=== PATIENT | female | born 1935 | race Caucasian/White ===

== ENCOUNTER 2016-08-08 11:27 | Emergency (ER) | payer OTHER ==
[~2016-08-08] VITALS: Ht 154.9 cm; Wt 74.0 kg
[~2016-08-08 11:27] MED LIST: CLCC1250; CLTP; CYAN10005; FLV1; FSM70; LEVO-366 PO; METH2.5T; NAPR-1169; PROM25TA PO; [UNRECOGNIZED DRUG - CODE]
[2016-08-08 11:32] VITALS: TEMP 37.2; Ht 154.9 cm; Wt 74.0 kg
[2016-08-08 12:26] LABS: URINE APPEARANCE CLEAR (CLEAR); URINE BILIRUBIN NEG (NEG); URINE COLOR YELLOW; URINE EPITHELIAL CELL AUTO 20-30 /lpf (0-5); URINE NITRITE NEG (NEG); URINE PH 5.5 (4.5-7.5); URINE SPECIFIC GRAVITY 1.021 (1.000-1.030); UROBILINOGEN NEG (NEG)
[2016-08-08 12:36] LABS: MANUAL MICROSCOPIC REQUIRED? NO; REVIEW REQ? NO
[2016-08-08 13:28] LABS: BASO % 0.2 %; BASO ABS # 0.02 K/uL (0-0.2); COMPLETE YES; EOS % 0.4 %; HEMATOCRIT 39.8 % (37-47); IG% 0.3 %; LYMPH % 18.3 %; MEAN CELL VOLUME 94.5 fL (80-100); MEAN CORPUSCULAR HEMOGLOBIN 31.4 pg (25-34); MEAN CORPUSCULAR HGB CONC 33.2 g/dl (32-36); MONO % 8.4 %; NEUT % 72.4 %; PLATELET COUNT 260 K/uL (130-400); RED BLOOD COUNT 4.21 M/uL (4.2-5.4)
--- NOTE | 2016-08-08 13:37 | DIAGNOSTIC IMAGING REPORT ---
CT OF THE ABDOMEN AND PELVIS WITHOUT CONTRAST CLINICAL HISTORY: Hematuria, suprapubic pain. COMPARISON STUDY: Renal ultrasound October 07, 2007. TECHNIQUE: Axial images of the abdomen and pelvis were obtained without IV contrast. Images were reviewed in the axial, sagittal, and coronal planes. FINDINGS: A few calcified left lower lobe granulomas are noted. There is a small hiatal hernia. No renal, ureteral or bladder calculi are identified. There is no hydronephrosis or hydroureter. A 1.4 cm lesion within the mid to lower pole of the left kidney is suboptimally assessed on this unenhanced exam but measures water attenuation and favors a cyst. Evaluation of the remainder of the abdomen and pelvis is suboptimal on this unenhanced exam. The liver, spleen, adrenal glands and pancreas are normal. There is no lymphadenopathy. There is no evidence for a bowel obstruction. There is extensive sigmoid diverticulosis without evidence for acute diverticulitis. Bladder suboptimally assessed given underdistention. There are no suspicious osseous lesions. There are multilevel degenerative changes within the lumbar spine. There is no ascites. IMPRESSION: 1. No urinary calculi or hydronephrosis. 2. No acute process within the abdomen or pelvis on unenhanced exam. 3. Suboptimal evaluation of the bladder given lack of IV contrast and underdistention. Decreased sensitivity for detection of urothelial lesions on this exam. Electronically signed by: Gregory Ly M.D. 08/08/2016 1:35 PM Dictated Date/Time: 08/08/2016 1:26 PM
[2016-08-08 13:45] LABS: BUN/CREATININE RATIO 20.8 (10-20); CALCIUM 9.9 mg/dl (8.5-10.1); CREATININE 1.1 mg/dl (0.60-1.20); POTASSIUM 3.4 mmol/L (3.5-5.1)
[2016-08-08] MEDS ORDERED: CYAN100020 PO (14:20)
[2016-08-08] MEDS ORDERED: PRLSR20 PO (14:20)
[2016-08-08] MEDS ORDERED: ALEN70TA2 PO (14:20)
[2016-08-08] MEDS ORDERED: FOLI1TAB7 PO (14:20)
[2016-08-08] MEDS ORDERED: CIPR1TAB11 PO (14:20)
[2016-08-08] MEDS ORDERED: METH2.5T PO (14:20)
[2016-08-08] MEDS ORDERED: MXZC25 PO (14:20)
[2016-08-08] MEDS ORDERED: CALC200T PO (14:21)
[2016-08-08 14:27] VITALS: BP 167/97; PULSE 89; O2SAT 96
[2016-08-08] MEDS ORDERED: NITR-5 PO (14:57)
--- NOTE | 2016-08-11 07:51 | EMERGENCY ROOM VISIT NOTE ---
History First contact with patient: 11:44 Chief Complaint: URINARY SYMPTOMS Stated Complaint: BLADDER INFECTION Nursing Triage Summary: pt here with urinary burning and frequency last pm. pt states hx of bladder infections. pt states some soreness to lower abd area and across low back History of Present Illness The patient is a 81 year old white female who presents to the Emergency Room with complaints of suprapubic discomfort, urinary urgency and frequency, and burning when she pes. She denies any blood. Symptoms started last evening. She states she also had some urinary incontinence last night. She has a history of bladder infections, and her most recent one was in May. She describes some soreness in her low back. No fevers or chills. No nausea or vomiting. No upper abdominal pain. Her daughter accompanies her today. She has not contacted her PCP. She denies any other concerns. Review of Systems REVIEW OF SYSTEM: HEENT: No dizziness, visual problems, hearing loss, or tinnitus. There is no difficulty swallowing and no oral lesions are present. LYMPH: No adenopathy. PULMONARY: No cough, shortness of breath, sputum production or hemoptysis. CARDIOVASCULAR: No chest pain, palpitations, shortness of breath or peripheral edema. GASTROINTESTINAL: No diarrhea, constipation, nausea, vomiting, or abdominal pain. GENITOURINARY: positive dysuria, frequency, urgency and nocturia. NEUROLOGIC: No weakness, muscle tenderness, epilepsy or history of neurological problems. MUSCULOSKELETAL: No history of joint tenderness/swelling. Positive history of arthritis and arthralgias. SKIN: No rashes or lesions. ENDOCRINE: No history of diabetes, thyroid disorders, or abnormal hair growth. Past Medical/Surgical History Past medical history: Significant for GERD, UTIs, osteoporosis, osteoarthritis Previous surgeries: None Family History Significant for diabetes, heart disease, hypertension, cancer, and kidney disease. Parents are . Social History Smoking Status: Never Smoker Smokeless Tobacco Use: No Alcohol Use: none Drug Use: none Marital Status: Housing Status: lives with family Occupation Status: retired Current/Historical Medications Scheduled Alendronate Sodium (Fosamax), 70 MG PO WK Calcium Carbonate-Vitamin D (Oscal 500/200 D-3), 1 TAB PO BID Ciprofloxacin Tab (Cipro), 250 MG PO BID Cyanocobalamin (Vitamin B12), 1,000 MCG PO DAILY Folic Acid (Folvite), 1 MG PO DAILY Methotrexate (Methotrexate), 15 MG PO WK Nitrofurantoin Monohyd Macrocr (Macrobid), 100 MG PO BID Omeprazole (Prilosec), 20 MG PO DAILY Triamterene/Hctz (Triamterene/Hctz 37.5-25MG Tab), 1 TAB PO DAILY Allergies Coded Allergies: No Known Allergies (Unverified Allergy, Mild, 10/17/05) Uncoded Allergies: LATEX-NO (Allergy, Unknown, 05/09/02) N (Allergy, Unknown, 03/23/02) NONE (Allergy, Unknown, 03/23/02) Physical Exam Vital Signs Date Time Temp Pulse Resp B/P (MAP) Pulse Ox O2 Delivery O2 Flow Rate FiO2 08/08/16 14:27 89 16 167/97 96 Room Air 08/08/16 13:10 87 18 173/86 95 Room Air 08/08/16 11:32 37.2 103 20 164/87 94 Room Air Pain Rating (0-10): 0 Physical Exam Gen.: Well-developed, frail, elderly white female, in no acute distress. Sitting on a bed. Alert and oriented. Skin:Warm and dry with fair turgor. No rashes or lesions. No ecchymosis or erythema. The patient is not diaphoretic. No abrasions. Heart: Heart RRR. No GR. Soft systolic murmur is noted. Peripheral pulses are 2+. Lungs: Lungs are clear to auscultation. No crackles rhonchi or wheezing. Good air movement. The patient is able to take a deep breath. Abdomen: Abdomen was inspected, auscultated, and palpated. Bowel sounds present x 4. Soft, suprapubic discomfort to palpation. No hepato- splenomegaly. No masses noted. No rebound. No pain over McBurney's point. No CVA tenderness. Musculoskeletal: Gross motor function of the upper and lower extremities is intact and unremarkable. Medical Decision & Procedures ER Provider Diagnostic Interpretation: CT imaging of the abdomen and pelvis without IV contrast was obtained. No evidence for urinary calculi or hydronephrosis. No acute process within the abdomen or pelvis. Laboratory Results 08/08/16 13:05 Red Blood Count 4.21, Mean Corpuscular Volume 94.5, Mean Corpuscular Hemoglobin 31.4, Mean Corpuscular Hemoglobin Concent 33.2, Mean Platelet Volume 10.0, Neutrophils (%) (Auto) 72.4, Lymphocytes (%) (Auto) 18.3, Monocytes (%) (Auto) 8.4, Eosinophils (%) (Auto) 0.4, Basophils (%) (Auto) 0.2, Neutrophils # (Auto) 9.49, Lymphocytes # (Auto) 2.40, Monocytes # (Auto) 1.10, Eosinophils # (Auto) 0.05, Basophils # (Auto) 0.02 08/08/16 13:05 Test 08/08/16 11:50 08/08/16 13:05 Urine Color YELLOW Urine Appearance CLEAR (CLEAR) Urine pH 5.5 (4.5-7.5) Urine Specific [place] 1.021 (1.000-1.030) Urine Protein TRACE (NEG) Urine Glucose (UA) NEG (NEG) Urine Ketones NEG (NEG) Urine Occult Blood 3+ (NEG) Urine Nitrite NEG (NEG) Urine Bilirubin NEG (NEG) Urine Urobilinogen NEG (NEG) Urine Leukocyte Esterase TRACE (NEG) Urine WBC (Auto) 1-5 /hpf (0-5) Urine RBC (Auto) 10-30 /hpf (0-4) Urine Hyaline Casts (Auto) 1-5 /lpf (0-5) Urine Epithelial Cells (Auto) 20-30 /lpf (0-5) Urine Bacteria (Auto) NEG (NEG) White Blood Count 13.10 K/uL (4.8-10.8) Red Blood Count 4.21 M/uL (4.2-5.4) Hemoglobin 13.2 g/dL (12.0-16.0) Hematocrit 39.8 % (37-47) Mean Corpuscular Volume 94.5 fL (80-100) Mean Corpuscular Hemoglobin 31.4 pg (25-34) Mean Corpuscular Hemoglobin Concent 33.2 g/dl (32-36) Platelet Count 260 K/uL (130-400) Mean Platelet Volume 10.0 fL (7.4-10.4) Neutrophils (%) (Auto) 72.4 % Lymphocytes (%) (Auto) 18.3 % Monocytes (%) (Auto) 8.4 % Eosinophils (%) (Auto) 0.4 % Basophils (%) (Auto) 0.2 % Neutrophils # (Auto) 9.49 K/uL (1.4-6.5) Lymphocytes # (Auto) 2.40 K/uL (1.2-3.4) Monocytes # (Auto) 1.10 K/uL (0.11-0.59) Eosinophils # (Auto) 0.05 K/uL (0-0.5) Basophils # (Auto) 0.02 K/uL (0-0.2) RDW Standard Deviation 48.0 fL (36.4-46.3) RDW Coefficient of Variation 14.1 % (11.5-14.5) Immature Granulocyte % (Auto) 0.3 % Immature Granulocyte # (Auto) 0.04 K/uL (0.00-0.02) Anion Gap 8.0 mmol/L (3-11) Est Creatinine Clear Calc Drug Dose 38.1 ml/min Estimated GFR () 55.3 Estimated GFR (Non- 47.7 BUN/Creatinine Ratio 20.8 (10-20) Calcium Level 9.9 mg/dl (8.5-10.1) Total Bilirubin 1.7 mg/dl (0.2-1) Aspartate Amino Transf (AST/SGOT) 18 U/L (15-37) Alanine Aminotransferase (ALT/SGPT) 19 U/L (12-78) Alkaline Phosphatase 99 U/L (45-117) Total Protein 8.6 gm/dl (6.4-8.2) Albumin 4.4 gm/dl (3.4-5.0) Globulin 4.2 gm/dl (2.5-4.0) Albumin/Globulin Ratio 1.0 (0.9-2) Date/Time Source Procedure Growth Status 08/08/16 11:50 Urine , Clean Catch Urine Culture - Final THREE TYPES OF ORGANISMS PRESENT, ALL... Complete CBC, chem panel, and UA were obtained. CBC mildly elevated at 13. Potassium 3.4, BUN 23, total bilirubin 1.7, glucose 116. UA obtained today shows clear yellow urine with trace protein and 3+ blood. Trace leukocyte esterase, no bacteria, and significant epithelials. It was sent for culture. ED Course Patient and her daughter were educated regarding today's findings. Conservative care measures were discussed. IV was established. Labs were obtained. UA was also obtained. Due to the blood in her urine and her age, CT scan of the abdomen and pelvis was obtained to rule out tumors or other intra- abdominal abnormality. This was read by radiology as unremarkable. Her urine will be sent for culture. She'll be started on Macrobid for a week for the dysuria until cultures are completed. Maintain hydration. Return to the ED for any acute worsening of symptoms or follow up with her PCP this week for reexamination. Patient was seen in conjunction with Dr. Kaiser, who also evaluated the patient and concurred with today's diagnosis and treatment plan. Medical Decision Possibility of bladder cancer, UTI, ureteral stone, cystitis, and vaginal tumor were also considered. Impression Primary Impression: Hematuria Additional Impression: Dysuria Departure Information Dispostion Home / Self-Care Condition GOOD Prescriptions Nitrofurantoin Monohyd Macrocr (Macrobid) 100 Mg Cap 100 MG PO BID for 7 Days, #14 CAP Prov: Shashank Etienne,P.A. 08/08/16 Forms HOME CARE DOCUMENTATION FORM, TYLENOL USE, IMPORTANT VISIT INFORMATION Patient Instructions My [facility] Additional Instructions Maintain hydration Return to the ED for any acute worsening of symptoms Macrobid 1 pill twice a day 7 days Follow-up with your primary care doctor this week for reexamination Problem Qualifiers
== END 2016-08-08 15:07 | disposition home or self-care (01) ==
LOC: C.EDB 11:30
DX: R30.0 Dysuria (principal); R31.9 Hematuria, unspecified; K21.9 Gastro-esophageal reflux disease without esophagitis; Z87.440 Personal history of urinary (tract) infections; M81.0 Age-related osteoporosis without current pathological fracture; M19.90 Unspecified osteoarthritis, unspecified site; Z83.3 Family history of diabetes mellitus; Z82.49 Family history of ischemic heart disease and other diseases of the circulatory system; Z80.9 Family history of malignant neoplasm, unspecified; Z84.1 Family history of disorders of kidney and ureter; Z79.899 Other long term (current) drug therapy

== ENCOUNTER 2017-01-14 10:06 | Emergency (ER) | payer OTHER ==
[~2017-01-14] VITALS: Ht 154.9 cm; Wt 71.2 kg
[~2017-01-14 10:06] MED LIST changes: +FOLI1TAB7 PO; -FOLI1TAB8 PO; -ONDA4TAB10 SL
[2017-01-14 10:21] VITALS: Ht 154.9 cm; Wt 71.2 kg
[2017-01-14 11:25] LABS: BASO % 0.4 %; BASO ABS # 0.03 K/uL (0-0.2); COMPLETE YES; EOS % 1.5 %; HEMATOCRIT 35.9 % (37-47); IG% 0.3 %; LYMPH % 16.6 %; LYMPH ABS # 1.19 K/uL (1.2-3.4); MEAN CORPUSCULAR HEMOGLOBIN 31.4 pg (25-34); MEAN CORPUSCULAR HGB CONC 33.4 g/dl (32-36); MEAN PLATELET VOLUME 9.5 fL (7.4-10.4); MONO % 12.4 %; NEUT % 68.8 %; PLATELET COUNT 266 K/uL (130-400); RED BLOOD COUNT 3.82 M/uL (4.2-5.4); WHITE BLOOD COUNT 7.16 K/uL (4.8-10.8)
--- NOTE | 2017-01-14 11:29 | EMERGENCY ROOM VISIT NOTE ---
History Report prepared by Sharron: Lee Ann Gomez Under the Supervision of: Dr. Ynes Renner M.D. First contact with patient: 11:09 Chief Complaint: ABDOMINAL PAIN Stated Complaint: ABDOMINAL PAIN Nursing Triage Summary: PT PRESENTS TO ROOM B03B VIA BLS. PT WAS BEING SEEN AT [facility] FOR URINARY URGENCY AND INCONTIENCE WHICH STARTED YESTERDAY. PT REPORTS GENERALIZED ABD "SORENESS" STARTED THIS AM AND THAT SHE HAS BEEN NAUSEATED. History of Present Illness The patient is a 81 year old female who presents to the Emergency Room with complaints of persistent urinary symptoms that began yesterday. She currently rates her discomfort as a 5/10 in severity. The patient states that yesterday her symptoms began a few days ago. She reports urinary urgency and incontinence. The patient denies any back pain or odor to her urine. She states that she scheduled an appointment with her urologist today, Dr. Mcintosh, noting that she was referred to the emergency department for further work up. The patient states that she follows with Dr. Mcintosh for frequent UTIs. She denies any history of kidney stones. The patient states that today she developed nausea and abdominal pain. She states that she was coughing up phlegm. The patient reports a history of arthritis, but denies any history of diabetes. She denies any fever or vomiting. Source of History: patient Onset: yesterday Position: other (global) Symptom Intensity: 5/10 Quality: other (urinary symptoms) Timing: other (persistent) Associated Symptoms: + cough, + nausea, + abdominal pain, No fevers, No vomiting, No back pain Review of Systems See HPI for pertinent positives & negatives. A total of 10 systems reviewed and were otherwise negative. Past Medical & Surgical Medical Problems: (1) No pertinent past medical history Family History Cancer Diabetes mellitus Heart disease Hypertension Kidney disease Kidney stones Social History Smoking Status: Never Smoker Alcohol Use: none Drug Use: none Marital Status: Housing Status: lives with family Occupation Status: retired Current/Historical Medications Scheduled Alendronate Sodium (Fosamax), 70 MG PO WK Calcium Carbonate-Vitamin D (Oscal 500/200 D-3), 1 TAB PO BID Ciprofloxacin Tab (Cipro), 250 MG PO BID Ciprofloxacin Tab (Cipro), 250 MG PO BID Cyanocobalamin (Vitamin B12), 1,000 MCG PO QAM Folic Acid (Folvite), 1 MG PO QAM Methotrexate (Methotrexate), 15 MG PO WK Omeprazole (Prilosec), 20 MG PO HS Ondasetron Odt (Zofran Odt), 4 MG SL Q6H Triamterene/Hctz (Triamterene/Hctz 37.5-25MG Tab), 1 TAB PO DAILY Allergies Coded Allergies: No Known Allergies (Unverified , 01/14/17) Uncoded Allergies: LATEX-NO (Allergy, Unknown, 05/09/02) N (Allergy, Unknown, 03/23/02) NONE (Allergy, Unknown, 03/23/02) Physical Exam Vital Signs Date Time Temp Pulse Resp B/P (MAP) Pulse Ox O2 Delivery O2 Flow Rate FiO2 01/14/17 13:30 36.6 88 20 146/91 94 01/14/17 11:48 36.6 88 20 135/95 94 Room Air 01/14/17 10:21 36.6 88 20 154/85 94 Room Air Physical Exam Vital signs reviewed. General: Well-appearing female, in no significant distress. HEENT: No scleral icterus, PERRLA, neck supple. Atraumatic. Cardiovascular: Regular rate and rhythm, no extra sounds. Pulmonary: Clear to auscultation bilaterally, normal work of breathing. Abdomen: Soft, mild suprapubic abdominal tenderness, nondistended, positive bowel sounds. Musculoskeletal: Atraumatic, no peripheral edema. Neurologic: Patient awake alert and oriented x 3, full strength in all 4 extremities. Cranial nerves 2 through 12 grossly intact. Skin: Warm, dry, no rash Medical Decision & Procedures Laboratory Results 01/14/17 11:10 Red Blood Count 3.82, Mean Corpuscular Volume 94.0, Mean Corpuscular Hemoglobin 31.4, Mean Corpuscular Hemoglobin Concent 33.4, Mean Platelet Volume 9.5, Neutrophils (%) (Auto) 68.8, Lymphocytes (%) (Auto) 16.6, Monocytes (%) (Auto) 12.4, Eosinophils (%) (Auto) 1.5, Basophils (%) (Auto) 0.4, Neutrophils # (Auto ) 4.92, Lymphocytes # (Auto) 1.19, Monocytes # (Auto) 0.89, Eosinophils # (Auto ) 0.11, Basophils # (Auto) 0.03 01/14/17 11:10 Test 01/14/17 11:10 01/14/17 12:25 White Blood Count 7.16 K/uL (4.8-10.8) Red Blood Count 3.82 M/uL (4.2-5.4) Hemoglobin 12.0 g/dL (12.0-16.0) Hematocrit 35.9 % (37-47) Mean Corpuscular Volume 94.0 fL (80-100) Mean Corpuscular Hemoglobin 31.4 pg (25-34) Mean Corpuscular Hemoglobin Concent 33.4 g/dl (32-36) Platelet Count 266 K/uL (130-400) Mean Platelet Volume 9.5 fL (7.4-10.4) Neutrophils (%) (Auto) 68.8 % Lymphocytes (%) (Auto) 16.6 % Monocytes (%) (Auto) 12.4 % Eosinophils (%) (Auto) 1.5 % Basophils (%) (Auto) 0.4 % Neutrophils # (Auto) 4.92 K/uL (1.4-6.5) Lymphocytes # (Auto) 1.19 K/uL (1.2-3.4) Monocytes # (Auto) 0.89 K/uL (0.11-0.59) Eosinophils # (Auto) 0.11 K/uL (0-0.5) Basophils # (Auto) 0.03 K/uL (0-0.2) RDW Standard Deviation 49.1 fL (36.4-46.3) RDW Coefficient of Variation 14.5 % (11.5-14.5) Immature Granulocyte % (Auto) 0.3 % Immature Granulocyte # (Auto) 0.02 K/uL (0.00-0.02) Anion Gap 7.0 mmol/L (3-11) Est Creatinine Clear Calc Drug Dose 46.2 ml/min Estimated GFR () 71.4 Estimated GFR (Non- 61.6 BUN/Creatinine Ratio 15.9 (10-20) Calcium Level 9.6 mg/dl (8.5-10.1) Total Bilirubin 0.9 mg/dl (0.2-1) Aspartate Amino Transf (AST/SGOT) 23 U/L (15-37) Alanine Aminotransferase (ALT/SGPT) 20 U/L (12-78) Alkaline Phosphatase 88 U/L (45-117) Total Protein 7.9 gm/dl (6.4-8.2) Albumin 3.6 gm/dl (3.4-5.0) Globulin 4.3 gm/dl (2.5-4.0) Albumin/Globulin Ratio 0.8 (0.9-2) Lipase 57 U/L (73-393) Urine Color YELLOW Urine Appearance CLEAR (CLEAR) Urine pH 6.5 (4.5-7.5) Urine Specific [place] 1.011 (1.000-1.030) Urine Protein NEG (NEG) Urine Glucose (UA) NEG (NEG) Urine Ketones TRACE (NEG) Urine Occult Blood 2+ (NEG) Urine Nitrite NEG (NEG) Urine Bilirubin NEG (NEG) Urine Urobilinogen NEG (NEG) Urine Leukocyte Esterase SMALL (NEG) Urine WBC (Auto) 10-30 /hpf (0-5) Urine RBC (Auto) 10-30 /hpf (0-4) Urine Hyaline Casts (Auto) 1-5 /lpf (0-5) Urine Epithelial Cells (Auto) 10-20 /lpf (0-5) Urine Bacteria (Auto) 4+ (NEG) Laboratory results per my review. Medications Administered Medications (Trade) Dose Ordered Sig/Ayah Route Start Time Stop Time Status Last Admin Dose Admin Ciprofloxacin (Ciprofloxacin Tab) 250 mg NOW STAT PO 01/14/17 13:01 01/14/17 13:06 DC 01/14/17 13:01 250 MG Ondansetron HCl (Zofran Inj) 4 mg NOW STAT IV 01/14/17 13:15 01/14/17 13:16 DC 01/14/17 13:15 4 MG ED Course 1112: Past medical records reviewed. The patient was evaluated in room B3A. A complete history and physical examination was performed. 1120: I discussed the patients case with [facility]. They state that the nurse sent the patient here for further evaluation and treatment. 1300: I reevaluated the patient and she is resting comfortably. I discussed the exam findings with her and I discussed the treatment plan. She verbalized complete understanding and agreement. She is ready to go home. 1301: Ordered Ciprofloxacin 250 mg PO. 1315: Ordered Zofran Inj 4 mg IV. 1330: The exam findings were discussed with the patient and so was the treatment plan. The patient was well at the time of discharge and is ready to go home. Medical Decision Differential diagnosis: Etiologies such as appendicitis, diverticulitis, PUD, biliary pathology, UTI, pancreatitis, obstruction, mesenteric ischemia, aortic pathology, infections, inflammatory bowel disease, renal colic, as well as others were entertained. This pt was evaluated and appeared to be in no distress. IV access was obtained and lab work was drawn. UA is positive for UTI. As pt was sent from urology office, KATHIE Tobar was contacted to be sure no further workup was desired. It sounds as if the triage nurse referred pt to the ED for treatment. Based on previous urine cx results and creatinine clearance, the pt was given cipro 250 mg BID for 7 days. She will f/u with PCP and urology this week. Pt will return to the ED for worsening of symptoms or any medical concerns. Medication Reconcilliation Current Medication List: was personally reviewed by me Blood Pressure Screening Patient's blood pressure: Elevated blood pressure Blood pressure disposition: Elevated BP felt to be situational, Did not require urgent referral Consults Time Called: 1119 Consulting Physician: Blas Tobar PA-C Returned Call: 1120 I discussed the patients case with Blas Tobar PA-C. They state that the nurse sent the patient here for further evaluation and treatment. Impression Primary Impression: Urinary tract infection Scribe Attestation The scribe's documentation has been prepared under my direction and personally reviewed by me in its entirety. I confirm that the note above accurately reflects all work, treatment, procedures, and medical decision making performed by me. Departure Information Dispostion Home / Self-Care Prescriptions Ondasetron Odt (ZOFRAN ODT) 4 Mg Tab 4 MG SL Q6H for Nausea, #10 TAB Prov: Ynes Renner M.D. 01/14/17 Ciprofloxacin Tab (Cipro) 250 Mg Tab 250 MG PO BID for 7 Days, #14 TAB Prov: Ynes Renner M.D. 01/14/17 Referrals Sid Roche M.D. (PCP) Forms Call Back Authorization, HOME CARE DOCUMENTATION FORM, IMPORTANT VISIT INFORMATION Patient Instructions My [facility] Additional Instructions Diagnosis: UTI Zofran 4 mg ODT every 6 hours as needed for nausea. Cipro 250 mg twice daily for 7 days. Drink plenty of clear fluids. Follow-up with your urologist this week for reevaluation. Return to the ER for worsening of symptoms or any medical concerns.
[2017-01-14 11:56] LABS: BUN/CREATININE RATIO 15.9 (10-20); CALCIUM 9.6 mg/dl (8.5-10.1); CREATININE 0.89 mg/dl (0.60-1.20); POTASSIUM 3.7 mmol/L (3.5-5.1)
[2017-01-14 11:59] LABS: ALB/GLOB RATIO 0.8 (0.9-2)
[2017-01-14 12:45] LABS: URINE APPEARANCE CLEAR (CLEAR); URINE BILIRUBIN NEG (NEG); URINE COLOR YELLOW; URINE NITRITE NEG (NEG); URINE PH 6.5 (4.5-7.5); URINE SPECIFIC GRAVITY 1.011 (1.000-1.030); UROBILINOGEN NEG (NEG); ZZUR CULT IF INDIC CLEAN CATCH YES
[2017-01-14 12:48] LABS: MANUAL MICROSCOPIC REQUIRED? NO; REVIEW REQ? NO
[2017-01-14] MEDS ORDERED: CIPROFLOXACIN 250 MG TAB PO STA (13:01)
[2017-01-14] MEDS ORDERED: ONDANSETRON INJ 2 MG/ML 2 ML VIAL IV STA (13:15)
[2017-01-14] MEDS ORDERED: CIPR1TAB11 PO (13:18)
[2017-01-14] MEDS ORDERED: ONDA4TAB10 SL (13:18)
[2017-01-14 13:30] VITALS: BP 146/91; PULSE 88; TEMP 36.6; O2SAT 94
== END 2017-01-14 13:32 | disposition home or self-care (01) ==
LOC: EDBD 10:06 → C.EDB 10:07
DX: N39.0 Urinary tract infection, site not specified (principal); M19.90 Unspecified osteoarthritis, unspecified site; Z83.3 Family history of diabetes mellitus; Z82.49 Family history of ischemic heart disease and other diseases of the circulatory system; Z84.1 Family history of disorders of kidney and ureter; Z87.440 Personal history of urinary (tract) infections

== ENCOUNTER → 2017-01-14 | Outpatient (CLI) | payer OTHER ==
[~2017-01-14] MED LIST changes: +ALEN70TA2 PO; +CALC200T PO; +CIPR1TAB11 PO; -CLCC1250; -CLTP; +CYAN100020 PO; -CYAN10005; -FLV1; +FOLI1TAB8 PO; -FSM70; -LEVO-366 PO; -METH2.5T; +METH2.5T PO; +MXZC25 PO; -NAPR-1169; +ONDA4TAB10 SL; +PRLSR20 PO; -PROM25TA PO; -[UNRECOGNIZED DRUG - CODE]
== END | disposition home or self-care (01) ==
LOC: C.LABSPEC 11:12
PROVIDERS: ATTEND Urology
DX: N39.0 Urinary tract infection, site not specified (principal)

== ENCOUNTER → 2017-04-20 | Outpatient (CLI) | payer OTHER ==
[~2017-04-20] MED LIST changes: -FOLI1TAB7 PO; +FOLI1TAB8 PO; +ONDA4TAB10 SL
--- NOTE | 2017-04-20 08:35 | DIAGNOSTIC IMAGING REPORT ---
(RENAL)RETROPERITON COMP HISTORY: 81 years-old Female Z00.00 Health [id number] Recurrent [id number] screening study in a patient with history of hematuria. COMPARISON: CT abdomen and pelvis 08/08/2016 TECHNIQUE: Multiple real-time sonographic images of the kidneys and urinary bladder were obtained assessing grayscale appearance and color flow FINDINGS: The right kidney measures 8.9 x 4.0 x 4.1 cm and is within normal limits without hydronephrosis, renal calculi or focal mass lesions. Left kidney measures 9.0 x 4.4 x 5.0 cm and demonstrates no renal calculi or hydronephrosis. Cysts of the left kidney are seen measuring up to 1.5 cm within the lower pole. 1.2 cm renal sinus cyst noted. Urinary bladder is unremarkable with bilateral ureteral jets identified. IMPRESSION: 1. Unremarkable sonographic appearance of the kidneys and urinary bladder without renal calculi or hydronephrosis. 2. Left renal cysts. The above report was generated using voice recognition software. It may contain grammatical, syntax or spelling errors. Electronically signed by: Efren Deal M.D. 04/20/2017 8:34 AM Dictated Date/Time: 04/20/2017 8:30 AM
== END | disposition home or self-care (01) ==
LOC: C.ULTR 07:59
PROVIDERS: ATTEND Urology
DX: N39.0 Urinary tract infection, site not specified (principal); Z00.00 Encounter for general adult medical examination without abnormal findings

== ENCOUNTER → 2017-04-28 | Outpatient (CLI) | payer OTHER | END | disposition home or self-care (01) | LOC: C.LABSPEC 17:22 | PROVIDERS: ATTEND Urology | DX: N39.0 Urinary tract infection, site not specified (principal) ==

== ENCOUNTER 2024-03-21 17:29 | Inpatient (IN) ==
[2024-03-21 19:05] LABS: Appearance Urine Clear (Clear); Bacteria Urine Automated None Seen (None Seen); Bilirubin Urine Negative (Negative); Blood Urine 2+ (Negative); Cast Urine Automated 0-2 /lpf (0-2); Color Urine Yellow; Epithelial Cell Urine Auto 0-2 /hpf (0-2); Glucose Urine UA Negative (Negative); Ketones Urine Negative (Negative); Leukocyte Esterase Urine Negative (Negative); Nitrite Urine Negative (Negative); Protein Urine Negative (Negative); RBC Urine Automated >20 /hpf (0-2); Specific Gravity Urine 1.014 (1.000-1.030); Urobilinogen Urine Negative (Negative); WBC Urine Automated 0-5 /hpf (0-5); pH Urine 7.5 (4.5-7.5)
[2024-03-21 19:22] LABS: Basophils # (auto) 0.04 K/uL (0.00-0.20); Basophils % (auto) 0.4 %; Eosinophils # (auto) 0.01 K/uL (0.00-0.50); Eosinophils % (auto) 0.1 %; Hematocrit (blood only) 37.1 % (37.0-47.0); Hemoglobin 12.7 g/dl (12.0-16.0); Immature Granulocytes # (auto) 0.04 K/uL (0.01-0.20); Immature Granulocytes % (auto) 0.4 %; Lymphocytes # (auto) 2.26 K/uL (1.20-3.40); Lymphocytes % (auto) 21.4 %; Mean Corpuscular Hemoglobin 29.8 pg (25.0-34.0); Mean Corpuscular Hgb Conc 34.2 g/dL (32.0-36.0); Mean Corpuscular Volume 87.1 fL (80.0-100.0); Mean Platelet Volume 8.6 fL (9.4-12.4); Monocytes # (auto) 1.02 K/uL (0.11-0.59); Monocytes % (auto) 9.6 %; Neutrophils % (auto) 68.1 %; Platelet Count 314 K/uL (130-400); Red Blood Count 4.26 M/uL (4.20-5.40); White Blood Count 10.57 K/ul (4.8-10.8)
[2024-03-21 19:38] LABS: Alanine Aminotransferase 12 U/L (7-52); Albumin Globulin Ratio 1.3 (0.9-2); Albumin Level 4.7 gm/dl (3.4-5.0); Alkaline Phosphatase 96 U/L (34-104); Anion Gap 9 (3-11); Aspartate Aminotransferase 22 U/L (13-39); BUN Creatinine Ratio 21.2 (10-20); Bilirubin,Total 1.3 mg/dl (0.2-1.0); Blood Urea Nitrogen 22 mg/dl (6-23); Carbon Dioxide 30 mmol/L (21-32); Chloride 86 mmol/L (98-107); Globulin 3.5 gm/dl (2.5-4.0); Glucose 148 mg/dl (70-99(Fasting)); Potassium 3.6 mmol/L (3.5-5.1); Sodium 125 mmol/L (136-145); Total Protein 8.2 gm/dl (6.0-8.3)
[2024-03-21] MEDS: ONDANSETRON INJ 2 MG/ML 2 ML VIAL IV STA (22:25)
[2024-03-21] MEDS: PROMETHAZINE 6.25 MG/50.25 ML BAG IV STA (22:25)
[2024-03-21] MEDS: SODIUM CHLORIDE 0.9% 1,000 ML IV ONE (22:25)
[2024-03-21] MEDS: ACETAMINOPHEN 500 MG TAB PO STA (22:45)
[2024-03-21] MEDS: MoRPHine SULFATE 2 MG/ML CARP IV STA (22:49)
[2024-03-21] MEDS: LABETALOL HCL IV 5 MG/ML 20ML IV STA (23:42)
--- NOTE | 2024-03-22 00:09 | History & Physical Report ---
Date of Service March 21, 2024 Assessment & Plan (1) Hyponatremia: Plan: 88-year-old female with past medical history significant for hyperlipidemia, chronic sinusitis, hypertension, GERD, CKD stage III, osteoporosis, hard of hearing, rheumatoid arthritis involving multiple sites with positive rheumatoid factor who lives at home with her daughter and ambulates with a walker comes because of weakness and nausea and found to have hyponatremia. As per daughters patient since last 3 days was feeling sick to the stomach and weak. Nauseous but no vomiting. No diarrhea. Normal bowel movements. Micturating okay. No burning micturition. No fevers. Complains of some abdominal discomfort in the right lower quadrant. Denies any chest pain. No shortness of breath. No headache. No runny nose or sore throat. No difficulty swallowing. Alert and oriented x 3. Resting comfortably and hemodynamically stable. Complains of back pain for sitting in the chair for long time. Hyponatremia Sodium 125 Will hold Maxide Received 1 L fluid in the ER Will continue with normal send 50 mL/h Slow correction BMP every 6 hours Urine osmolality, serum osmolality and urine sodium levels Telemetry Nephro consult in a.m. for further recommendation Hypertensive urgency IV labetalol as needed Holding Maxzide with potassium supplement Lisinopril for now and monitor Abdominal pain will follow ct scan. Hyperlipidemia On statin GERD On omeprazole CKD stage III Creatinine 1.04 We will follow labs DVT prophylaxis Heparin subcu Disposition Telemetry Full code per my discussion with the daughter History of Present Illness Chief Complaint: Weakness, hyponatremia Primary Care Provider: Sid Roche MD 88-year-old female with past medical history significant for hyperlipidemia, chronic sinusitis, hypertension, GERD, CKD stage III, osteoporosis, hard of hearing, rheumatoid arthritis involving multiple sites with positive rheumatoid factor who lives at home with her daughter and ambulates with a walker comes because of weakness and nausea and found to have hyponatremia. As per daughters patient since last 3 days was feeling sick to the stomach and weak. Nauseous but no vomiting. No diarrhea. Normal bowel movements. Micturating okay. No burning micturition. No fevers. Complains of some abdominal discomfort in the right lower quadrant. Denies any chest pain. No shortness of breath. No headache. No runny nose or sore throat. No difficulty swallowing. Alert and oriented x 3. Resting comfortably and hemodynamically stable. Complains of back pain for sitting in the chair for long time. Past medical history. As mentioned above Past surgical history. Colonoscopy. Simple hemorrhoidectomy. Bilateral cataracts. Total hysterectomy. Social history. . No smoking. No alcohol use. No drug use. Family history. Mother had renal failure. Daughter has diabetes. Daughter has rheumatoid arthritis. Son has CA chest. Brother had NC. Brother had RA. Sister has diabetes and valve replacement. Allergies Allergy/AdvReac Type Severity Reaction Status Date / Time nitrofurantoin Allergy Intermediate all over Verified 03/26/23 11:08 pruritic rash trimethoprim Allergy Intermediate Rash Verified 03/26/23 11:08 Sulfa (Sulfonamide AdvReac Severe Gastrointestinal Verified 03/26/23 11:08 Antibiotics) Upset Home Medications Medication Instructions Recorded Confirmed Type atorvastatin 40 mg tablet 40 mg PO DAILY 03/21/24 03/21/24 History baclofen 10 mg tablet 10 mg PO BID 03/21/24 03/21/24 History calcium 600 mg (as 1 tab PO DAILY 03/21/24 03/21/24 History carbonate)-vitamin D3 5 mcg (200 unit) tablet cetirizine 10 mg tablet 10 mg PO DAILY 03/21/24 03/21/24 History cyanocobalamin (vitamin B-12) 1,000 mcg PO DAILY 03/21/24 03/21/24 History 1,000 mcg tablet methenamine hippurate 1 gram tablet 1 g PO BID 03/21/24 03/21/24 History omeprazole 20 mg capsule,delayed 20 mg PO DAILY 03/21/24 03/21/24 History release potassium chloride 20 mEq 20 meq PO DAILY 03/21/24 03/21/24 History tablet,extended release tramadol 50 mg tablet 50 mg PO HS PRN Severe Pain (Scale 03/21/24 03/21/24 History Score 7-10) triamterene 37.5 1 tab PO DAILY 03/21/24 03/21/24 History mg-hydrochlorothiazide 25 mg tablet Past Med/Surg History Problem List (Updated 03/22/24 @ 00:19 by Leander Lewis MD) Hyponatremia Pain in right lower leg Cystitis (Acute) Essential hematuria (Acute) Recurrent UTI (Acute) Urinary tract infection, acute (Acute) Hematuria (Acute) Dysuria (Acute) Urinary tract infection (Acute) Medical History UTI (urinary tract infection) High blood pressure Surgical History H/O: hysterectomy No significant past surgical history Family History Daughter Diabetes Nephrolithiasis Other Family history non-contributory Social History Smoking Status: Never smoker Second Hand Exposure: No; Do You Dip or Chew Tobacco: No; Tobacco Cessation Education Requested by Patient: No Hx Alcohol Use: No Hx Substance Use: No Preferred Language: Albanian Communication Ability: Effective Independent Distributor Required: No Beliefs That Will Affect Care: None Current Living Situation: Family Current Living Situation Comment: lives with daughter Other Information That Helps Us Care for You: No Feels Safe at Home: Yes Safety Concerns: Feels Safe At This Time Assistive Devices: Hospital Bed and Walker Review of Systems Review of Systems: All systems reviewed & are unremarkable except as noted in HPI & below Physical Exam Physical Exam: General- Not in distress Head- atraumatic Eyes- PERRL. ENT- oropharynx clear Neck- supple, no JVD. Lungs- clear to auscultation no wheezing or crackles. Heart- regular rate and rhythm; no murmur, no gallop. Abdomen- normal bowel sounds, soft, mild RLQ tenderness, no rigidity, no distension Extremities- trace pretibial edema present , no erythema seen Neuro- alert, oriented x 3; PERRL, no facial palsy; no dysarthria; moves extremities Results & Data Results & Data Vital Signs (Past 12 Hours) Vital Signs Temp Pulse Pulse Resp BP BP Pulse Ox 03/21/24 21:59 92 H 03/21/24 21:59 90 18 204/95 H 95 03/21/24 19:49 96 H 20 122/81 97 03/21/24 18:16 36.5 C 96 H 22 148/80 H 94 O2 Del Method 03/21/24 21:59 03/21/24 21:59 Room Air 03/21/24 19:49 Room Air 03/21/24 18:16 Room Air Diagnostic Findings Laboratory Results WBC 10.57 K/ul (4.8-10.8) 03/21/24 19:00 RBC 4.26 M/uL (4.20-5.40) 03/21/24 19:00 Hgb 12.7 g/dl (12.0-16.0) 03/21/24 19:00 Hct 37.1 % (37.0-47.0) 03/21/24 19:00 MCV 87.1 fL (80.0-100.0) 03/21/24 19:00 MCH 29.8 pg (25.0-34.0) 03/21/24 19: MCHC 34.2 g/dL (32.0-36.0) 03/21/24 19: RDW Std Deviation 41.0 fL (36.4-46.3) 03/21/24 19: RDW Coeff of Gera 13.0 % (11.5-14.5) 03/21/24 19: Plt Count 314 K/uL (130-400) 03/21/24 19: MPV 8.6 fL (9.4-12.4) L 03/21/24 19:00 Immature Gran % (Auto) 0.4 % 03/21/24 19:00 Neut % (Auto) 68.1 % 03/21/24 19:00 Lymph % (Auto) 21.4 % 03/21/24 19:00 [place] % (Auto) 9.6 % 03/21/24 19:00 Eos % (Auto) 0.1 % 03/21/24 19:00 Baso % (Auto) 0.4 % 03/21/24 19:00 Neut # (Auto) 7.20 K/uL (1.40-6.50) H 03/21/24 19:00 Lymph # (Auto) 2.26 K/uL (1.20-3.40) 03/21/24 19:00 [place] # (Auto) 1.02 K/uL (0.11-0.59) H 03/21/24 19:00 Eos # (Auto) 0.01 K/uL (0.00-0.50) 03/21/24 19:00 Baso # (Auto) 0.04 K/uL (0.00-0.20) 03/21/24 19:00 Immature Gran # (Auto) 0.04 K/uL (0.01-0.20) 03/21/24 19:00 Sodium 125 mmol/L (136-145) L 03/21/24 19:00 Potassium 3.6 mmol/L (3.5-5.1) 03/21/24 19:00 Chloride 86 mmol/L (98-107) L 03/21/24 19:00 Carbon Dioxide 30 mmol/L (21-32) 03/21/24 19:00 Anion Gap 9 (3-11) 03/21/24 19:00 BUN 22 mg/dl (6-23) 03/21/24 19:00 Creatinine 1.04 mg/dl (0.6-1.2) 03/21/24 19:00 Est Cr Clr Drug Dosing Not Reportable 03/21/24 19:00 eGFR 52.34 03/21/24 19:00 BUN/Creatinine Ratio 21.2 (10-20) H 03/21/24 19:00 Glucose 148 mg/dl (70-99(Fasting)) H 03/21/24 19:00 Calcium 10.0 mg/dl (8.6-10.3) 03/21/24 19:00 Total Bilirubin 1.3 mg/dl (0.2-1.0) H 03/21/24 19:00 AST 22 U/L (13-39) 03/21/24 19:00 ALT 12 U/L (7-52) 03/21/24 19:00 Alkaline Phosphatase 96 U/L (34-104) 03/21/24 19:00 Total Protein 8.2 gm/dl (6.0-8.3) 03/21/24 19:00 Albumin 4.7 gm/dl (3.4-5.0) 03/21/24 19:00 Globulin 3.5 gm/dl (2.5-4.0) 03/21/24 19:00 Albumin/Globulin Ratio 1.3 (0.9-2) 03/21/24 19:00 Urine Color Yellow 03/21/24 18:37 Urine Appearance Clear (Clear) 03/21/24 18:37 Urine pH 7.5 (4.5-7.5) 03/21/24 18:37 Ur Specific [place] 1.014 (1.000-1.030) 03/21/24 18:37 Urine Protein Negative (Negative) 03/21/24 18:37 Urine Glucose (UA) Negative (Negative) 03/21/24 18:37 Urine Ketones Negative (Negative) 03/21/24 18:37 Urine Blood 2+ (Negative) H 03/21/24 18:37 Urine Nitrite Negative (Negative) 03/21/24 18:37 Urine Bilirubin Negative (Negative) 03/21/24 18:37 Urine Urobilinogen Negative (Negative) 03/21/24 18:37 Ur Leukocyte Esterase Negative (Negative) 03/21/24 18:37 Urine WBC (Auto) 0-5 /hpf (0-5) 03/21/24 18:37 Urine RBC (Auto) >20 /hpf (0-2) H 03/21/24 18:37 U Hyaline Cast (Auto) 0-2 /lpf (0-2) 03/21/24 18:37 U Epithel Cells (Auto) 0-2 /hpf (0-2) 03/21/24 18:37 Urine Bacteria (Auto) None Seen (None Seen) 03/21/24 18:37 Urine Yeast Present (None Prsent) A 03/21/24 18:37 ECG Additional Comments: ECG. Normal sinus rhythm rate of 89. No significant change was found. Code Status & VTE Plan VTE Prophylaxis Plan VTE Prophylaxis will be ordered: Yes
--- NOTE | 2024-03-22 01:04 | Emergency Department Note ---
Impression & Plan Weakness, Nausea, Acute hyponatremia ED Provider Note NAME: APRIL LOVE AGE: 88 SEX: F : 1935 ARRIVES VIA: Ambulance INFORMANT: [Patient][family] ED PROVIDER(S): [Ritesh Zaidi MD] CHIEF COMPLAINT: Illness HISTORY OF PRESENT ILLNESS: The patient is an 88-year-old female who presents to the ER with complaints of nausea and weakness. 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 There has been no fever, no chest pain, no cough or congestion. No abdominal pain. She has not had diarrhea. Despite all the nausea, she has not vomited. The patient thought she might have a UTI. She has felt similar with urinary infections. PMHx/PSHx/Social Hx: See Below PHYSICAL EXAM: GENERAL: Patient is in no acute distress. HEENT: No acute trauma, normocephalic atraumatic, mucous membranes moist, no nasal congestion. NECK: No stridor, no adenopathy, no meningismus, trachea is midline. LUNGS: Clear to auscultation bilaterally, no wheeze, no rhonchi, breath sounds equal. HEART: Without murmurs gallops or rubs, regular rate and rhythm. ABDOMEN: Soft, nontender, no peritonitis. EXTREMITIES: No cyanosis, full range of motion of all the joints without pain or difficulty. NEUROLOGIC: Oriented x 3, no acute motor or sensory deficits, no focal weakness. SKIN: No jaundice, no diaphoresis. DIFFERENTIAL DIAGNOSIS: UTI, dehydration, electrolyte imbalance, viral illness, among others. EMERGENCY DEPARTMENT PROCEDURES: MEDICAL DECISION MAKING: There is no leukocytosis. No anemia. There was a normal platelet count. Sodium was quite low at 125, this was an acute finding. No renal failure. No concerning liver enzyme elevation. Urinalysis did not show findings of infection. On exam, the patient was not toxic or febrile. There were no focal neurologic findings. The patient presents with some nausea and weakness. I suspect her symptoms are secondary to her hyponatremia. She was given IV saline for hydration, she received IV Zofran for nausea, IV morphine for her right knee pain, IV Phenergan for nausea. The patient is in need of a hospital stay, her electrolytes will require correction. I did speak with the patient and case management, the on-call hospitalist was consulted. Prior/Outside records/notes reviewed: None ECG per my interpretation: Indication was nausea and weakness. The ECG shows a normal sinus rhythm with a rate of 89. There is some baseline artifact. There is no ST elevation, no PVCs. The QTc is 428. Continuous Cardiac Monitoring per my interpretation: An order was placed for continuous cardiac monitoring. The monitor shows a rate of 79 with normal sinus rhythm. Imaging/x-ray results per my interpretation: Chronic Medical/Social conditions affecting care: Advanced age. Care/Management discussed with: Case management, the on-call hospitalist. Level of care consideration(s): After review of the information above and other included data: --I believe the patient requires escalation of care to admission DISPOSITION: Admission Past Med/Surg History Problem List (Updated 03/22/24 @ 15:35 by Ritesh Zaidi MD) Acute hyponatremia (Acute) Nausea (Acute) Weakness (Acute) Hyponatremia Pain in right lower leg Cystitis (Acute) Essential hematuria (Acute) Recurrent UTI (Acute) Urinary tract infection, acute (Acute) Hematuria (Acute) Dysuria (Acute) Urinary tract infection (Acute) Medical History UTI (urinary tract infection) High blood pressure Surgical History H/O: hysterectomy No significant past surgical history Family History Daughter Diabetes Nephrolithiasis Other Family history non-contributory Social History Smoking Status: Never smoker Second Hand Exposure: No; Do You Dip or Chew Tobacco: No; Tobacco Cessation Education Requested by Patient: No Hx Alcohol Use: No Hx Substance Use: No Preferred Language: Vietnamese Communication Ability: Effective Perioperative Nurse Required: No Beliefs That Will Affect Care: None Current Living Situation: Family Current Living Situation Comment: lives with daughter Other Information That Helps Us Care for You: No Feels Safe at Home: Yes Safety Concerns: Feels Safe At This Time Assistive Devices: Walker and Wheelchair Allergies Allergies Allergy/AdvReac Type Severity Reaction Status Date / Time nitrofurantoin Allergy Intermediate all over Verified 03/26/23 11:08 pruritic rash trimethoprim Allergy Intermediate Rash Verified 03/26/23 11:08 Sulfa (Sulfonamide AdvReac Severe Gastrointestinal Verified 03/26/23 11:08 Antibiotics) Upset Home Meds Home Medications Medication Instructions Recorded Confirmed atorvastatin 40 mg tablet 40 mg PO DAILY 03/21/24 03/21/24 baclofen 10 mg tablet 10 mg PO BID 03/21/24 03/21/24 calcium 600 mg (as 1 tab PO DAILY 03/21/24 03/21/24 carbonate)-vitamin D3 5 mcg (200 unit) tablet cetirizine 10 mg tablet 10 mg PO DAILY 03/21/24 03/21/24 cyanocobalamin (vitamin B-12) 1,000 mcg PO DAILY 03/21/24 03/21/24 1,000 mcg tablet methenamine hippurate 1 gram tablet 1 g PO BID 03/21/24 03/21/24 omeprazole 20 mg capsule,delayed 20 mg PO DAILY 03/21/24 03/21/24 release potassium chloride 20 mEq 20 meq PO DAILY 03/21/24 03/21/24 tablet,extended release tramadol 50 mg tablet 50 mg PO HS PRN Severe Pain (Scale 03/21/24 03/21/24 Score 7-10) triamterene 37.5 1 tab PO DAILY 03/21/24 03/21/24 mg-hydrochlorothiazide 25 mg tablet Results & Data (ED) Vital Signs Vital Signs - 24 hr 03/21/24 18:16 03/21/24 19:49 03/21/24 21:59 Temperature 36.5 C Temperature Source Temporal Artery Scan Pulse Rate 96 H Pulse Rate [Finger] 96 H 90 Pulse Rhythm [Finger] Pulse Strength [Finger] Respiratory Rate 22 20 18 Respiratory Effort / Characteristics Non-Labored Spontaneous Respiratory Depth Normal Respiratory Pattern Blood Pressure 148/80 H Blood Pressure [Left Arm] 122/81 204/95 H Blood Pressure Mean 102 Blood Pressure Mean [Left Arm] 94 131 Blood Pressure Position [Left Arm] Lying Pulse Oximetry 94 97 95 Oxygen Delivery Method Room Air Room Air Room Air Sepsis Recent Fever Within 48 Hours No Sepsis New/Unexplained Change in Mental Status N/A Sepsis Action Taken by Nursing No Action Required 03/21/24 21:59 03/21/24 23:00 Temperature Temperature Source Pulse Rate 92 H Pulse Rate [Finger] 104 H Pulse Rhythm [Finger] Regular Pulse Strength [Finger] Normal Respiratory Rate 20 Respiratory Effort / Characteristics Non-Labored Spontaneous Respiratory Depth Normal Respiratory Pattern Regular Blood Pressure Blood Pressure [Left Arm] 179/92 H Blood Pressure Mean Blood Pressure Mean [Left Arm] 121 Blood Pressure Position [Left Arm] Pulse Oximetry 96 Oxygen Delivery Method Room Air Sepsis Recent Fever Within 48 Hours Sepsis New/Unexplained Change in Mental Status Sepsis Action Taken by Custodial Medications Current Medication List: was personally reviewed by me Laboratory Data Attestation: I reviewed the patient's lab results. 03/22/24 05:23 03/22/24 10:53 Lab Results 03/21/24 03/21/24 Range/Units 18:37 19:00 WBC 10.57 (4.8-10.8) K/ul RBC 4.26 (4.20-5.40) M/uL Hgb 12.7 (12.0-16.0) g/dl Hct 37.1 (37.0-47.0) % MCV 87.1 (80.0-100.0) fL MCH 29.8 (25.0-34.0) pg MCHC 34.2 (32.0-36.0) g/dL RDW Std Deviation 41.0 (36.4-46.3) fL RDW Coeff of Gera 13.0 (11.5-14.5) % Plt Count 314 (130-400) K/uL MPV 8.6 L (9.4-12.4) fL Immature Gran % (Auto) 0.4 % Neut % (Auto) 68.1 % Lymph % (Auto) 21.4 % [place] % (Auto) 9.6 % Eos % (Auto) 0.1 % Baso % (Auto) 0.4 % Neut # (Auto) 7.20 H (1.40-6.50) K/uL Lymph # (Auto) 2.26 (1.20-3.40) K/uL [place] # (Auto) 1.02 H (0.11-0.59) K/uL Eos # (Auto) 0.01 (0.00-0.50) K/uL Baso # (Auto) 0.04 (0.00-0.20) K/uL Immature Gran # (Auto) 0.04 (0.01-0.20) K/uL Sodium 125 L (136-145) mmol/L Potassium 3.6 (3.5-5.1) mmol/L Chloride 86 L (98-107) mmol/L Carbon Dioxide 30 (21-32) mmol/L Anion Gap 9 (3-11) BUN 22 (6-23) mg/dl Creatinine 1.04 (0.6-1.2) mg/dl Est Cr Clr Drug Dosing Not Reportable eGFR 52.34 BUN/Creatinine Ratio 21.2 H (10-20) Glucose 148 H (70-99(Fasting)) mg/dl Calcium 10.0 (8.6-10.3) mg/dl Total Bilirubin 1.3 H (0.2-1.0) mg/dl AST 22 (13-39) U/L ALT 12 (7-52) U/L Alkaline Phosphatase 96 (34-104) U/L Total Protein 8.2 (6.0-8.3) gm/dl Albumin 4.7 (3.4-5.0) gm/dl Globulin 3.5 (2.5-4.0) gm/dl Albumin/Globulin Ratio 1.3 (0.9-2) Urine Color Yellow Urine Appearance Clear (Clear) Urine pH 7.5 (4.5-7.5) Ur Specific [place] 1.014 (1.000-1.030) Urine Protein Negative (Negative) Urine Glucose (UA) Negative (Negative) Urine Ketones Negative (Negative) Urine Blood 2+ H (Negative) Urine Nitrite Negative (Negative) Urine Bilirubin Negative (Negative) Urine Urobilinogen Negative (Negative) Ur Leukocyte Esterase Negative (Negative) Urine WBC (Auto) 0-5 (0-5) /hpf Urine RBC (Auto) >20 H (0-2) /hpf U Hyaline Cast (Auto) 0-2 (0-2) /lpf U Epithel Cells (Auto) 0-2 (0-2) /hpf Urine Bacteria (Auto) None Seen (None Seen) Urine Yeast Present A (None Prsent) Administered Medications Acetaminophen (Acetaminophen 325 Mg Tab) 650 mg PO Q4H PRN PRN Reason: Pain or Fever Stop: 04/21/24 01:26 Last Admin: 03/22/24 04:19 Dose: 650 mg Documented By: CR Atorvastatin Calcium (Atorvastatin 40 Mg Tab) 40 mg PO DAILY ELISA Stop: 04/21/24 08:59 Last Admin: 03/22/24 08:07 Dose: 40 mg Documented By: SUZETTE Baclofen (Baclofen 10 Mg Tab) 10 mg PO BID [facility] Stop: 04/21/24 08:59 Last Admin: 03/22/24 08:10 Dose: 10 mg Documented By: SUZETTE Calcium/Vitamin D (Calcium 600mg + Vit D 400 Iu Tab) 1 tab PO DAILY ELISA Stop: 04/21/24 08:59 Last Admin: 03/22/24 08:06 Dose: 1 tab Documented By: SUZETTE Cetirizine HCl (Cetirizine Hcl 10 Mg Tablet) 10 mg PO DAILY [facility] Stop: 04/21/24 08:59 Last Admin: 03/22/24 08:06 Dose: 10 mg Documented By: SUZETTE Cyanocobalamin (Cyanocobalamin (B-12) 500 Mcg Tablet) 1,000 mcg PO DAILY [facility] Stop: 04/21/24 08:59 Last Admin: 03/22/24 08:06 Dose: 1,000 mcg Documented By: SUZETTE Heparin Sodium (Porcine) (Heparin Sod 5,000 Unit/0.5 Ml Vial) 5,000 units SQ Q12 [facility] Stop: 04/21/24 08:59 Last Admin: 03/22/24 08:55 Dose: 5,000 units Documented By: DELMER Lisinopril (Lisinopril 10 Mg Tab) 10 mg PO QAM [facility] Stop: 04/21/24 08:59 Last Admin: 03/22/24 08:06 Dose: 10 mg Documented By: SUZETTE Ondansetron HCl (Ondansetron Inj 2 Mg/Ml 2 Ml Vial) 4 mg IV Q6H PRN PRN Reason: Nausea Stop: 04/21/24 01:26 Last Admin: 03/22/24 07:48 Dose: 4 mg Documented By: SUZETTE Pantoprazole Sodium (Pantoprazole 40 Mg Tab) 40 mg PO DAILY [facility] Stop: 04/21/24 08:59 Last Admin: 03/22/24 08:06 Dose: 40 mg Documented By: SUZETTE Tramadol HCl (Tramadol Hcl 50 Mg Tablet) 50 mg PO HS PRN PRN Reason: Severe Pain (Scale Score 7-10) Stop: 04/21/24 01:26 Last Admin: 03/22/24 08:05 Dose: 50 mg Documented By: SUZETTE Discontinued Medications Acetaminophen (Acetaminophen 500 Mg Tab) 1,000 mg PO NOW STA Stop: 03/21/24 22:31 Last Admin: 03/21/24 22:45 Dose: Not Given Documented By: SEAN Promethazine HCl (Phenergan) 6.25 mg in 50.25 mls @ 201 mls/hr IV NOW STA Stop: 03/21/24 22:21 Last Infusion: 03/21/24 22:58 Dose: Infused Documented By: Admin: 03/21/24 22:25 Dose: 201 mls/hr Documented By: SEAN Sodium Chloride (Nss) 1,000 mls @ 999 mls/hr IV .Q1H1M ONE Stop: 03/21/24 23:07 Last Infusion: 03/22/24 00:18 Dose: Infused Documented By: Admin: 03/21/24 22:25 Dose: 999 mls/hr Documented By: SEAN Sodium Chloride (Nss) 1,000 mls @ 50 mls/hr IV .Q20H ELISA Stop: 03/23/24 01:26 Last Infusion: 03/22/24 13:45 Dose: Infused Documented By: Admin: 03/22/24 02:23 Dose: 50 mls/hr Documented By: EDMUND Labetalol HCl (Labetalol Hcl Iv 5 Mg/Ml 20ml) 10 mg IV NOW STA Stop: 03/21/24 23:31 Last Admin: 03/21/24 23:42 Dose: 10 mg Documented By: AYLIN Morphine Sulfate (Morphine Sulfate 2 Mg/Ml [place]) 3 mg IV NOW STA Stop: 03/21/24 22:45 Last Admin: 03/21/24 22:49 Dose: 3 mg Documented By: SEAN Ondansetron HCl (Ondansetron Inj 2 Mg/Ml 2 Ml Vial) 4 mg IV NOW STA Stop: 03/21/24 22:08 Last Admin: 03/21/24 22:25 Dose: 4 mg Documented By: SEAN Potassium Chloride (Potassium Chloride Crtab 20 Meq Tabcr) 40 meq PO NOW STA Stop: 03/22/24 07:05 Last Admin: 03/22/24 08:05 Dose: 40 meq Documented By: SUZETTE Discharge Plan Visit Data Chief Complaint: Illness Stated Complaint: ILLNESS ED Provider: Ritesh Zaidi Discharge Problem: Weakness, Nausea, Acute hyponatremia Patient Disposition: Admitted As Inpatient Condition: Fair Discharge Instructions Interventions: ED Discharge Assessment Last Done: 03/22/24 00:47
[2024-03-22] MEDS ORDERED: LABETALOL HCL IV 5 MG/ML 20ML IV PRN (01:27)
[2024-03-22] MEDS ORDERED: NITROGLYCERIN SL 0.4 MG/TAB TAB SL PRN (01:27)
[2024-03-22] MEDS: SODIUM CHLORIDE 0.9% 1,000 ML IV SCH (02:23)
[2024-03-22] MEDS: ACETAMINOPHEN 325 MG TAB PO PRN (04:19)
[2024-03-22 05:46] LABS: Basophils # (auto) 0.03 K/uL (0.00-0.20); Basophils % (auto) 0.4 %; Eosinophils # (auto) 0.07 K/uL (0.00-0.50); Eosinophils % (auto) 0.8 %; Hematocrit (blood only) 30.8 % (37.0-47.0); Hemoglobin 10.4 g/dl (12.0-16.0); Immature Granulocytes # (auto) 0.03 K/uL (0.01-0.20); Immature Granulocytes % (auto) 0.4 %; Lymphocytes % (auto) 22.4 %; Mean Corpuscular Hemoglobin 29.5 pg (25.0-34.0); Mean Corpuscular Hgb Conc 33.8 g/dL (32.0-36.0); Mean Corpuscular Volume 87.5 fL (80.0-100.0); Mean Platelet Volume 8.6 fL (9.4-12.4); Monocytes % (auto) 11.8 %; Neutrophils # (auto) 5.46 K/uL (1.40-6.50); Neutrophils % (auto) 64.2 %; Platelet Count 250 K/uL (130-400); RDW Coefficient of Variation 13.2 % (11.5-14.5); RDW Standard Deviation 41.5 fL (36.4-46.3); Red Blood Count 3.52 M/uL (4.20-5.40); White Blood Count 8.49 K/ul (4.8-10.8)
--- OUTSIDE RECORDS SUMMARY | 2024-03-22 05:51 | External Medical Summary | Summary of Care ---
Author Name Unknown Organization [facility] Address [address] [place] [address] Phone [phone] Care Team Providers Care Fig Caprifier Name Role Phone Annmarie Barney MD Primary Care Provider [phone] Reason for Visit * Reason Onset Date Comments medication change 03/13/2024 Advice 03/13/2024 Encounter Details Date Type Department Care Team (Late st Contact Info) Description 03/13/2024 Telephone [facility] [address] C[address] [place] [address] Annmarie Barney MD [address] [place] [id number] medication change; Advice Allergies Active Allergy Reactions Criticality Noted Date Comments Nitrofurantoin Rash High 08/24/2021 Sulfa Antibiotics 08/14/2021 Sulfamethoxazole Rash Medium 10/23/2016 Trimethoprim Rash High 08/24/2021 documented as of this encounter (statuses as of 03/14/2024) Medications Cholecalciferol 25 MCG (1000 UT) Oral Capsule daily Active Methenamine Hippurate 1 GM Oral TabletIndications: Recurrent UTI Take 1 Tablet by mouth in the morning and 1 Tablet before bedtime. 1 Tab 1 Active Famotidine 20 MG Oral Tablet (Pepcid)Indication s:Heart burn Take by mouth 1 Tablet 2 times a day as needed for Heartburn. 90 Tablet 3 2 Active QC Stool Softener 100 MG Oral Capsule (Docusate Sodium) TAKE ONE CAPSULE BY MOUTH 2 TIMES A DAY FOR STOOL SOFTENER 30 Capsule 3 3 Active Polyethylene Glycol 3350 17 GM/SCOOP Oral Powder (Miralax)Indicatio ns:Constipation, unspecified constipation type Mix 1 cap full in 8 ounces of water or juice or gatorade and drink daily for 10 days. Repeat as needed. 255 g 2 3 Active Potassium Chloride ER 20 MEQ Oral Tablet Extended Release 20 Milliequivalen t. 3 Active Calcium-Vitamin D 600-5 MG-MCG Oral TabletIndications: Osteoporosis with symptom management only One Daily 30 Tablet 11 3 Active Simethicone 125 MG Oral TabletIndications: Abdominal gas pain Take 1 tab after meals and at bedtime as needed for intestinal gas 120 Tablet 5 4 Active Omeprazole 20 MG Oral Capsule Delayed Release (PriLOSEC)Indicati ons:Gastroesophage al reflux disease TAKE 1 CAPSULE BY MOUTH EVERY DAY 30 MINUTES BEFORE THE FIRST MEAL OF THE DAY 90 Capsule 1 4 Active Triamterene-HCTZ 37.5-25 MG Oral Tablet ((Maxzide-25))Mehreen cations:HTN, goal below 150/90 TAKE 1 TABLET BY MOUTH EVERY DAY FOR BLOOD PRESSURE AND FLUID 90 Tablet 1 4 Active Vitamin B-12 1000 MCG Oral Tablet (Cyanocobalamin)In dications:Pernicio us anemia TAKE 1 TABLET BY MOUTH EVERY DAY 34 Tablet 11 4 Active Atorvastatin Calcium 40 MG Oral Tablet (Lipitor)Indicatio ns:Dyslipidemia, goal LDL below 100 TAKE 1 TABLET BY MOUTH EVERY DAY 90 Tablet 1 4 Active Cetirizine HCl 10 MG Oral Tablet (ZyrTEC) Take 1 Tablet by mouth in the morning. 90 Tablet 3 4 Active traMADol HCl 50 MG Oral Tablet (Ultram) Take 1 Tablet by mouth at bedtime as needed for Pain, Severe. 30 Tablet 5 Active Ondansetron 4 MG Oral Tablet Disintegrating (Zofran)Indication s:Nausea Place 1 Tablet on tongue every 8 hours as needed for Nausea. dissolve on tongue. 20 Tablet 5 Active Baclofen 10 MG Oral Tablet (Lioresal) Take 1 Tablet by mouth in the morning and 1 Tablet before bedtime. 60 Tablet 2 Active documented as of this encounter (statuses as of 03/14/2024) Active Problems Problem Noted Date Diagnosed Date Chronic sinusitis 01/25/2024 Osteoporosis with symptom management only 2022 Gastro-esophageal reflux disease without esophag itis 09/06/2020 Rheumatoid arthritis involvi ng multiple sites with positive rheumatoid factor 09/06/2020 Hypertensive kidney disease with stage 3a chronic kidney disease 02/21/2020 Actinic keratosis 09/01/2018 Overview (09/01/2018): Efudex (spot tx on face 08/26) Hx of nonmelanoma skin cancer 10/18/2017 Overview (10/18/2017): Shaan (Jeremy oneil) HTN, goal below 150/90 05/25/2016 Dyslipidemia, goal LDL below 100 06/30/2010 Hearing loss 07/26/2009 CARDIAC MURMURS NEC 06/06/1999 documented as of this encounter (statuses as of 03/14/2024) Resolved Problems Problem Noted Date Diagnosed Date Resolved Date Cystitis 11/17/2020 08/19/2022 Recurrent UTI 11/17/2020 08/19/2022 Chronic kidney disease, stage 3a 06/18/2020 02/27/2021 Overview (02/27/2021): Per CKD protocol Duplicate Stage 3a chronic kidney disease 12/18/2019 03/21/2020 Overview: Per CKD protocol - Per CKD protocol Kidney disease, chronic, sta ge III (GFR 30-59 ml/min) 10/17/2019 12/21/2019 Overview: Per CKD protocol Prediabetes 01/16/2019 09/24/2020 Overview: Per Prediabetes protocol GERD (gastroesophageal reflux disease) 06/22/2018 06/10/2019 Long-term use of immunosuppressant medication 06/01/19 18 09/11/2022 Osteoporosis 10/19/2016 06/10/2019 History of rheumatoid arthritis 02/19/2016 06/18/2021 High risk for fracture due t o osteoporosis by DEXA scan 11/06/2014 10/19/2016 Microscopic hematuria 02/14/20142016 ADVANCE DIRECTIVE INFORMATION 10/16/2004 12/13/2023 Overview (10/16/2004): No, Advance Directive brochure given to patient at prior appointment. BACKACHE NOS 10/02/2003 05/31/2017 Anxiety state 05/16/2002 05/31/2017 Pernicious anemia 04/02/2000 07/07/2018 High risk for fracture due t o osteoporosis by DEXA scan 10/19/2016 Arthritis, rheumatoid 2016 Dyslipidemia, goal to be determined 06/30/2010 documented as of this encounter (statuses as of 03/14/2024) Immunizations Name Administration Dates Next Due COVID-19 mRNA, LNP-s, No Pre serve, 2-Dose Series (Databox) 12/26/2020,05/29/2020,05/08/2020 COVID-19, MRNA-LNP, 24-25, P R, 30MCG/0.3ML, IM, 12YRS AND ABOVE (Databox-Comirnat[employer]s) 12/01/2023 Pneumococcal Conjugate Vacc, 13 Valent (Prevnar) 08/20/2014 Pneumococcal Polysaccharide PPV23 (Pneumovax) 01/17/2007,11/04/2001 Season Influenza, Quad, PF, Adjuvanted, 65+ Yrs, IM (FLUAD) 10/10/2019 Seasonal Influenza Vac., MDV , IM, 0.5 mL (Fluzone) 10/19/2016,10/23/2014,10/23/2014,10/09,10/18/2012,10/10/2011,11/07/19 11,12/16/2009,11/07/2008,12/06/2007,1 02/08/2006,11/25/2005,11/27/2004,12/12,12/23/2000,01/12/2000 Seasonal Influenza Virus Vac cine, Unspecified Formulation 10/10/2019,10/19/2017,10/19/2016,10/09,10/23/2014,10/16/2013,12/17/19 10,11/07/2008,12/06/2007,12/09/2006,1 ,11/27/2004,12/12/2002,12/23,01/12/2000 Seasonal Influenza, High Dos e, Trivalent, PF, IM (Fluzone HD) 11/17/2023 Seasonal Influenza, PF, 6 M & above, IM , (FluLaval or Fluzone) 10/10/2019 Seasonal Influenza, Quadriva lent Hd (Fluzone Hd) 10/15/2020 Seasonal Influenza, Quadriva lent, No Preserve, IM 10/19/2017,10/28/2015 Seasonal Influenza, Trivalen t, Adjuvanted, 65+ YRS, PF, (Fluad) 10/26/2022,10/14/2018,10/19/2017 TD, Preservative Free 05/28/2020,06/15/200708/2017 TDAP (age 10 and older)(Boostrix) 10/26/2022, documented as of this encounter Social History Tobacco Use Types Packs/Day Years Used Date Smoking Tobacco: Never Passive Smoke Exposure: Never Smokeless Tobacco: Never Alcohol Use Standard Drinks/Week Comments No 0 (1 standard drink = 0.6 oz pur e alcohol) PHQ-2 Answer Date Recorded PHQ Adult Total Score 0 12/16/2023 Hunger Vital Sign Answer Date Recorded Within the past 12 months, y ou worried that your food would run out before you got the money to buy more. Never true 12/16/19 24 Within the past 12 months, t he food you bought just didn't last and you didn't have money to get more. Never true 12/16/2023 Childcare Answer Date Recorded Do you feel overwhelmed with taking care of a child, family member or friend? No 12/16/2023 Does your family need help f inding childcare? (Household - for ages 0-17 years) Not on file 12/16/2023 Clothing Answer Date Recorded Have you been unable to get clothing when it was really needed? No 12/16/2023 Is your family able to get c lothes or diapers when needed? (Household - for ages 0-17 years) Not on file 12/16/2023 Personal Safety Answer Date Recorded Do you feel unsafe or have concerns for your saf ety? No 12/16/2023 Do you have concerns for you r family's safety? (Household - for ages 0-17 years) Not on file 12/16/2023 Utilities Answer Date Recorded Do you have trouble paying y our heating, water, or electric bill? No 12/16/2023 Is your family able to pay t he heat, water, or electric bill? (Household - for ages 0-17 years) Not on file 12/16/2023 Does your family have access to good internet? (Household - for ages 0-17 years) Not on file 12/16/2023 Employment Status Answer Date Recorded Are you unemployed or without regular income? No 12/16/2023 Does the household have a re lar source of income? (Household - for ages 0-17 years) Not on file 12/16/2023 Social Connections Answer Date Recorded How often do you feel lonely or isolated from th ose around you? Never 12/16/2023 Financial Resource Strain Answer Date R ecorded Do you have any trouble payi ng for your medications, or do you think you might in the future? No 12/16/2023 Does your family have troubl e paying for medicine? (Household - for ages 0-17 years) Not on file 12/16/2023 Transportation Needs Answer Date Record ed Do you have trouble getting a ride to medical visits or work? (Adult - for ages 18 years and over) Not on file 12/16/2023 Does your family have a hard time getting a ride to doctors visits? (Household - for ages 0-17 years) Not on file 12/16/2023 Has lack of transportation k ept you from medical appointments, meetings, work, or from getting things needed for daily living? Check all that apply. No 12/16/2023 Do you (or your family) have trouble finding or paying for a ride (transportation)? (Household - for ages 0-17 years) Not on file 12/16/2023 Housing Stability Answer Date Recorded Do you currently live in a s helter or have no steady place to sleep at night? No 12/16/2023 Do you think you are at risk of becoming homeless? (Adult - for ages 18 years and over) Not on file 12/16/2023 Does your family worry about paying for your home or becoming homeless? (Household - for ages 0-17 years) Not on file 1 02/14/2023 Are you homeless or worried that you might be in the future? No 12/16/2023 Are you (or your family) alberto eless or worried that you might be in the future? (Household - for ages 0-17 years) Not on file Food Insecurity Answer Date Recorded Do you need food for this week? No 12/16/2023 Are you able to get enough f ood for your family? (Household - for ages 0-17 years) Not on file 12/16/2023 Does your family need food t his week? (Household - for ages 0-17 years) Not on file 12/16/2023 Do you always have enough fo od for your family? (Household - for ages 0-17 years) Not on file 12/16/2023 Comments No Sex and Gender Information Value Date Recorded Sex Assigned at Female 06/10/2023 9:47 AM EDT Legal Sex Female 7:01 AM EST Gender Identity Female 06/10/2023 9:47 AM EDT Sexual Orientation Straight 02/28/2019 1: 29 PM EST documented as of this encounter Miscellaneous Notes * Telephone Encounter - Annmarie Barney MD - 03/14/2024 8:13 AM EST Saw pt twice only for sinus problem I gave her opioid pain med temporarily but if she is requesting more and regular refill, she will need to give us urine sample, sign on DENA and also have to document on office note She needs an appointment at this time * Telephone Encounter - Treva Arellano OSA - 03/13/2024 4:51 PM EST Last ofv visit 01/25/24 with PCP Per daughter, akiko de souza, patient is in a lot of pain, can hardly walk Will not be able to come to an appt. Declined email for video appt Requesting callback from nurse regarding pain Thank you * Telephone Encounter - Annmarie Barney MD - 03/13/2024 8:26 AM EST Please advise pt to schedule to see me or provider to discuss about it * Telephone Encounter - Delia Parmar [facility] - 03/13/2024 8:16 AM EST Patient's daughter calling as Emely is experiencing a lot of pain during the day. Asking for anincrease in the tramadol and to possibly take an additional tablet during the day. Please advise. Delia Sanchez [facility] Clinical Pharmacist [facility] ([facility]) [phone] * Telephone Encounter - Chyna Elkins train braker - 03/13/2024 8:12 AM EST Patient's daughter calling in because her mother is asking for the tramadol prescription to be changed. She's experiencing pain during the day and would like to take it more than just at night. Transferred to pharmacist. Chyna Cuenca Curing Oven Attendant II [facility] 03/13/2024 8:13 AM documented in this encounter Plan of Treatment Upcoming Encounters Date Type Department Care Team (Late st Contact Info) Description 06/15/2024 10:00 AM EDT Office Visit Rhe[facility] [address] [place] [phone] Jevon Kaur PA-C [address] [facility] [place] [address] 07/26/2024 10:20 AM EDT Office Visit [facility] [place] [address] [address] [place] [address] [phone] Sid Roche MD [address] [place] [address] Health Maintenance Due Date Last Done Comments Adult Wellness Visit 07/09/2003 Colonoscopy 08/26/2016 08/27/2011, 08/08, 09/18/2005 DXA Scan 09/17/2021 09/18/2019, 04/10, 11/16/2014, Additional history exists *BISPHONATE OR OTHER ACCEPTABLE MEDICATION NEEDED FOR OSTEOPOROSIS (REFER TO SMARTSET #1146) 01/09/2024 COVID-19 Vaccine ( season) 2024 12/01/2023, 12/07/2022, 11/13/2021, Additional history exists CKD HGB USE SMARTSET 77222 03/16/202403/16, 09/11/2022, 09/11/2022, Additional history exists CKD PHOS USE SMARTSET 67280 12/02/202411/09, 06/01/2022, 04/30/2021, Additional history exists Albumin/Creatinine Ratio 12/06/2024 024, 04/09/2022, 05/12/2021, Additional history exists Depression Screening 12/15/2024 12/16/2023 DTap/Tdap Vaccines (4 - Td or Tdap) 10/26/2032 10/26/2022, 05/28/2020, 07/21/2012, Additional history exists RETIRED - COLONOSCOPY-EVERY 5 YRS AGES 18-100 Discontinued 08/27/2011, 08/27/2011, 09/18/2005 Pneumococcal Vaccine: 50+ Years Completed 08/20/2014, 01/17/2007, 11/04/2001 Influenza Vaccine (FLU shot) Completed 11/17/2023, 11/17/2023, 10/26/2022, Additional history exists VITAMIN D LEVEL ONCE IN A LIFETIME-USE SMARTSET# 45609 Completed 12/03/2023, 06/15/2023, 08/27/2015, Additional history exists HPV (Gardasil) Vaccine Aged Out No lo nger eligible based on patient's age to complete this topic Hepatitis B Vaccine Aged Out No longe r eligible based on patient's age to complete this topic MENINGOCOCCAL (MENACTRA/MENVEO) Aged Out No longer eligible based on patient's age to complete this topic Zoster Vaccines Discontinued documented as of this encounter Medical Devices Implanted Type Area Supervisor [employer] Device Identifier Shelf Expiration Date Model / Serial / Lot Lens Intraoc 23.5 - [id number] - [id number] Implanted:Qty: 1 on 08/03/2019 by Pranav Kwok MD at OR [facility] Left: Eye BAUSCH & LOMB 01/08/2024 [id number] / [id number] / [id number] Lens Intraoc 23.5 - [id number] - [id number] Implanted:Qty: 1 on 08/15/2019 by Pranav Kwok MD at OR [facility] Right: Eye BAUSCH & LOMB 08/08/2023 [id number] / [id number] / [id number] documented as of this encounter Care Teams Fig Caprifier Relationship Specialty Start Date End Date Annmarie Barney MD [facility] [place] [id number] PCP - General Internal Medicine 02/15/24 documented as of this encounter
--- OUTSIDE RECORDS SUMMARY | 2024-03-22 05:51 | External Medical Summary | Summary of Care ---
Author Name Unknown Organization [facility] Address [address] [place] [address] Phone [phone] Care Team Providers Care Furnace Fitter Name Role Phone Annmarie Barney MD Primary Care Provider [phone] Reason for Visit * Reason Onset Date Comments medication change 03/13/2024 Advice 03/13/2024 Encounter Details Date Type Department Care Team (Late st Contact Info) Description 03/13/2024 Telephone [facility] [address] [place] [address] Annmarie Barney MD [address] [place] [id number] medication change; Advice Allergies Active Allergy Reactions [...] mRNA, LNP-s, No Pre serve, 2-Dose Series ([employer]) 12/26/2020,05/29/2020,05/08/2020 COVID-19, MRNA-LNP, 24-25, P R, 30MCG/0.3ML, IM, 12YRS AND ABOVE ([employer]-ComirnatBushido) 12/01/2023 Pneumococcal Conjugate Vacc, 13 Valent (Prevnar) [...] encounter Miscellaneous Notes * Telephone Encounter - Palmira Vences LPN - 03/14/2024 9:23 AM EST Spoke with Patient's daughter. Reviewed Dr. Barney's message with daughter- aware PCP will not prescribe medication until seen in office, declines to schedule appointment. * Telephone Encounter - Treasure Sims OSA - 03/14/2024 9:17 AM EST PTS daughter Akiko calling, read her drs notes. 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 Transferring to nurselópez * Telephone Encounter - Annmarie Barney MD [...] it * Telephone Encounter - Delia Parmar RPh - 03/13/2024 8:16 AM EST Patient's daughter calling as Emely is experiencing a lot of pain during the day. Asking for anincrease in the tramadol and to possibly take an additional tablet during the day. Please advise. Thanks, Delia Parmar [facility] Clinical Pharmacist [facility] ([facility]) [phone] * Telephone Encounter - Chyna Elkins, pile driving superintendent - 03/13/2024 8:12 AM EST Patient's daughter calling in because her mother is asking for the tramadol prescription to be changed. She's experiencing pain during the day and would like to take it more than just at night. Transferred to pharmacist. Chyna Cuenca Product Development Technician II [facility] 03/13/2024 8:13 AM documented in this encounter Plan of Treatment Upcoming Encounters Date Type Department Care Team (Late st Contact Info) Description 06/15/2024 10:00 AM EDT Office Visit Rheumatology [facility] [address] [place] [phone] Jevon Kaur PA-C [address] [facility] [place] [address] 07/26/2024 10:20 AM EDT Office Visit [facility] [address] [place] [phone] Sid Roche MD [address] [place] [address] Health Maintenance Due Date Last Done Comments Adult Wellness Visit 07/09/2003 Colonoscopy 08/26/2016 08/27/2011, 08/08, 09/18/2005 DXA Scan 09/17/2021 09/18/2019, 04/10, 11/16/2014, Additional history exists *BISPHONATE OR OTHER ACCEPTABLE MEDICATION NEEDED FOR OSTEOPOROSIS (REFER TO SMARTSET #1146) 01/09/2024 COVID-19 Vaccine ( season) 2024 12/01/2023, 12/07/2022, 11/13/2021, Additional history exists CKD HGB USE SMARTSET 13346 03/16/202403/16, 09/11/2022, 09/11/2022, Additional history exists CKD PHOS USE SMARTSET 69227 12/02/202411/09, 06/01/2022, 04/30/2021, Additional history exists Albumin/Creatinine [...] D LEVEL ONCE IN A LIFETIME-USE SMARTSET# 17201 Completed 12/03/2023, 06/15/2023, 08/27/2015, Additional history exists [...] this encounter Medical Devices Implanted Type Area Internet Marketing Executive Device Identifier Shelf Expiration Date Model / Serial / Lot Lens Intraoc 23.5 - [id number] - [id number] Implanted:Qty: 1 on 08/03/2019 by Pranav Kwok MD at OR [facility] Left: Eye BAUSCH & LOMB 01/08/2024 [id number] / [id number] / [id number] Lens Intraoc 23.5 - [id number] - [id number] Implanted:Qty: 1 on 08/15/2019 by Pranav Kwok MD at OR [facility] Right: Eye BAUSCH & LOMB 08/08/2023 [id number] / [id number] / [id number] documented as of this encounter Care Teams Furnace Fitter Relationship Specialty Start Date End Date Annmarie Barney MD [address] [place] [address] PCP - General Internal Medicine 02/15/24 documented as of this encounter
--- OUTSIDE RECORDS SUMMARY | 2024-03-22 05:51 | External Medical Summary | Summary of Care ---
Author Name Unknown Organization [facility] Address [address] [place] [address] Phone [phone] Care Team Providers Care Barker Peeler Name Role Phone Annmarie Barney MD Primary Care Provider [phone] Reason for Visit * Reason Onset Date Comments medication change 03/13/2024 Encounter Details Date Type Department Care Team (Late st Contact Info) Description 03/13/[address] [facility] [address] [place] [address] Annmarie Barney MD [address] [place] [address] medication change Allergies Active Allergy Reactions Criticality Noted Date Comments Nitrofurantoin Rash High 08/24/2021 Sulfa Antibiotics 08/14/2021 Sulfamethoxazole Rash Medium 10/23/2016 Trimethoprim Rash High 08/24/2021 documented as of this encounter (statuses as of 03/13/2024) Medications Cholecalciferol 25 MCG (1000 UT) Oral [...] as of this encounter (statuses as of 03/13/2024) Active Problems Problem Noted Date Diagnosed Date [...] as of this encounter (statuses as of 03/13/2024) Resolved Problems Problem Noted Date Diagnosed Date [...] as of this encounter (statuses as of 03/13/2024) Immunizations Name Administration Dates Next Due COVID-19 mRNA, LNP-s, No Pre serve, 2-Dose Series ([email or web address]) 12/26/2020,05/29/2020,05/08/2020 COVID-19, MRNA-LNP, 24-25, P R, 30MCG/0.3ML, IM, 12YRS AND ABOVE (Pfizer-Comirnaty) 12/01/2023 Pneumococcal Conjugate Vacc, 13 Valent (Prevnar) 08/20/2014 Pneumococcal Polysaccharide PPV23 (Pneumovax) 01/17/2007 Season Influenza, Quad, PF, Adjuvanted, 65+ Yrs, IM (FLUAD) 10/10/2019 Seasonal Influenza Vac., MDV , IM, 0.5 mL (Fluzone) 10/19/2016,10/23/2014,10/23/2014,10/09,10/18/2012,10/10/2011,11/07/19 11,12/16/2009,11/07/2008,12/06/2007,1 02/08/2006,11/25/2005 Seasonal Influenza Virus Vac cine, Unspecified Formulation [...] 12/16/2023 Does the household have a re gular source of income? (Household - for ages [...] about it * Telephone Encounter - Delia Parmra RPh - 03/13/2024 8:16 AM EST Patient's daughter calling as Emely is experiencing a lot of pain during the day. Asking for anincrease in the tramadol and to possibly take an additional tablet during the day. Please advise. Delia Sanchez RPh Clinical Pharmacist [facility] ([facility]) [phone] * Telephone Encounter - Chyna Elkins, executive director contract shop - 03/13/2024 8:12 AM EST Patient's daughter calling in because her mother is asking for the tramadol prescription to be changed. She's experiencing pain during the day and would like to take it more than just at night. Transferred to pharmacist. Chyna Cuenca Burn Out Scarfing Operator II [facility] 03/13/2024 8:13 AM documented in this encounter Plan of Treatment Upcoming Encounters Date Type Department Care Team (Late st Contact Info) Description 06/15/2024 10:00 AM EDT Office Visit Rheumatology [facility] [address] [place] [phone] Jevon Kaur PA-C [address] [facility] [place] [address] 07/26/2024 10:20 AM EDT Office [facility] [place]ori [address] [place] [phone] Sid Roche MD [address] [place] [address] Health Maintenance Due Date Last Done Comments Adult Wellness Visit 07/09/2003 Colonoscopy 08/26/2016 08/27/2011, 08/08, 09/18/2005 DXA Scan 09/17/2021 09/18/2019, 04/10, 11/16/2014, Additional history exists *BISPHONATE OR OTHER ACCEPTABLE MEDICATION NEEDED FOR OSTEOPOROSIS (REFER TO SMARTSET #1146) 01/09/2024 COVID-19 Vaccine ( season) 2024 12/01/2023, 12/07/2022, 11/13/2021, Additional history exists CKD HGB USE SMARTSET 43782 03/16/202403/16, 09/11/2022, 09/11/2022, Additional history exists CKD PHOS USE SMARTSET 90211 12/02/202411/09, 06/01/2022, 04/30/2021, Additional history exists Albumin/Creatinine [...] D LEVEL ONCE IN A LIFETIME-USE SMARTSET# 23122 Completed 12/03/2023, 06/15/2023, 08/27/2015, Additional history exists [...] this encounter Medical Devices Implanted Type Area Funeral Director/Embalmer Device Identifier Shelf Expiration Date Model / Serial / Lot Lens Intraoc 23.5 - [id number] - [id number] Implanted:Qty: 1 on 08/03/2019 by Pranav Kwok MD at OR [facility] Left: Eye BAUSCH & LOMB 01/08/2024 [id number] / [id number] / [id number] Lens Intraoc 23.5 - [id number] - [id number] Implanted:Qty: 1 on 08/15/2019 by Pranav Kwok MD at OR [facility] Right: Eye BAUSCH & LOMB 08/08/2023 [id number] / [id number] / [id number] documented as of this encounter Care Teams Barker Peeler Relationship Specialty Start Date End Date Annmarie Barney MD [address] [place] [address] PCP - General Internal Medicine 02/15/24 documented as of this encounter
--- OUTSIDE RECORDS SUMMARY | 2024-03-22 05:51 | External Medical Summary | Summary of Care ---
Author Name Unknown Organization [facility] Address [address] [place] [address] Phone [phone] Care Team Providers Care Wind Instrument Repairer Name Role Phone Annmarie Barney MD Primary Care Provider [phone] Reason for Visit * Reason Onset Date Comments Med Request 03/20/2024 Encounter Details Date Type Department Care Team (Late st Contact Info) Description 03/20/2024 Telephone [facility] [address] [place] [address] Sid Roche MD [address] [place] [address] Med Request Allergies Active Allergy Reactions Criticality Noted Date Comments Nitrofurantoin Rash High 08/24/2021 Sulfa Antibiotics 08/14/2021 Sulfamethoxazole Rash Medium 10/23/2016 Trimethoprim Rash High 08/24/2021 documented as of this encounter (statuses as of 03/20/2024) Medications Cholecalciferol 25 MCG (1000 UT) Oral [...] as of this encounter (statuses as of 03/20/2024) Active Problems Problem Noted Date Diagnosed Date [...] as of this encounter (statuses as of 03/20/2024) Resolved Problems Problem Noted Date Diagnosed Date [...] as of this encounter (statuses as of 03/20/2024) Immunizations Name Administration Dates Next Due COVID-19 mRNA, LNP-s, No Pre serve, 2-Dose Series ([employer]) 12/26/2020,05/29/2020,05/08/2020 COVID-19, MRNA-LNP, 24-25, P R, 30MCG/0.3ML, IM, 12YRS AND ABOVE ([employer]-Comirnaty) 12/01/2023 Pneumococcal Conjugate Vacc, 13 Valent (Prevnar) [...] No 12/16/2023 Does the household have a [facility] source of income? (Household - for ages [...] ages 0-17 years) Not on file 12/16/2023 Food Insecurity Answer Date Recorded Within the past 12 months, y ou worried that your food would run out before you got the money to buy more. Never true 12/16/19 24 Within the past 12 months, t he food you bought just didn't last and you didn't have money to get more. Never true 12/16/2023 Do you need food for this week? No 12/16/2023 Comments No Sex and Gender Information Value Date Recorded Sex Assigned at Female 06/10/2023 9:47 AM EDT Legal Sex Female 7:01 AM EST Gender Identity Female 06/10/2023 9:47 AM EDT Sexual Orientation Straight 02/28/2019 1: 29 PM EST documented as of this encounter Miscellaneous Notes * Telephone Encounter - Moreno Ferrara OSA - 03/20/2024 2:39 PM EST Relayed message to pts daughter Annelise * Telephone Encounter - Annmarie Barney MD - 03/20/2024 11:42 AM EST Cipro is antibiotic I can't refill at this time. If pt has suspected UTI or any infection, pt should see a provider at first And tramadol was given temporarily for her pain, taken at night only She she had taken more than that, as discussed on other encounter, pt will need to see use at office visit to discuss about opioid pain med use Currently pharmacy would not refill tramadol for early refill without any documentation * Telephone Encounter - Breann Lowe OSA - 03/20/2024 9:07 AM EST Pt daughter called and stated that she would like for the doctor to order Tramadol 50 mg for pain * Telephone Encounter - Tenisha Barrientos PHARM Tech - 03/20/2024 8:04 AM EST Pts daughter requesting refills for Ciprofloxacin HCl 250 MG Oral Tablet (Cipro). Upon chart review, medication is listed as as of 08/30/2023 . Please advise if you wish to continue this therapy for the patient and send new prescription to [id number] [address] [place] [address] Pts daughter requesting greater than 7 day supply, if possible. Thank you, Tenisha Barrientos, Check Weigher Check Weigher I [facility] ([facility]) 03/20/2024,8:04 AM documented in this encounter Plan of Treatment Upcoming Encounters Date Type Department Care Team (Late st Contact Info) Description 06/15/2024 10:00 AM EDT Office Visit Rheumatology [facility] [address] [place] [phone] Jevon Kaur PA-C [facility] [facility] [address] 07/26/2024 10:20 AM EDT Office Visit [facility] Aura Ferraro [address] [phone] Sid Roche MD [address] [place] [address] Health Maintenance Due Date Last Done Comments Adult Wellness Visit 07/09/2003 Colonoscopy 08/26/2016 08/27/2011, 08/08, 09/18/2005 DXA Scan 09/17/2021 09/18/2019, 04/10, 11/16/2014, Additional history exists *BISPHONATE OR OTHER ACCEPTABLE MEDICATION NEEDED FOR OSTEOPOROSIS (REFER TO SMARTSET #1146) 01/09/2024 COVID-19 Vaccine ( season) 2024 12/01/2023, 12/07/2022, 11/13/2021, Additional history exists CKD HGB USE SMARTSET 99760 03/16/202403/16, 09/11/2022, 09/11/2022, Additional history exists CKD PHOS USE SMARTSET 33714 12/02/202411/09, 06/01/2022, 04/30/2021, Additional history exists Albumin/Creatinine [...] D LEVEL ONCE IN A LIFETIME-USE SMARTSET# 35730 Completed 12/03/2023, 06/15/2023, 08/27/2015, Additional history exists [...] this encounter Medical Devices Implanted Type Area Printing Supervisor Device Identifier Shelf Expiration Date Model / Serial / Lot Lens Intraoc 23.5 - [id number] - [id number] Implanted:Qty: 1 on 08/03/2019 by Pranav Kwok MD at OR [facility] Left: Eye BAUSCH & LOMB 01/08/2024 [id number] / [id number] / [id number] Lens Intraoc 23.5 - [id number] - [id number] Implanted:Qty: 1 on 08/15/2019 by Pranav Kwok MD at OR [facility] Right: Eye BAUSCH & LOMB 08/08/2023 [id number] / [id number] / [id number] documented as of this encounter Care Teams Wind Instrument Repairer Relationship Specialty Start Date End Date Annmarie Barney MD [address] [place] [address] PCP - General Internal Medicine 02/15/24 documented as of this encounter
--- OUTSIDE RECORDS SUMMARY | 2024-03-22 05:51 | External Medical Summary | Summary of Care ---
Author Name Unknown Organization [facility] Address [address] [place] [address] Phone [phone] Care Team Providers Care Cattle Brander Name Role Phone Annmarie Barney MD Primary Care Provider [phone] Reason for Visit * Reason Onset Date Comments medication change 03/13/2024 Advice 03/13/2024 Encounter Details Date Type Department Care Team (Late st Contact Info) Description 03/13/2024 Telephone [facility] [address] [place] [address] Annmarie Barney MD [address] [place] [phone] medication change; Advice Allergies Active Allergy Reactions [...] mRNA, LNP-s, No Pre serve, 2-Dose Series ([employer]) 12/26/2020,05/29/2020,05/08/2020 COVID-19, MRNA-LNP, 24-25, P R, 30MCG/0.3ML, IM, 12YRS AND ABOVE ([employer]-ComirnatAllegorithmic) 12/01/2023 Pneumococcal Conjugate Vacc, 13 Valent (Prevnar) [...] the day. Please advise. Thanks, Delia Parmar [facility] Clinical Pharmacist [facility] Pharm[facility] Services ([facility]) [phone] * Telephone Encounter - Chyna Elkins, credit risk specialist - 03/13/2024 8:12 AM EST Patient's daughter calling in because her mother is asking for the tramadol prescription to be changed. She's experiencing pain during the day and would like to take it more than just at night. Transferred to pharmacist. Chyna Cuenca Decorating Machine Tender II [facility] 03/13/2024 8:13 AM documented in this encounter Plan of Treatment Upcoming Encounters Date Type Department Care Team (Late st Contact Info) Description 06/15/2024 10:00 AM EDT Office Visit Rheumatology [facility] [address] [place] [phone] Jevon Kaur PA-C 0[address] [facility] [place] [address] 07/26/2024 10:20 AM EDT Office Visit [facility] [address] [place] [phone] Sid Roche MD [address] [place] [address] Health Maintenance Due Date Last Done Comments Adult Wellness Visit 07/09/2003 Colonoscopy 08/26/2016 08/27/2011, 08/08, 09/18/2005 DXA Scan 09/17/2021 09/18/2019, 04/10, 11/16/2014, Additional history exists *BISPHONATE OR OTHER ACCEPTABLE MEDICATION NEEDED FOR OSTEOPOROSIS (REFER TO SMARTSET #1146) 01/09/2024 COVID-19 Vaccine ( season) 2024 12/01/2023, 12/07/2022, 11/13/2021, Additional history exists CKD HGB USE SMARTSET 37569 03/16/202403/16, 09/11/2022, 09/11/2022, Additional history exists CKD PHOS USE SMARTSET 31209 12/02/202411/09, 06/01/2022, 04/30/2021, Additional history exists Albumin/Creatinine [...] D LEVEL ONCE IN A LIFETIME-USE SMARTSET# 83463 Completed 12/03/2023, 06/15/2023, 08/27/2015, Additional history exists [...] this encounter Medical Devices Implanted Type Area Senior Credit Officer Device Identifier Shelf Expiration Date Model / Serial / Lot Lens Intraoc 23.5 - [id number] - [id number] Implanted:Qty: 1 on 08/03/2019 by Pranav Kwok MD at OR [facility] Left: Eye BAUSCH & LOMB 01/08/2024 [id number] / [id number] / [id number] Lens Intraoc 23.5 - [id number] - [id number] Implanted:Qty: 1 on 08/15/2019 by Pranav Kwok MD at OR [facility] Right: Eye BAUSCH & LOMB 08/08/2023 [id number] / [id number] / [id number] documented as of this encounter Care Teams Cattle Brander Relationship Specialty Start Date End Date Annmarie Barney MD [address] [place] [address] PCP - General Internal Medicine 02/15/24 documented as of this encounter
--- OUTSIDE RECORDS SUMMARY | 2024-03-22 05:51 | External Medical Summary | Summary of Care ---
Author Name Unknown Organization [facility] Address [address] [place] [address] Phone [phone] Care Team Providers Care Supervisor Cellars Name Role Phone Annmarie Barney MD Primary Care Provider [phone] Reason for Visit * Reason Onset Date Comments Med Request 03/20/2024 Encounter Details Date Type Department Care Team (Late st Contact Info) Description 03/20/2024 Telephone [facility] [address] [place] [address] Sid Roche MD [address] [place] [address] Med Request Allergies Active Allergy [...] mRNA, LNP-s, No Pre serve, 2-Dose Series ([employer]) 12/26/2020,05/29/2020,05/08/2020 COVID-19, MRNA-LNP, 24-25, P R, 30MCG/0.3ML, IM, 12YRS AND ABOVE (LAFASO-Comirnaty) 12/01/2023 Pneumococcal Conjugate Vacc, 13 Valent (Prevnar) [...] No 12/16/2023 Does the household have a [facility] source of income? (Household - for ages [...] patient and send new prescription [id number] [address] [place] [address] Pts daughter requesting greater than 7 day supply, if possible. Thank you, Tenisha Barrientos, Veneer Jointer Veneer Jointer I [facility] ([facility]) 03/20/2024,8:04 AM documented in this encounter Plan of Treatment Upcoming Encounters Date Type Department Care Team (Late st Contact Info) Description 06/15/2024 10:00 AM EDT Office Visit Rheumatology [facility] [address] [place] [phone] Jevon Kaur PA-C [address] [facility] [place] [address] 07/26/2024 10:20 AM EDT Office Visit [facility] Aura Ferraor [address] [phone] Sid Roche MD [address] [place] [address] Health Maintenance Due Date Last Done Comments Adult Wellness Visit 07/09/2003 Colonoscopy 08/26/2016 08/27/2011, 08/08, 09/18/2005 DXA Scan 09/17/2021 09/18/2019, 04/10, 11/16/2014, Additional history exists *BISPHONATE OR OTHER ACCEPTABLE MEDICATION NEEDED FOR OSTEOPOROSIS (REFER TO SMARTSET #1146) 01/09/2024 COVID-19 Vaccine ( season) 2024 12/01/2023, 12/07/2022, 11/13/2021, Additional history exists CKD HGB USE SMARTSET 76225 03/16/202403/16, 09/11/2022, 09/11/2022, Additional history exists CKD PHOS USE SMARTSET 03225 12/02/202411/09, 06/01/2022, 04/30/2021, Additional history exists Albumin/Creatinine [...] D LEVEL ONCE IN A LIFETIME-USE SMARTSET# 50730 Completed 12/03/2023, 06/15/2023, 08/27/2015, Additional history exists [...] this encounter Medical Devices Implanted Type Area Dye Tub Tender Device Identifier Shelf Expiration Date Model / Serial / Lot Lens Intraoc 23.5 - [id number] - [id number] Implanted:Qty: 1 on 08/03/2019 by Pranav Kwok MD at OR [facility] Left: Eye BAUSCH & LOMB 01/08/2024 [id number] / [id number] / [id number] Lens Intraoc 23.5 - [id number] - [id number] Implanted:Qty: 1 on 08/15/2019 by Pranav Kwok MD at OR [facility] Right: Eye BAUSCH & LOMB 08/08/2023 [id number] / [id number] / [id number] documented as of this encounter Care Teams Supervisor Cellars Relationship Specialty Start Date End Date Annmarie Barney MD [address] [place] [address] PCP - General Internal Medicine 02/15/24 documented as of this encounter
--- OUTSIDE RECORDS SUMMARY | 2024-03-22 05:51 | External Medical Summary | Summary of Care ---
Author Name Unknown Organization [facility] Address [address] [place] [address] Phone [phone] Care Team Providers Care Medical Device Sales Name Role Phone Annmarie Barney MD Primary Care Provider [phone] Reason for Visit * Reason Onset Date Comments medication change 03/13/2024 Advice 03/13/2024 Encounter Details Date Type Department Care Team (Late st Contact Info) Description 03/13/2024 Telephone [facility] [address] [place] [address] Annmarie Barney MD [address] [place] [id number] medication change; Advice Allergies Active Allergy Reactions [...] mRNA, LNP-s, No Pre serve, 2-Dose Series ([employer]) 12/26/2020,05/29/2020,05/08/2020 COVID-19, MRNA-LNP, 24-25, P R, 30MCG/0.3ML, IM, 12YRS AND ABOVE ([employer]-ComirnatAltavian) 12/01/2023 Pneumococcal Conjugate Vacc, 13 Valent (Prevnar) [...] it * Telephone Encounter - Delia Parmar [facility] - 03/13/2024 8:16 AM EST Patient's daughter calling as Emely is experiencing a lot of pain during the day. Asking for anincrease in the tramadol and to possibly take an additional tablet during the day. Please advise. Delia Sanchez [facility] Clinical Pharmacist [facility] Services ([facility]) [phone] * Telephone Encounter - Chyna Elkins miner - 03/13/2024 8:12 AM EST Patient's daughter calling in because her mother is asking for the tramadol prescription to be changed. She's experiencing pain during the day and would like to take it more than just at night. Transferred to pharmacist. Chyna Cuenca Bellhop II Centralized Clinical Pharmacy Services 03/13/2024 8:13 AM documented in this encounter Plan of Treatment Upcoming Encounters Date Type Department Care Team (Late st Contact Info) Description 06/15/2024 10:00 AM EDT Office Visit Rheumatology [facility] [address] [place] [phone] Jevon Kaur PA-C [address] [facility] [place] [address] 07/26/2024 10:20 AM EDT [facility] [place] [place] [address] [place] [phone] Sid Roche MD [address] [place] [address] Health Maintenance Due Date Last Done Comments Adult Wellness Visit 07/09/2003 Colonoscopy 08/26/2016 08/27/2011, 08/08, 09/18/2005 DXA Scan 09/17/2021 09/18/2019, 04/10, 11/16/2014, Additional history exists *BISPHONATE OR OTHER ACCEPTABLE MEDICATION NEEDED FOR OSTEOPOROSIS (REFER TO SMARTSET #1146) 01/09/2024 COVID-19 Vaccine ( season) 2024 12/01/2023, 12/07/2022, 11/13/2021, Additional history exists CKD HGB USE SMARTSET 62694 03/16/202403/16, 09/11/2022, 09/11/2022, Additional history exists CKD PHOS USE SMARTSET 95553 12/02/202411/09, 06/01/2022, 04/30/2021, Additional history exists Albumin/Creatinine [...] D LEVEL ONCE IN A LIFETIME-USE SMARTSET# 01204 Completed 12/03/2023, 06/15/2023, 08/27/2015, Additional history exists [...] this encounter Medical Devices Implanted Type Area Deputy Grand Jury Device Identifier Shelf Expiration Date Model / Serial / Lot Lens Intraoc 23.5 - [id number] - [id number] Implanted:Qty: 1 on 08/03/2019 by Pranav Kwok MD at OR [facility] Left: Eye BAUSCH & LOMB 01/08/2024 [id number] / [id number] / [id number] Lens Intraoc 23.5 - [id number] - [id number] Implanted:Qty: 1 on 08/15/2019 by Pranav Kwok MD at OR [facility] Right: Eye BAUSCH & LOMB 08/08/2023 [id number] / [id number] / [id number] documented as of this encounter Care Teams Medical Device Sales Relationship Specialty Start Date End Date Annmarie Barney MD [facility] [place] [address] PCP - General Internal Medicine 02/15/24 documented as of this encounter
--- OUTSIDE RECORDS SUMMARY | 2024-03-22 05:51 | External Medical Summary | Summary of Care ---
Author Name Unknown Organization [facility] Address [address] [place] [address] Phone [phone] Care Team Providers Care Assistant Corporate Controller Name Role Phone Annmarie Barney MD Primary Care Provider [phone] Reason for Visit * Reason Onset Date Comments Advice 03/07/2024 Encounter Details Date Type Department Care Team (Late st Contact Info) Description 03/07/2024 Telephone [facility] [address] [place] [address] Annmarie Barney MD [address] [place] [address] Advice Allergies Active Allergy Reactions Criticality Noted Date Comments Nitrofurantoin Rash High 08/24/2021 Sulfa Antibiotics 08/14/2021 Sulfamethoxazole Rash Medium 10/23/2016 Trimethoprim Rash High 08/24/2021 documented as of this encounter (statuses as of 03/09/2024) Medications Cholecalciferol 25 MCG (1000 UT) Oral [...] as of this encounter (statuses as of 03/09/2024) Active Problems Problem Noted Date Diagnosed Date [...] as of this encounter (statuses as of 03/09/2024) Resolved Problems Problem Noted Date Diagnosed Date [...] as of this encounter (statuses as of 03/09/2024) Immunizations Name Administration Dates Next Due COVID-19 mRNA, LNP-s, No Pre serve, 2-Dose Series ([employer]) 12/26/2020,05/29/2020,05/08/2020 COVID-19, MRNA-LNP, 24-25, P R, 30MCG/0.3ML, IM, 12YRS AND ABOVE ([employer]-Comirnaty) 12/01/2023 Pneumococcal Conjugate Vacc, 13 Valent (Prevnar) [...] No 12/16/2023 Does the household have a [facility] source of income? (Household - for ages [...] No 12/16/2023 Are you (or your family) laberto eless or worried that you might be [...] encounter Miscellaneous Notes * Telephone Encounter - Rosana Marquez LPN - 03/09/2024 10:54 AM EST Left a VM on identified VM of message below and left call back number if needed with any questions. * Telephone Encounter - Annmarie Barney MD - 03/09/2024 9:29 AM EST She can take tylenol with tramadol Will send muscle relaxer but it can cause drowsiness , so should be careful Do not take with tramadol * Telephone Encounter - Evelin Gaines LPN - 03/09/2024 9:18 AM EST Please advise, thank you! * Telephone Encounter - Jenifer Jacinto OSA - 03/08/2024 1:59 PM EST Annelise patient's daughter is now requesting if provider can prescribe patient a muscle relaxer to alleviate the pain due to arthritis in knee * Telephone Encounter - Zulma Zepeda OSA - 03/08/2024 8:46 AM EST Patient calling in to check on the status of previous message. Patient Called within 48 hour timeframe. Reminded patient of 48 hour turn-around time. * Telephone Encounter - Jennifer Day OSA - 03/07/2024 6:53 PM EST Pt. Daughter is calling in as pt. Was prescribed Tramadol today for arthritis in her right knee. Pt. Daughter is wondering if pt. Can take tylenol in addition to the Tramadol for pain? Please call pt. Daughter back as soon as possible regarding question. documented in this encounter Plan of Treatment Upcoming Encounters Date Type Department Care Team (Late st Contact Info) Description 06/15/2024 10:00 AM EDT Office Visit Rheumatology [facility] [address] [phone] Jeovn Kaur PA-C [address] [facility] [place] [address] 07/26/2024 10:20 AM EDT [facility] [address] [phone] Sid Roche MD [address] [address] Health Maintenance Due Date Last Done Comments Adult Wellness Visit 07/09/2003 Colonoscopy 08/26/2016 08/27/2011, 08/08, 09/18/2005 DXA Scan 09/17/2021 09/18/2019, 04/10, 11/16/2014, Additional history exists *BISPHONATE OR OTHER ACCEPTABLE MEDICATION NEEDED FOR OSTEOPOROSIS (REFER TO SMARTSET #1146) 01/09/2024 COVID-19 Vaccine ( season) 2024 12/01/2023, 12/07/2022, 11/13/2021, Additional history exists CKD HGB USE SMARTSET 50903 03/16/202403/16, 09/11/2022, 09/11/2022, Additional history exists CKD PHOS USE SMARTSET 84354 12/02/202411/09, 06/01/2022, 04/30/2021, Additional history exists Albumin/Creatinine [...] D LEVEL ONCE IN A LIFETIME-USE SMARTSET# 81628 Completed 12/03/2023, 06/15/2023, 08/27/2015, Additional history exists [...] this encounter Medical Devices Implanted Type Area Clinical Quality Assurance Specialist Device Identifier Shelf Expiration Date Model / Serial / Lot Lens Intraoc 23.5 - [id number] - [id number] Implanted:Qty: 1 on 08/03/2019 by Pranav Kwok MD at OR [facility] Left: Eye [employer]OM[employer] 01/08/2024 [id number] / [id number] / [id number] Lens Intraoc 23.5 - [id number] - [id number] Implanted:Qty: 1 on 08/15/2019 by Pranav Kwok MD at OR [facility] Right: Eye BAUSCH [employer] LOMB 08/08/2023 [id number] / [id number] / [id number] documented as of this encounter Care Teams Assistant Corporate Controller Relationship Specialty Start Date End Date Annmarie Barney MD [address] [place] [address] [place] [address] PCP - General Internal Medicine 02/15/24 documented as of this encounter
--- OUTSIDE RECORDS SUMMARY | 2024-03-22 05:51 | External Medical Summary | Summary of Care ---
Author Name Unknown Organization [facility] Address [address] [place] [address] Phone [phone] Care Team Providers Care Apparel Patternmaker Name Role Phone Annmarie Barney MD Primary Care Provider [phone] Reason for Visit * Reason Onset Date Comments medication change 03/13/2024 Advice 03/13/2024 Encounter Details Date Type Department Care Team (Late st Contact Info) Description 03/13/2024 Telephone [facility] [address] [place] [address] Annmarie Barney MD [address] [place] [phone] medication change; Advice Allergies Active Allergy Reactions [...] mRNA, LNP-s, No Pre serve, 2-Dose Series ([employer]) 12/26/2020,05/29/2020,05/08/2020 COVID-19, MRNA-LNP, 24-25, P R, 30MCG/0.3ML, IM, 12YRS AND ABOVE ([employer]nat[employer]) 12/01/2023 Pneumococcal Conjugate Vacc, 13 Valent (Prevnar) [...] the day. Please advise. Thanks, Delia Parmar [facility] Clinical Pharmacist [facility] Services ([facility]) [phone] * Telephone Encounter - Chyna Elkins, flavor tank tender - 03/13/2024 8:12 AM EST Patient's daughter calling in because her mother is asking for the tramadol prescription to be changed. She's experiencing pain during the day and would like to take it more than just at night. Transferred to pharmacist. Chyna Cuenca Button Maker II [facility] 03/13/2024 8:13 AM documented in this encounter Plan of Treatment Upcoming Encounters Date Type Department Care Team (Late st Contact Info) Description 06/15/2024 10:00 AM EDT Office Visit Rheumatology [facility] [address] [place] [phone] Jevon Kaur PA-C [address] [facility] [place] [address] 07/26/2024 10:20 AM EDT Office Visit [facility] [address] [phone] Sid Roche MD [address] [address] Health Maintenance Due Date Last Done Comments Adult Wellness Visit 07/09/2003 Colonoscopy 08/26/2016 08/27/2011, 08/08, 09/18/2005 DXA Scan 09/17/2021 09/18/2019, 04/10, 11/16/2014, Additional history exists *BISPHONATE OR OTHER ACCEPTABLE MEDICATION NEEDED FOR OSTEOPOROSIS (REFER TO SMARTSET #1146) 01/09/2024 COVID-19 Vaccine ( season) 2024 12/01/2023, 12/07/2022, 11/13/2021, Additional history exists CKD HGB USE SMARTSET 60801 03/16/202403/16, 09/11/2022, 09/11/2022, Additional history exists CKD PHOS USE SMARTSET 40800 12/02/202411/09, 06/01/2022, 04/30/2021, Additional history exists Albumin/Creatinine [...] D LEVEL ONCE IN A LIFETIME-USE SMARTSET# 23367 Completed 12/03/2023, 06/15/2023, 08/27/2015, Additional history exists [...] this encounter Medical Devices Implanted Type Area Radiation Monitor Device Identifier Shelf Expiration Date Model / Serial / Lot Lens Intraoc 23.5 - [id number] - [id number] Implanted:Qty: 1 on 08/03/2019 by Pranav Kwok MD at OR [facility] Left: Eye [employer]OMB 01/08/2024 [id number] / [id number] / [id number] Lens Intraoc 23.5 - [id number] - [id number] Implanted:Qty: 1 on 08/15/2019 by Pranav Kwok MD at OR [facility] Right: Eye [employer]OM[employer] 08/08/2023 [id number] / [id number] / [id number] documented as of this encounter Care Teams Apparel Patternmaker Relationship Specialty Start Date End Date Annmarie Barney MD [address] [address] PCP - General Internal Medicine 02/15/24 documented as of this encounter
--- OUTSIDE RECORDS SUMMARY | 2024-03-22 05:51 | External Medical Summary | Summary of Care ---
Author Name Unknown Organization [facility] Address [address] [place] [address] Phone [phone] Care Team Providers Care Gang Sawyer Name Role Phone Annmarie Barney MD Primary Care Provider Reason for Visit * Reason Onset Date Comments medication change 03/13/2024 Advice 03/13/2024 Encounter Details Date Type Department Care Team (Late st Contact Info) Description 03/13/[address] [facility] [address] [place] [address] Annmarie Barney MD [address] [place] [phone] medication change; Advice Allergies Active Allergy Reactions [...] mRNA, LNP-s, No Pre serve, 2-Dose Series ([employer]) 12/26/2020,05/29/2020,05/08/2020 COVID-19, MRNA-LNP, 24-25, P R, 30MCG/0.3ML, IM, 12YRS AND ABOVE ([employer]) 12/01/2023 Pneumococcal Conjugate Vacc, 13 Valent (Prevnar) [...] the day. Please advise. Thanks, Delia Parmar [facility] Clinical Pharmacist Centralized Clinical Pharmacy Services ([facility]) [phone] * Telephone Encounter - Chyna Elkins, plant health care technician - 03/13/2024 8:12 AM EST Patient's daughter calling in because her mother is asking for the tramadol prescription to be changed. She's experiencing pain during the day and would like to take it more than just at night. Transferred to pharmacist. Chyna Cuenca Bindery Leadperson II [facility] 03/13/2024 8:13 AM documented in this encounter Plan of Treatment Upcoming Encounters Date Type Department Care Team (Late st Contact Info) Description 06/15/2024 10:00 AM EDT Office Visit Rheumatology [facility] [address] [place] [phone] Jevon Kaur PA-C [address] [facility] [place] [address] 07/26/2024 10:20 AM EDT Office Visit [facility] [address] [phone] Sid Roche MD [address] [address] Health Maintenance Due Date Last Done Comments Adult Wellness Visit 07/09/2003 Colonoscopy 08/26/2016 08/27/2011, 08/08, 09/18/2005 DXA Scan 09/17/2021 09/18/2019, 04/10, 11/16/2014, Additional history exists *BISPHONATE OR OTHER ACCEPTABLE MEDICATION NEEDED FOR OSTEOPOROSIS (REFER TO SMARTSET #1146) 01/09/2024 COVID-19 Vaccine ( season) 2024 12/01/2023, 12/07/2022, 11/13/2021, Additional history exists CKD HGB USE SMARTSET 14934 03/16/202403/16, 09/11/2022, 09/11/2022, Additional history exists CKD PHOS USE SMARTSET 85242 12/02/202411/09, 06/01/2022, 04/30/2021, Additional history exists Albumin/Creatinine [...] D LEVEL ONCE IN A LIFETIME-USE SMARTSET# 55038 Completed 12/03/2023, 06/15/2023, 08/27/2015, Additional history exists [...] this encounter Medical Devices Implanted Type Area Floor Worker Well Service Device Identifier Shelf Expiration Date Model / Serial / Lot Lens Intraoc 23.5 - [id number] - [id number] Implanted:Qty: 1 on 08/03/2019 by Pranav Kwok MD at OR [facility] Left: Eye [employer]OMB 01/08/2024 [id number] / [id number] / [id number] Lens Intraoc 23.5 - [id number] - [id number] Implanted:Qty: 1 on 08/15/2019 by Pranav Kwok MD at OR [facility] Right: Eye [employer] 08/08/2023 [id number] / [id number] / [id number] documented as of this encounter Care Teams Gang Sawyer Relationship Specialty Start Date End Date Annmarie Barney MD [address] [address] PCP - General Internal Medicine 02/15/24 documented as of this encounter
--- OUTSIDE RECORDS SUMMARY | 2024-03-22 05:52 | External Medical Summary | Summary of Care ---
Author Name Unknown Organization [facility] Address [address] [place] [address] Phone [phone] Care Team Providers Care Ambulatory Care Nurse Name Role Phone Annmarie Barney MD Primary Care Provider [phone] Reason for Visit * Reason Onset Date Comments Advice 03/07/2024 Encounter Details Date Type Department Care Team (Late st Contact Info) Description 03/07/2024 Telephone [facility] Subhash [address] [facility] [place] [address] Annmarie Barney MD [address] [place] [address] Advice Allergies Active Allergy Reactions [...] mRNA, LNP-s, No Pre serve, 2-Dose Series ([employer]) 12/26/2020,05/29/2020,05/08/2020 COVID-19, MRNA-LNP, 24-25, P R, 30MCG/0.3ML, IM, 12YRS AND ABOVE ([employer]-Comirnaty) 12/01/2023 Pneumococcal Conjugate Vacc, 13 Valent (Prevnar) [...] No 12/16/2023 Does the household have a [facility] cancer [facility] source of income? (Household - for [...] thank you! * Telephone Encounter - Jenifer Jaicnto OSA - 03/08/2024 1:59 PM EST Annelise [...] 06/15/2024 10:00 AM EDT Office Visit Rheumatology [facility] [address] [phone] Jevon Kaur PA-C [address] [facility] [place] [address] 07/26/2024 10:20 AM EDT [facility] [address] [phone] Sid Roche MD [address] [address] Health Maintenance Due Date Last Done Comments Adult Wellness Visit 07/09/2003 Colonoscopy 08/26/2016 08/27/2011, 08/08, 09/18/2005 DXA Scan 09/17/2021 09/18/2019, 04/10, 11/16/2014, Additional history exists *BISPHONATE OR OTHER ACCEPTABLE MEDICATION NEEDED FOR OSTEOPOROSIS (REFER TO SMARTSET #1146) 01/09/2024 COVID-19 Vaccine ( season) 2024 12/01/2023, 12/07/2022, 11/13/2021, Additional history exists CKD HGB USE SMARTSET 78109 03/16/202403/16, 09/11/2022, 09/11/2022, Additional history exists CKD PHOS USE SMARTSET 80437 12/02/202411/09, 06/01/2022, 04/30/2021, Additional history exists Albumin/Creatinine [...] D LEVEL ONCE IN A LIFETIME-USE SMARTSET# 44293 Completed 12/03/2023, 06/15/2023, 08/27/2015, Additional history exists [...] this encounter Medical Devices Implanted Type Area Content Curator Device Identifier Shelf Expiration Date Model / Serial / Lot Lens Intraoc 23.5 - [id number] - [id number] Implanted:Qty: 1 on 08/03/2019 by Pranav Kwok MD at OR [facility] Left: Eye [employer]CH [employer]OMB 01/08/2024 [id number] / [id number] / [id number] Lens Intraoc 23.5 - [id number] - [id number] Implanted:Qty: 1 on 08/15/2019 by Pranav Kwok MD at OR [facility] Right: Eye [employer] 08/08/2023 [id number] / [id number] / [id number] documented as of this encounter Care Teams Ambulatory Care Nurse Relationship Specialty Start Date End Date Annmarie Barney MD [address] [place] [address] [place] [address] PCP - General Internal Medicine 02/15/24 documented as of this encounter
[2024-03-22 06:03] LABS: BUN Creatinine Ratio 20.2 (10-20); Calcium 8.6 mg/dl (8.6-10.3); Magnesium 2.1 mg/dl (1.7-2.4); Potassium 3.3 mmol/L (3.5-5.1)
--- NOTE | 2024-03-22 07:13 | Nephrology Consultation ---
Date of Consultation March 22, 2024 Assessment & Plan (1) Hyponatremia: euvolemic hyponatremia versus mildly hypovolemic on presentation and euvolemic. presented w/ sNa 125 1900 on 03/22. up to 129 w/in 12 hours. target sNa is no more than 131 by 1800 this evening. -no current fluid restriction -continue q6h BMP -for now will hold NS -maintain eukalemia -control pain which is a powerful ADH stimulator -f/u on CT a/p results; doubt abd pain relates to low Na but will follow >when taking po more reliably, recommend 1 gm/ kg protein intake consisntely Care coordinated via TText w/ Dr Barrera re R knee issues and importance of pain control, max tolerable sodium levels, importance of po and protein intake; we are in agreement. (2) High blood pressure: improved/ at acceptable range after first few hours of HTN urgency -stopped NS -cont lisinopril 10 mg daily (OP dose) (3) Hematuria: chronic microhematuria; OP issue; keep [facility] urology f/u History of Present Illness Reason for Consultation: hyponatremia Requesting Physician: Dr Lewis Attending Physician: Oscar Barrera MD History of Present Illness 88 y/o F whom I'm asked to see for hyponatremia was admitted late last evening for hyponatremia w/ presenting sodium 127 on maxzide with HTN urgency. PMH includes HTN, rheumatoid arthritis, chronically inflamed urine/on methenemine chronically, chronic microhematuria, hyperlipidemia, chronic sinusitis, GERD, osteoporosis, chronic ambulatory dysfunction / walker dependent, hard of hearing. Note no CKD and baseline creatinine 0.9. No chronic or consistent hyponatremia as an outpatient in [facility] though frequently hyponatremic on [employer] labs. She has been on triamt/hctz since 2016, consistent dose. She follows w/ [facility] urology annually. Pt felt sick to her stomach w/ N, no emesis, and weak for 3 days prior to presentation. Also c/o RLQ abd discomfort on presentation. No diarrhea. Normal bowel movements. no new/worrisome voiding concerns No fevers. she tells me her R knee is often painful and has been exquisitely so past few days before admission > did not have her regular pain pills for a few days/ran out and pain "made me half sick so I couldn't eat." no recent knee trauma. she has pain meds on board now and is eating better somewhat. Her daughter has been giving her advil in the evenings for quite some time as well. no dyspnea, cough, orthopnea. Her presenting sodium was 125 at 1900 yesterday, up to 129 > 128 this am. serum osms 270 this am; u Osm 247 and Leslie 47. SBP was 200s initially but came down w/in 4 hours to 120s systolic. She is receiving NS at 50 mL hourly. She did have 40 mEq po K this am. Allergies Allergy/AdvReac Type Severity Reaction Status Date / Time nitrofurantoin Allergy Intermediate all over Verified 03/26/23 11:08 pruritic rash trimethoprim Allergy Intermediate Rash Verified 03/26/23 11:08 Sulfa (Sulfonamide AdvReac Severe Gastrointestinal Verified 03/26/23 11:08 Antibiotics) Upset Home Medications Medication Instructions Recorded Confirmed Type atorvastatin 40 mg tablet 40 mg PO DAILY 03/21/24 03/21/24 History baclofen 10 mg tablet 10 mg PO BID 03/21/24 03/21/24 History calcium 600 mg (as 1 tab PO DAILY 03/21/24 03/21/24 History carbonate)-vitamin D3 5 mcg (200 unit) tablet cetirizine 10 mg tablet 10 mg PO DAILY 03/21/24 03/21/24 History cyanocobalamin (vitamin B-12) 1,000 mcg PO DAILY 03/21/24 03/21/24 History 1,000 mcg tablet methenamine hippurate 1 gram tablet 1 g PO BID 03/21/24 03/21/24 History omeprazole 20 mg capsule,delayed 20 mg PO DAILY 03/21/24 03/21/24 History release potassium chloride 20 mEq 20 meq PO DAILY 03/21/24 03/21/24 History tablet,extended release tramadol 50 mg tablet 50 mg PO HS PRN Severe Pain (Scale 03/21/24 03/21/24 History Score 7-10) triamterene 37.5 1 tab PO DAILY 03/21/24 03/21/24 History mg-hydrochlorothiazide 25 mg tablet Patient History Medical History UTI (urinary tract infection) High blood pressure Surgical History H/O: hysterectomy No significant past surgical history Family History Daughter Diabetes Nephrolithiasis Other Family history non-contributory Social History Smoking Status: Never smoker Second Hand Exposure: No; Do You Dip or Chew Tobacco: No; Tobacco Cessation Education Requested by Patient: No Hx Alcohol Use: No Hx Substance Use: No Preferred Language: Estonian Communication Ability: Effective Laboratory Analyst Required: No Beliefs That Will Affect Care: None Current Living Situation: Family Current Living Situation Comment: lives with daughter Other Information That Helps Us Care for You: No Feels Safe at Home: Yes Safety Concerns: Feels Safe At This Time Assistive Devices: Hospital Bed and Walker Review of Systems 2 Review of Systems: All systems reviewed & are unremarkable except as noted in HPI & below Physical Exam 2 Constitutional: well developed and well nourished Eyes: EOM intact bilaterally ENMT: Ears: no external ear abnormality Nose: no external nose abnormality Mouth: + dry oral mucous membranes Neck: no nuchal rigidity Respiratory: normal respiratory effort Auscultation: + diminished lung sounds Cardiovascular: RRR, no murmur, no edema Gastrointestinal (Abdomen): Inspection/Auscultation: normal bowel sounds P ercussion/Palpation: abdomen soft; abdomen nontender Musculoskeletal: Extremities: extremities normal to inspection (including R knee w/o heat, redness, focal pain, or fluctuance) and strength 5/5 throughout Skin: no rashes, warm and dry Neurologic: velasquez, fluent speech, no tremor Psychiatric: Orientation: alert and oriented x 3 Results & Data Vital Signs (Past 12 Hours) Vital Signs Temp Pulse Pulse Resp BP BP Pulse Ox 03/22/24 02:52 37.4 C 82 18 123/80 95 03/22/24 01:27 03/22/24 01:00 03/22/24 01:00 37.5 C 85 18 133/86 95 03/22/24 01:00 37.5 C 85 18 133/86 95 03/22/24 00:47 79 20 116/64 98 03/22/24 00:17 80 121/69 03/21/24 23:42 101 H 179/92 H 03/21/24 23:00 104 H 20 179/92 H 96 03/21/24 21:59 92 H 03/21/24 21:59 90 18 204/95 H 95 03/21/24 19:49 96 H 20 122/81 97 Pulse Ox O2 Del Method O2 Del Method 03/22/24 02:52 Room Air 03/22/24 01:27 95 Room Air 03/22/24 01:00 Room Air 03/22/24 01:00 Room Air 03/22/24 01:00 Room Air 03/22/24 00:47 Room Air 03/22/24 00:17 03/21/24 23:42 03/21/24 23:00 Room Air 03/21/24 21:59 03/21/24 21:59 Room Air 03/21/24 19:49 Room Air Laboratory Results 03/22/24 05:23 03/22/24 05:23 UA > sg 1014, 2+ blood, yeast present 11 AM > Na 128, K 3.[address] a/p non con FINDINGS: Cardiomegaly. Calcified granulomata of the left lower lobe with mild subsegmental bibasilar atelectasis. There is no pneumatosis or pneumoperitoneum. Unremarkable spleen, moderately atrophic pancreas and adrenal glands. The gallbladder is distended. Unremarkable liver. Cysts of the kidneys measuring up to 2.5 cm is on the left and 1.1 cm on the right. No ureteral calculi or hydronephrosis. Unremarkable urinary bladder. Hysterectomy. Mesenteric lymph nodes measuring up to 10 mm, similar to prior suggestive of a chronic mesenteric radiculitis. Moderate sized hiatal hernia. Duodenal diverticulum. Colonic diverticulosis without acute diverticulitis. Scattered colonic air-fluid levels. Unremarkable terminal ileum. Not position of the appendix. No secondary signs of acute appendicitis. Degenerative changes of the spine with multilevel central canal stenosis. No acute fracture identified. IMPRESSION: 1. No acute intra-abdominal or intrapelvic abnormality. 2. Colonic diverticulosis without acute diverticulitis. 3. Moderate-sized hiatal hernia. 4. Incidental findings as above.
[2024-03-22] MEDS: ONDANSETRON INJ 2 MG/ML 2 ML VIAL IV PRN (07:48)
[2024-03-22] MEDS: POTASSIUM CHLORIDE CRTAB 20 MEQ TABCR PO STA (08:05)
[2024-03-22] MEDS: traMADol HCL 50 MG TABLET PO PRN (08:05)
[2024-03-22] MEDS: lisinopril 10 MG TAB PO SCH (08:06)
[2024-03-22] MEDS: PANTOprazole 40 MG TAB PO SCH (08:06)
[2024-03-22] MEDS: CETIRIZINE HCL 10 MG TABLET PO SCH (08:06)
[2024-03-22] MEDS: CALCIUM 600MG + VIT D 400 IU TAB PO SCH (08:06)
[2024-03-22] MEDS: CYANOCOBALAMIN (B-12) 500 MCG TABLET PO SCH (08:06)
[2024-03-22] MEDS: ATORVASTATIN 40 MG TAB PO SCH (08:07)
[2024-03-22] MEDS: BACLOFEN 10 MG TAB PO SCH (08:10)
--- NOTE | 2024-03-22 08:39 | Hospitalist Progress Note ---
Date of Service March 22, 2024 Assessment & Plan (1) Hyponatremia: Plan: 88-year-old female with past medical history significant for hyperlipidemia, chronic sinusitis, hypertension, GERD, CKD stage III, osteoporosis, hard of hearing, rheumatoid arthritis involving multiple sites with positive rheumatoid factor who lives at home with her daughter and ambulates with a walker comes because of weakness and nausea and found to have hyponatremia. As per daughters patient since last 3 days was feeling sick to the stomach and weak. Nauseous but no vomiting. No diarrhea. Normal bowel movements. Micturating okay. No burning micturition. No fevers. Complains of some abdominal discomfort in the right lower quadrant. Denies any chest pain. No shortness of breath. No headache. No runny nose or sore throat. No difficulty swallowing. Alert and oriented x 3. Resting comfortably and hemodynamically stable. Complains of back pain for sitting in the chair for long time. Hyponatremia Sodium 125 Maxide hold on admission Received 1 L fluid in the ER continued with NS 50 mL/h on admission Slow correction BMP every 6 hours Urine osmolality, serum osmolality and urine sodium levels Telemetry Nephrology consulted for further recommendation Na improved now at 128/129 Hypertensive urgency IV labetalol as needed Holding Maxzide with potassium supplement Lisinopril for now and monitor Abdominal pain CT abd/pelvis obtained - 1. No acute intra-abdominal or intrapelvic abnormality. 2. Colonic diverticulosis without acute diverticulitis. 3. Moderate-sized hiatal hernia. Currently feeling improved. Reviewed with pt and her sisters at the bedside unremarkable CT abd/pelvis - cont. PPI - pt has been taking tylenol, advil for arthritis pain, then switched to tramadol by pcp - pt says she was able to eat a little today Hyperlipidemia On statin GERD On omeprazole CKD stage III Creatinine 1.04 We will follow labs DVT prophylaxis Heparin subcu Disposition Telemetry Full code per admitting provider's discussion with the daughter Admission and Anticipated Discharge Date Admission Date: March 21, 2024 Subjective Pt seen in follow up of weakness, nausea, hyponatremia Reported abdominal discomfort and CT obtained - unremarkable Currently laying in bed in NAD, reports feeling better and says she was able to eat something Daughters presents at the bedside. Pt denies fever, chills, chest pain, shortness of breath. Reports arthritis pain in her knee. taking tylenol, advil then started on tramadol per pcp. Review of Systems Review of Systems: All systems reviewed & are unremarkable except as noted in Subjective Physical Exam Physical Exam: General- WD/WN elderly F in NAD Head- atraumatic Eyes- PERRL. Neck- supple, no JVD. Lungs- clear to auscultation no wheezing or crackles. Heart- regular rate and rhythm; no murmur Abdomen- normal bowel sounds, soft, mild lower quadrants tenderness - now improved, no rigidity, no distension Extremities- trace pretibial edema present , no erythema seen Neuro- alert, oriented x 3; PERRL, no facial palsy; no dysarthria; moves extremities Results & Data Results & Data Vital Signs (Past 12 Hours) Vital Signs Temp Pulse Pulse Resp BP BP Pulse Ox 03/22/24 07:28 36.3 C L 71 17 125/67 95 03/22/24 02:52 37.4 C 82 18 123/80 95 03/22/24 01:27 03/22/24 01:00 03/22/24 01:00 37.5 C 85 18 133/86 95 03/22/24 01:00 37.5 C 85 18 133/86 95 03/22/24 00:47 79 20 116/64 98 03/22/24 00:17 80 121/69 03/21/24 23:42 101 H 179/92 H 03/21/24 23:00 104 H 20 179/92 H 96 03/21/24 21:59 92 H 03/21/24 21:59 90 18 204/95 H 95 Pulse Ox O2 Del Method O2 Del Method 03/22/24 07:28 Room Air 03/22/24 02:52 Room Air 03/22/24 01:27 95 Room Air 03/22/24 01:00 Room Air 03/22/24 01:00 Room Air 03/22/24 01:00 Room Air 03/22/24 00:47 Room Air 03/22/24 00:17 03/21/24 23:42 03/21/24 23:00 Room Air 03/21/24 21:59 03/21/24 21:59 Room Air Laboratory Results 03/22/24 03/22/24 03/21/24 Range/Units 05:23 01:45 19:00 WBC 8.49 10.57 (4.8-10.8) K/ul RBC 3.52 L 4.26 (4.20-5.40) M/uL Hgb 10.4 L 12.7 (12.0-16.0) g/dl Hct 30.8 L 37.1 (37.0-47.0) % MCV 87.5 87.1 (80.0-100.0) fL MCH 29.5 29.8 (25.0-34.0) pg MCHC 33.8 34.2 (32.0-36.0) g/dL RDW Std Deviation 41.5 41.0 (36.4-46.3) fL RDW Coeff of Gera 13.2 13.0 (11.5-14.5) % Plt Count 250 314 (130-400) K/uL MPV 8.6 L 8.6 L (9.4-12.4) fL Immature Gran % (Auto) 0.4 0.4 % Neut % (Auto) 64.2 68.1 % Lymph % (Auto) 22.4 21.4 % [place] % (Auto) 11.8 9.6 % Eos % (Auto) 0.8 0.1 % Baso % (Auto) 0.4 0.4 % Neut # (Auto) 5.46 7.20 H (1.40-6.50) K/uL Lymph # (Auto) 1.90 2.26 (1.20-3.40) K/uL [place] # (Auto) 1.00 H 1.02 H (0.11-0.59) K/uL Eos # (Auto) 0.07 0.01 (0.00-0.50) K/uL Baso # (Auto) 0.03 0.04 (0.00-0.20) K/uL Immature Gran # (Auto) 0.03 0.04 (0.01-0.20) K/uL Sodium 129 L 125 L (136-145) mmol/L Potassium 3.3 L 3.6 (3.5-5.1) mmol/L Chloride 94 L 86 L (98-107) mmol/L Carbon Dioxide 30 30 (21-32) mmol/L Anion Gap 5 9 (3-11) BUN 18 22 (6-23) mg/dl Creatinine 0.89 1.04 (0.6-1.2) mg/dl Est Cr Clr Drug Dosing 41.0 Not Reportable eGFR 63.10 52.34 BUN/Creatinine Ratio 20.2 H 21.2 H (10-20) Glucose 111 H 148 H (70-99(Fasting)) mg/dl Osmolality 270 L (280-300) mOsm/kg Calcium 8.6 10.0 (8.6-10.3) mg/dl Magnesium 2.1 (1.7-2.4) mg/dl Total Bilirubin 1.3 H (0.2-1.0) mg/dl AST 22 (13-39) U/L ALT 12 (7-52) U/L Alkaline Phosphatase 96 (34-104) U/L Total Protein 8.2 (6.0-8.3) gm/dl Albumin 4.7 (3.4-5.0) gm/dl Globulin 3.5 (2.5-4.0) gm/dl Albumin/Globulin Ratio 1.3 (0.9-2) Urine Color Urine Appearance (Clear) Urine pH (4.5-7.5) Ur Specific [place] (1.000-1.030) Urine Protein (Negative) Urine Glucose (UA) (Negative) Urine Ketones (Negative) Urine Blood (Negative) Urine Nitrite (Negative) Urine Bilirubin (Negative) Urine Urobilinogen (Negative) Ur Leukocyte Esterase (Negative) Urine WBC (Auto) (0-5) /hpf Urine RBC (Auto) (0-2) /hpf U Hyaline Cast (Auto) (0-2) /lpf U Epithel Cells (Auto) (0-2) /hpf Urine Bacteria (Auto) (None Seen) Urine Yeast (None Prsent) Urine Osmolality 247 L (500-800) mOsm/kg Ur Random Sodium 41 mmol/L 03/21/24 Range/Units 18:37 WBC (4.8-10.8) K/ul RBC (4.20-5.40) M/uL Hgb (12.0-16.0) g/dl Hct (37.0-47.0) % MCV (80.0-100.0) fL MCH (25.0-34.0) pg MCHC (32.0-36.0) g/dL RDW Std Deviation (36.4-46.3) fL RDW Coeff of Gera (11.5-14.5) % Plt Count (130-400) K/uL MPV (9.4-12.4) fL Immature Gran % (Auto) % Neut % (Auto) % Lymph % (Auto) % [place] % (Auto) % Eos % (Auto) % Baso % (Auto) % Neut # (Auto) (1.40-6.50) K/uL Lymph # (Auto) (1.20-3.40) K/uL [place] # (Auto) (0.11-0.59) K/uL Eos # (Auto) (0.00-0.50) K/uL Baso # (Auto) (0.00-0.20) K/uL Immature Gran # (Auto) (0.01-0.20) K/uL Sodium (136-145) mmol/L Potassium (3.5-5.1) mmol/L Chloride (98-107) mmol/L Carbon Dioxide (21-32) mmol/L Anion Gap (3-11) BUN (6-23) mg/dl Creatinine (0.6-1.2) mg/dl Est Cr Clr Drug Dosing eGFR BUN/Creatinine Ratio (10-20) Glucose (70-99(Fasting)) mg/dl Osmolality (280-300) mOsm/kg Calcium (8.6-10.3) mg/dl Magnesium (1.7-2.4) mg/dl Total Bilirubin (0.2-1.0) mg/dl AST (13-39) U/L ALT (7-52) U/L Alkaline Phosphatase (34-104) U/L Total Protein (6.0-8.3) gm/dl Albumin (3.4-5.0) gm/dl Globulin (2.5-4.0) gm/dl Albumin/Globulin Ratio (0.9-2) Urine Color Yellow Urine Appearance Clear (Clear) Urine pH 7.5 (4.5-7.5) Ur Specific [place] 1.014 (1.000-1.030) Urine Protein Negative (Negative) Urine Glucose (UA) Negative (Negative) Urine Ketones Negative (Negative) Urine Blood 2+ H (Negative) Urine Nitrite Negative (Negative) Urine Bilirubin Negative (Negative) Urine Urobilinogen Negative (Negative) Ur Leukocyte Esterase Negative (Negative) Urine WBC (Auto) 0-5 (0-5) /hpf Urine RBC (Auto) >20 H (0-2) /hpf U Hyaline Cast (Auto) 0-2 (0-2) /lpf U Epithel Cells (Auto) 0-2 (0-2) /hpf Urine Bacteria (Auto) None Seen (None Seen) Urine Yeast Present A (None Prsent) Urine Osmolality (500-800) mOsm/kg Ur Random Sodium mmol/L Medications Administered Current Inpatient Medications Acetaminophen (Acetaminophen 325 Mg Tab) 650 mg PO Q4H PRN PRN Reason: Pain or Fever Stop: 04/21/24 01:26 Last Admin: 03/22/24 04:19 Dose: 650 mg Atorvastatin Calcium (Atorvastatin 40 Mg Tab) 40 mg PO DAILY ELISA Stop: 04/21/24 08:59 Last Admin: 03/22/24 08:07 Dose: 40 mg Baclofen (Baclofen 10 Mg Tab) 10 mg PO BID ELISA Stop: 04/21/24 08:59 Last Admin: 03/22/24 08:10 Dose: 10 mg Calcium/Vitamin D (Calcium 600mg + Vit D 400 Iu Tab) 1 tab PO DAILY ELISA Stop: 04/21/24 08:59 Last Admin: 03/22/24 08:06 Dose: 1 tab Cetirizine HCl (Cetirizine Hcl 10 Mg Tablet) 10 mg PO DAILY ELISA Stop: 04/21/24 08:59 Last Admin: 03/22/24 08:06 Dose: 10 mg Cyanocobalamin (Cyanocobalamin (B-12) 500 Mcg Tablet) 1,000 mcg PO DAILY ELISA Stop: 04/21/24 08:59 Last Admin: 03/22/24 08:06 Dose: 1,000 mcg Heparin Sodium (Porcine) (Heparin Sod 5,000 Unit/0.5 Ml Vial) 5,000 units SQ Q12 ELISA Stop: 04/21/24 08:59 Sodium Chloride (Nss) 1,000 mls @ 50 mls/hr IV .Q20H ELISA Stop: 03/23/24 01:26 Last Admin: 03/22/24 02:23 Dose: 50 mls/hr Labetalol HCl (Labetalol Hcl Iv 5 Mg/Ml 20ml) 10 mg IV Q4H PRN PRN Reason: Hypertension Stop: 04/21/24 01:26 Lisinopril (Lisinopril 10 Mg Tab) 10 mg PO QAM ELISA Stop: 04/21/24 08:59 Last Admin: 03/22/24 08:06 Dose: 10 mg Nitroglycerin (Nitroglycerin Sl 0.4 Mg/Tab Tab) 0.4 mg SL Q5M PRN PRN Reason: Chest Pain Stop: 04/21/24 01:26 Ondansetron HCl (Ondansetron Inj 2 Mg/Ml 2 Ml Vial) 4 mg IV Q6H PRN PRN Reason: Nausea Stop: 04/21/24 01:26 Last Admin: 03/22/24 07:48 Dose: 4 mg Pantoprazole Sodium (Pantoprazole 40 Mg Tab) 40 mg PO DAILY [facility] Stop: 04/21/24 08:59 Last Admin: 03/22/24 08:06 Dose: 40 mg Tramadol HCl (Tramadol Hcl 50 Mg Tablet) 50 mg PO HS PRN PRN Reason: Severe Pain (Scale Score 7-10) Stop: 04/21/24 01:26 Last Admin: 03/22/24 08:05 Dose: 50 mg
[2024-03-22] MEDS: HEPARIN SOD 5,000 UNIT/0.5 ML VIAL SQ SCH (08:55)
--- NOTE | 2024-03-22 11:14 | CT Scan Report ---
ABDOMEN AND PELVIS CT WITHOUT CONTRAST CT DOSE: 940.49 mGy.cm HISTORY: Acute right lower quadrant abdominal pain rlq abd pain TECHNIQUE: Multiaxial CT images of the abdomen and pelvis were performed without contrast. A dose lo wering technique was utilized adhering to the principles of ALARA. COMPARISON STUDY: 03/04/2024 FINDINGS: Cardiomegaly. Calcified granulomata of the left lower lobe with mild subsegmental bibasilar atelectasis. There is no pneumatosis or pneumoperitoneum. Unremarkable spleen, moderately atrophic p ancreas and adrenal glands. The gallbladder is distended. Unremarkable liver. Cysts of the kidneys me asuring up to 2.5 cm is on the left and 1.1 cm on the right. No ureteral calculi or hydronephrosis. U nremarkable urinary bladder. Hysterectomy. Mesenteric lymph nodes measuring up to 10 mm, similar to p rior suggestive of a chronic mesenteric radiculitis. Moderate sized hiatal hernia. Duodenal diverticulum. Colonic diverticulosis without acute diverticuli tis. Scattered colonic air-fluid levels. Unremarkable terminal ileum. Not position of the appendix. N o secondary signs of acute appendicitis. Degenerative changes of the spine with multilevel central ca nal stenosis. No acute fracture identified. IMPRESSION: 1. No acute intra-abdominal or intrapelvic abnormality. 2. Colonic diverticulosis without acute diverticulitis. 3. Moderate-sized hiatal hernia. 4. Incidental findings as above. ACT 112: Negative or not required by law. The above report was generated using voice recognition software. It may contain grammatical, syntax o r spelling errors. Electronically signed by: Vincent Deal M.D. 03/22/2024 11:13 AM
[2024-03-22 11:26] LABS: BUN Creatinine Ratio 19.5 (10-20); Calcium 9.1 mg/dl (8.6-10.3); Potassium 3.8 mmol/L (3.5-5.1)
--- NOTE | 2024-03-22 12:43 | Electrocardiogram Report ---
Test Reason : Blood Pressure : */* mmHG Vent. Rate : 89 BPM Atrial Rate : 89 BPM P-R Int : 206 ms QRS Dur : 86 ms QT Int : 352 ms P-R-T Axes : 83 7 58 degrees QTcB Int : 428 ms Poor data quality, interpretation may be adversely affected Normal sinus rhythm Normal ECG When compared with ECG of 26-Nov-2022 08:22, No significant change was found Confirmed by Shan Topete ([id number]) on 03/22/2024 12:43:27 PM Referred By: REFERRED SELF Confirmed By: Shan Topete
[2024-03-22 17:19] LABS: BUN Creatinine Ratio 19.6 (10-20); Creatinine Clr Calc Pharmacy 35.8 ml/min; Potassium 3.9 mmol/L (3.5-5.1)
[2024-03-22 23:18] LABS: BUN Creatinine Ratio 20.7 (10-20); Calcium 8.6 mg/dl (8.6-10.3); Creatinine Clr Calc Pharmacy 32.9 ml/min
[2024-03-23 06:40] LABS: Hematocrit (blood only) 29.8 % (37.0-47.0); Mean Corpuscular Hemoglobin 30.2 pg (25.0-34.0); Mean Corpuscular Hgb Conc 33.6 g/dL (32.0-36.0); Mean Platelet Volume 8.7 fL (9.4-12.4); Platelet Count 242 K/uL (130-400); RDW Coefficient of Variation 13.6 % (11.5-14.5); RDW Standard Deviation 44.5 fL (36.4-46.3); Red Blood Count 3.31 M/uL (4.20-5.40); White Blood Count 8.09 K/ul (4.8-10.8)
[2024-03-23 07:13] LABS: Magnesium 2.4 mg/dl (1.7-2.4); Phosphorus 3.2 mg/dl (2.5-4.9)
--- NOTE | 2024-03-23 08:58 | Nephrology Progress Note ---
Date of Service March 23, 2024 Assessment & Plan (1) Hyponatremia: Plan: euvolemic hyponatremia versus mildly hypovolemic on presentation and euvolemic. presented w/ sNa 125 1900 on 03/22. up to 129 w/in 12 hours. 132 this am. target sNa is no more than 138 by tomorrow AM. -no current fluid restriction -could do daily BMP now -for now will hold NS; not on FR -maintain eukalemia -control pain which is a powerful ADH stimulator phoebe R knee >when taking po more reliably, recommend 1 gm/ kg protein intake consistently ordered prn miralax and one time colace dose (2) High blood pressure: Plan: improved/ at acceptable range after first few hours of HTN urgency -stopped NS -cont lisinopril 10 mg daily (OP dose) >>renal function a bit worse today > ? w/ resuming lisinopril (3) Hematuria: Plan: chronic microhematuria; OP issue; keep [facility] urology f/u Admission and Anticipated Discharge Date Admission Date: March 21, 2024 Subjective no n/v or voiding sx. c/o mild constipation. no sob; getting up w/ asst to toilet Review of Systems 2 Review of Systems: All systems reviewed & are unremarkable except as noted in Subjective Physical Exam 2 Constitutional: well developed and well nourished Eyes: EOM intact bilaterally ENMT: Ears: no external ear abnormality Nose: no external nose abnormality Mouth: + dry oral mucous membranes Neck: no nuchal rigidity Respiratory: normal respiratory effort Auscultation: + diminished lung sounds Cardiovascular: RRR, no murmur, no edema Gastrointestinal (Abdomen): Inspection/Auscultation: normal bowel sounds P ercussion/Palpation: abdomen soft; abdomen nontender Musculoskeletal: Extremities: extremities normal to inspection (including R knee w/o heat, redness, focal pain, or fluctuance) and strength 5/5 throughout Skin: no rashes, warm and dry Psychiatric: Orientation: alert and oriented x 3 (?insight) Results & Data Vital Signs (Past 12 Hours) Vital Signs Temp Pulse Resp BP Pulse Ox O2 Del Method 03/23/24 08:22 36.6 C 71 22 111/71 94 Room Air 03/23/24 02:47 36.5 C 68 18 125/74 96 Room Air 03/22/24 22:41 36.6 C 84 18 131/68 95 Room Air Laboratory Results 03/23/24 05:57 03/23/24 05:57
[2024-03-23 09:02] LABS: BUN Creatinine Ratio 17.5 (10-20); Calcium 8.7 mg/dl (8.6-10.3); Creatinine Clr Calc Pharmacy 26.6 ml/min; Potassium 4.2 mmol/L (3.5-5.1)
[2024-03-23] MEDS ORDERED: POLYETHYLENE (MIRALAX) 17 GM PACK PO PRN (11:23)
--- NOTE | 2024-03-23 11:31 | Hospitalist Progress Note ---
Date of Service March 23, 2024 Assessment & Plan (1) Hyponatremia: Plan: 88 yo F w/ hx of hyperlipidemia, chronic sinusitis, hypertension, GERD, CKD stage III, osteoporosis, hard of hearing, rheumatoid arthritis involving multiple sites with positive rheumatoid factor who lives at home with her daughter and ambulates with a walker comes because of weakness and nausea and found to have hyponatremia. As per daughters patient since last 3 days was feeling sick to the stomach and weak. Nauseous but no vomiting. No diarrhea. Normal bowel movements. Micturating okay. No burning micturition. No fevers. Complains of some abdominal discomfort in the right lower quadrant. Denies any chest pain. No shortness of breath. No headache. No runny nose or sore throat. No difficulty swallowing. Alert and oriented x 3. Resting comfortably and hemodynamically stable. Complains of back pain for sitting in the chair for long time. Hyponatremia Sodium 125 Maxide hold on admission Received 1 L fluid in the ER continued with NS 50 mL/h on admission Slow correction BMP every 6 hours initially Urine osmolality, serum osmolality and urine sodium levels Telemetry Nephrology consulted for further recommendation Na improved now at 132 Hypertensive urgency IV labetalol as needed Holding Maxzide with potassium supplement Lisinopril for now and monitor BP now on lower side Abdominal pain, nausea - resolved CT abd/pelvis obtained - 1. No acute intra-abdominal or intrapelvic abnormality. 2. Colonic diverticulosis without acute diverticulitis. 3. Moderate-sized hiatal hernia. Currently feeling improved. Reviewed with pt and her sisters at the bedside yesterday unremarkable CT abd/pelvis - cont. PPI - pt has been taking tylenol, advil for arthritis pain, then switched to tramadol by pcp - 03/23 - pt says now she feels much better, denies any more abd. pain, had a BM earlier today, and she is eating Hyperlipidemia On statin GERD On omeprazole CKD stage III Creatinine 1.04 -> now 1.37 Nephrology following DVT prophylaxis Heparin subcu Disposition Telemetry Full code per admitting provider's discussion with the daughter Admission and Anticipated Discharge Date Admission Date: March 21, 2024 Subjective Pt seen in follow up of weakness, nausea, hyponatremia Reported abdominal discomfort and CT obtained yesterday - unremarkable Cr up at 1.37 today Na 132 this AM Currently sitting up in chair in NAD, eating lunch, overall reports feeling better and denies any abdominal pain. Had BM earlier today Daughters presents at the bedside yesterday and updated at that time. Pt denies fever, chills, chest pain, shortness of breath. Reports arthritis pain in her knee. taking tylenol, advil at home then started on tramadol per pcp. Review of Systems Review of Systems: All systems reviewed & are unremarkable except as noted in Subjective Physical Exam Physical Exam: General- WD/WN elderly F in NAD Head- atraumatic Eyes- PERRL. Neck- supple, no JVD. Lungs- clear to auscultation no wheezing or crackles. Heart- regular rate and rhythm; no murmur Abdomen- normal bowel sounds, soft, mild lower quadrants tenderness - now improved/ resolved, no rigidity, no distension Extremities- trace pretibial edema present , no erythema seen Neuro- alert, oriented x 3; PERRL, no facial palsy; no dysarthria; moves extremities Results & Data Results & Data Vital Signs (Past 12 Hours) Vital Signs Temp Pulse Pulse Resp BP Pulse Ox O2 Del Method 03/23/24 08:22 36.6 C 71 22 111/71 94 Room Air 03/23/24 07:00 68 03/23/24 02:47 36.5 C 68 18 125/74 96 Room Air Laboratory Results 03/23/24 03/22/24 03/22/24 Range/Units 05:57 22:47 16:48 WBC 8.09 (4.8-10.8) K/ul RBC 3.31 L (4.20-5.40) M/uL Hgb 10.0 L (12.0-16.0) g/dl Hct 29.8 L (37.0-47.0) % MCV 90.0 (80.0-100.0) fL MCH 30.2 (25.0-34.0) pg MCHC 33.6 (32.0-36.0) g/dL RDW Std Deviation 44.5 (36.4-46.3) fL RDW Coeff of Gera 13.6 (11.5-14.5) % Plt Count 242 (130-400) K/uL MPV 8.7 L (9.4-12.4) fL Sodium 132 L 128 L 130 L (136-145) mmol/L Potassium 4.2 4.0 3.9 (3.5-5.1) mmol/L Chloride 95 L 96 L 95 L (98-107) mmol/L Carbon Dioxide 27 27 27 (21-32) mmol/L Anion Gap 10 5 8 (3-11) BUN 24 H 23 20 (6-23) mg/dl Creatinine 1.37 H 1.11 1.02 (0.6-1.2) mg/dl Est Cr Clr Drug Dosing 26.6 32.9 35.8 ml/min eGFR 37.60 48.41 53.58 BUN/Creatinine Ratio 17.5 20.7 H 19.6 (10-20) Glucose 87 113 H 123 H (70-99(Fasting)) mg/dl Calcium 8.7 8.6 9.0 (8.6-10.3) mg/dl Phosphorus 3.2 (2.5-4.9) mg/dl Magnesium 2.4 (1.7-2.4) mg/dl Misc Micro Test 03/21/24 Range/Units 18:37 WBC (4.8-10.8) K/ul RBC (4.20-5.40) M/uL Hgb (12.0-16.0) g/dl Hct (37.0-47.0) % MCV (80.0-100.0) fL MCH (25.0-34.0) pg MCHC (32.0-36.0) g/dL RDW Std Deviation (36.4-46.3) fL RDW Coeff of Gera (11.5-14.5) % Plt Count (130-400) K/uL MPV (9.4-12.4) fL Sodium (136-145) mmol/L Potassium (3.5-5.1) mmol/L Chloride (98-107) mmol/L Carbon Dioxide (21-32) mmol/L Anion Gap (3-11) BUN (6-23) mg/dl Creatinine (0.6-1.2) mg/dl Est Cr Clr Drug Dosing ml/min eGFR BUN/Creatinine Ratio (10-20) Glucose (70-99(Fasting)) mg/dl Calcium (8.6-10.3) mg/dl Phosphorus (2.5-4.9) mg/dl Magnesium (1.7-2.4) mg/dl Misc Micro Test Pending Medications Administered Current Inpatient Medications Acetaminophen (Acetaminophen 325 Mg Tab) 650 mg PO Q4H PRN PRN Reason: Pain or Fever Stop: 04/21/24 01:26 Last Admin: 03/22/24 19:53 Dose: 650 mg Atorvastatin Calcium (Atorvastatin 40 Mg Tab) 40 mg PO DAILY ELISA Stop: 04/21/24 08:59 Last Admin: 03/23/24 08:36 Dose: 40 mg Baclofen (Baclofen 10 Mg Tab) 10 mg PO BID ELISA Stop: 04/21/24 08:59 Last Admin: 03/23/24 08:39 Dose: 10 mg Calcium/Vitamin D (Calcium 600mg + Vit D 400 Iu Tab) 1 tab PO DAILY ELISA Stop: 04/21/24 08:59 Last Admin: 03/23/24 08:36 Dose: 1 tab Cetirizine HCl (Cetirizine Hcl 10 Mg Tablet) 10 mg PO DAILY ELISA Stop: 04/21/24 08:59 Last Admin: 03/23/24 08:36 Dose: 10 mg Cyanocobalamin (Cyanocobalamin (B-12) 500 Mcg Tablet) 1,000 mcg PO DAILY [facility] Stop: 04/21/24 08:59 Last Admin: 03/23/24 08:36 Dose: 1,000 mcg Heparin Sodium (Porcine) (Heparin Sod 5,000 Unit/0.5 Ml Vial) 5,000 units SQ Q12 ELISA Stop: 04/21/24 08:59 Last Admin: 03/23/24 08:40 Dose: 5,000 units Labetalol HCl (Labetalol Hcl Iv 5 Mg/Ml 20ml) 10 mg IV Q4H PRN PRN Reason: Hypertension Stop: 04/21/24 01:26 Lisinopril (Lisinopril 10 Mg Tab) 10 mg PO QAM [facility] Stop: 04/21/24 08:59 Last Admin: 03/23/24 08:36 Dose: 10 mg Nitroglycerin (Nitroglycerin Sl 0.4 Mg/Tab Tab) 0.4 mg SL Q5M PRN PRN Reason: Chest Pain Stop: 04/21/24 01:26 Ondansetron HCl (Ondansetron Inj 2 Mg/Ml 2 Ml Vial) 4 mg IV Q6H PRN PRN Reason: Nausea Stop: 04/21/24 01:26 Last Admin: 03/22/24 07:48 Dose: 4 mg Pantoprazole Sodium (Pantoprazole 40 Mg Tab) 40 mg PO DAILY ELISA Stop: 04/21/24 08:59 Last Admin: 03/23/24 08:36 Dose: 40 mg Polyethylene Glycol (Polyethylene (Miralax) 17 Gm Pack) 17 gm PO DAILY PRN PRN Reason: Constipation Stop: 04/22/24 11:22 Tramadol HCl (Tramadol Hcl 50 Mg Tablet) 50 mg PO HS PRN PRN Reason: Severe Pain (Scale Score 7-10) Stop: 04/21/24 01:26 Last Admin: 03/22/24 08:05 Dose: 50 mg
[2024-03-23] MEDS: DOCUSATE SODIUM 100 MG CAP PO ONE (14:02)
[2024-03-24 03:48] VITALS: TEMP 98.8
[2024-03-24 07:42] VITALS: BP 116/71; RESP 20; O2SAT 94
--- NOTE | 2024-03-24 09:21 | Nephrology Progress Note ---
Date of Service March 24, 2024 Assessment & Plan (1) Hyponatremia: Plan: euvolemic hyponatremia versus mildly hypovolemic on presentation and euvolemic. presented w/ sNa 125 1900 on 03/22. up to 129 w/in 12 hours. 132 this am. target sNa is no more than 138 by tomorrow AM. -no current fluid restriction -could do daily BMP now -for now will hold NS; not on FR -maintain eukalemia -control pain which is a powerful ADH stimulator phoebe R knee >when taking po more reliably, recommend 1 gm/ kg protein intake consistently ordered prn miralax and one time colace dose (2) High blood pressure: Plan: improved/ at acceptable range after first few hours of HTN urgency; controlled now -cont lisinopril 10 mg daily (OP dose) (3) Hematuria: Plan: chronic microhematuria; OP issue; keep [facility] [place] f/u Admission and Anticipated Discharge Date Admission Date: March 21, 2024 Subjective no acute interval clinical events. Physical Exam Constitutional: well developed and well nourished Eyes: EOM intact bilaterally ENMT: Ears: no external ear abnormality Nose: no external nose abnormality Mouth: + dry oral mucous membranes Neck: no nuchal rigidity Respiratory: normal respiratory effort Auscultation: + diminished lung sounds Cardiovascular: RRR, no murmur, no edema Gastrointestinal (Abdomen): Inspection/Auscultation: normal bowel sounds Percussion/Palpation: abdomen soft; abdomen nontender Musculoskeletal: Extremities: extremities normal to inspection (including R knee w/o heat, redness, focal pain, or fluctuance) and strength 5/5 throughout Skin: no rashes, warm and dry Psychiatric: Orientation: alert and oriented x 3 (?insight) Results & Data Vital Signs (Past 12 Hours) Vital Signs Temp Pulse Pulse Resp BP Pulse Ox O2 Del Method 03/24/24 07:42 37.1 C 68 20 116/71 94 Room Air 03/24/24 05:41 66 03/24/24 03:47 37.1 C 80 18 104/58 L 96 Room Air 03/23/24 23:35 37.5 C 87 18 117/56 L 95 Room Air 03/23/24 23:00 83
[2024-03-24 10:50] LABS: Hematocrit (blood only) 30.6 % (37.0-47.0); Hemoglobin 10.2 g/dl (12.0-16.0); Mean Corpuscular Hemoglobin 29.8 pg (25.0-34.0); Mean Corpuscular Hgb Conc 33.3 g/dL (32.0-36.0); Mean Corpuscular Volume 89.5 fL (80.0-100.0); Mean Platelet Volume 8.7 fL (9.4-12.4); Platelet Count 241 K/uL (130-400); RDW Coefficient of Variation 13.7 % (11.5-14.5); RDW Standard Deviation 44.9 fL (36.4-46.3); Red Blood Count 3.42 M/uL (4.20-5.40); White Blood Count 6.55 K/ul (4.8-10.8)
[2024-03-24 10:59] LABS: BUN Creatinine Ratio 24.8 (10-20); Calcium 8.9 mg/dl (8.6-10.3); Creatinine Clr Calc Pharmacy 32.4 ml/min; Magnesium 2.1 mg/dl (1.7-2.4); Phosphorus 2.5 mg/dl (2.5-4.9)
--- NOTE | 2024-03-24 12:43 | Discharge Summary ---
Date of Service March 24, 2024 Admission HPI Per Admitting Provider 88-year-old female with past medical history significant for hyperlipidemia, chronic sinusitis, hypertension, GERD, CKD stage III, osteoporosis, hard of hearing, rheumatoid arthritis involving multiple sites with positive rheumatoid factor who lives at home with her daughter and ambulates with a walker comes because of weakness and nausea and found to have hyponatremia. As per daughters patient since last 3 days was feeling sick to the stomach and weak. Nauseous but no vomiting. No diarrhea. Normal bowel movements. Micturating okay. No burning micturition. No fevers. Complains of some abdominal discomfort in the right lower quadrant. Denies any chest pain. No shortness of breath. No headache. No runny nose or sore throat. No difficulty swallowing. Alert and oriented x 3. Resting comfortably and hemodynamically stable. Complains of back pain for sitting in the chair for long time. Past medical history. As mentioned above Past surgical history. Colonoscopy. Simple hemorrhoidectomy. Bilateral cataracts. Total hysterectomy. Social history. . No smoking. No alcohol use. No drug use. Family history. Mother had renal failure. Daughter has diabetes. Daughter has rheumatoid arthritis. Son has CA chest. Brother had PR. Brother had RA. Sister has diabetes and valve replacement. Admission Exam Per Admitting Provider General- Not in distress Head- atraumatic Eyes- PERRL. ENT- oropharynx clear Neck- supple, no JVD. Lungs- clear to auscultation no wheezing or crackles. Heart- regular rate and rhythm; no murmur, no gallop. Abdomen- normal bowel sounds, soft, mild RLQ tenderness, no rigidity, no distension Extremities- trace pretibial edema present , no erythema seen Neuro- alert, oriented x 3; PERRL, no facial palsy; no dysarthria; moves extremities Principal Diagnosis Hyponatremia Nausea, weakness Discharge Exam General- WD/WN elderly F in NAD Head- atraumatic Eyes- PERRL. Neck- supple, no JVD. Lungs- clear to auscultation no wheezing or crackles. Heart- regular rate and rhythm; no murmur Abdomen- normal bowel sounds, soft, no tenderness to palp - resolved, no rigidity, no distension Extremities- trace pretibial edema present , no erythema seen Neuro- alert, oriented x 3; PERRL, no facial palsy; no dysarthria; moves extremities Discharge Data Allergies Allergy/AdvReac Type Severity Reaction Status Date / Time nitrofurantoin Allergy Intermediate all over Verified 03/26/23 11:08 pruritic rash trimethoprim Allergy Intermediate Rash Verified 03/26/23 11:08 Sulfa (Sulfonamide AdvReac Severe Gastrointestinal Verified 03/26/23 11:08 Antibiotics) Upset Consultations 03/21/24 23:03 ED Decision to Admit Stat 03/22/24 08:00 Consult Nephrology Routine Ordered Studies 03/22/24 07:03 CT abd pelvis wo con Urgent FINDINGS: Cardiomegaly. Calcified granulomata of the left lower lobe with mild subsegmental bibasilar atelectasis. There is no pneumatosis or pneumoperitoneum. Unremarkable spleen, moderately atrophic pancreas and adrenal glands. The gallbladder is distended. Unremarkable liver. Cysts of the kidneys measuring up to 2.5 cm is on the left and 1.1 cm on the right. No ureteral calculi or hydronephrosis. Unremarkable urinary bladder. Hysterectomy. Mesenteric lymph nodes measuring up to 10 mm, similar to prior suggestive of a chronic mesenteric radiculitis. Moderate sized hiatal hernia. Duodenal diverticulum. Colonic diverticulosis without acute diverticulitis. Scattered colonic air-fluid levels. Unremarkable terminal ileum. Not position of the appendix. No secondary signs of acute appendicitis. Degenerative changes of the spine with multilevel central canal stenosis. No acute fracture identified. IMPRESSION: 1. No acute intra-abdominal or intrapelvic abnormality. 2. Colonic diverticulosis without acute diverticulitis. 3. Moderate-sized hiatal hernia. 4. Incidental findings as above. Hospital Course (1) Hyponatremia: 88 yo F w/ hx of hyperlipidemia, chronic sinusitis, hypertension, GERD, CKD stage III, osteoporosis, hard of hearing, rheumatoid arthritis involving multiple sites with positive rheumatoid factor who lives at home with her daughter and ambulates with a walker comes because of weakness and nausea and found to have hyponatremia. As per daughters patient since last 3 days was feeling sick to the stomach and weak. Nauseous but no vomiting. No diarrhea. Normal bowel movements. Micturating okay. No burning micturition. No fevers. Complains of some abdominal discomfort in the right lower quadrant. Denies any chest pain. No shortness of breath. No headache. No runny nose or sore throat. No difficulty swallowing. Alert and oriented x 3. Resting comfortably and hemodynamically stable. Complains of back pain for sitting in the chair for long time. Hyponatremia Sodium 125 Maxide held on admission Received 1 L fluid in the ER continued with NS 50 mL/h on admission Slow correction BMP every 6 hours initially Urine osmolality, serum osmolality and urine sodium levels Telemetry Nephrology consulted for further recommendation Na improved now at 131/132 Discussed DC recs w/ nephrology Stop triamterene/ HCTZ. Continue lisinopril High protein diet, including protein shakes. 2L FR, protein shakes do not count towards this BMP ordered by PCP weekly x3 Nephrology follow up Ucultx prelim - posit for C. glabrata - discussed w/ ID over TT - no need to treat Hypertensive urgency- resolved stopped Maxzide with potassium supplement cont. Lisinopril monitor BP Abdominal pain, nausea - resolved CT abd/pelvis obtained - 1. No acute intra-abdominal or intrapelvic abnormality. 2. Colonic diverticulosis without acute diverticulitis. 3. Moderate-sized hiatal hernia. Currently feeling much improved. Abd. pain and nausea resolved - pt had a BM and tolerating PO diet - cont. PPI - pt has been taking tylenol, advil for arthritis pain, then switched to tramadol by pcp - follow up for arthritis pain w/ pcp Hyperlipidemia On statin GERD On omeprazole CKD stage III Creatinine 1.1 Nephrology following Total Time Total Time Spent Total Time Spent (In Minutes): 40 Discharge Plan Discharge Items Patient Disposition: Home - Home Health Services Reason For Visit: HYPONATREMIA, WEAKNESS Discharge Diagnosis: Hyponatremia Nausea, weakness Condition on Discharge: Fair Activity: Per Instructions section Non-emergency contact: Primary Care Provider and Delivery Stock Clerk Call non-emergency contact if: you have any medication questions and your symptoms worsen Follow-up/Referrals: Sid Roche MD [Primary Care Provider] - (Date & Time 03/30/2024 9:40 AM Provider: Sid Roche MD [facility] ) Diet: Heart Healthy Fluids: 2000ml (8 cups) Addtl Attending Provider Instructions: Follow up with your primary care doctor within 1 week. The appointment was scheduled for you for 03/30/2024. You will also need to follow up with nephrology. Stop taking triamterene/hydrochlorothiazide. Continue taking lisinopril 10 mg daily. Monitor your blood pressure. It is recommended that you have a high protein diet and you can also utilize protein shakes to achieve this. Limit fluid intake to 2L a day however protein shakes do not count towards this. You will need blood work - BMP - to check your sodium levels and kidney function. Your primary care doctor will order this weekly x3. Pending Studies at Discharge: Yes Studies:: final urine cultx Stand-Alone Forms: My [facility] [place], Smoking Cessation Medications and DC Order Prescriptions: New lisinopril 10 mg Tablet 10 mg PO QAM Qty: 30 0RF Continued atorvastatin 40 mg tablet 40 mg PO DAILY cetirizine 10 mg tablet 10 mg PO DAILY cyanocobalamin (vitamin B-12) 1,000 mcg tablet 1,000 mcg PO DAILY tramadol 50 mg tablet 50 mg PO HS PRN (Reason: Severe Pain (Scale Score 7-10)) methenamine hippurate 1 gram tablet 1 g PO BID baclofen 10 mg tablet 10 mg PO BID omeprazole 20 mg capsule,delayed release(DR/EC) 20 mg PO DAILY calcium carbonate-vitamin D3 [Calcium + D] 600 mg-5 mcg (200 unit) Tablet 1 tab PO DAILY Discontinued triamterene-hydrochlorothiazid 37.5-25 mg tablet 1 tab PO DAILY potassium chloride 20 mEq Tablet Extended Release 20 meq PO DAILY Discharge Orders: Discharge Order (Routine); Ordered 03/24/24 Ordered By: Oscar Barrera Admission Data Admit Date/Time: 03/21/24 23:41 Attending Provider: Oscar Barrera Admit Provider: Leander Lewis Primary Care Provider: Sid Roche Other Providers: Leander Lewis; Velia Valera; [facility],Home Healthcare
--- NOTE | 2024-03-24 14:52 | Communication Note ---
Date of Service: March 24, 2024 pt for d/c today before I will see her d/t other clinical obligations. had mild-moderate hyponatremia this admission; none historically as OP in [facility] but several occasions in [facility] labs Neph d/c recs -hold maxzide -continue lisinopril -2L FR toward which protein shakes do not count -encourage protein intake > aim for 65 gm daily -PCP should check BMP weekly x 3 and monitor BP -no OP nephro f/u needed at this time Above reviewed w/ Dr Barrera via [employer]Text.
[2024-03-24 15:20] VITALS: PULSE 109
== END 2024-03-24 18:01 | disposition home health service (06) | DRG 641 ==
LOC: ED 17:29 → 2E 23:41 → 2N 03-23 18:58

== ENCOUNTER 2024-09-12 18:48 | Inpatient (IN) ==
--- NOTE | 2024-09-12 19:17 | Emergency Department Note ---
Impression & Plan Abdominal pain, Nausea, Hyponatremia, Urinary tract infection, Esophageal hiatal hernia ED Provider Note NAME: APRIL LOVE AGE: 89 SEX: F : 1935 ARRIVES VIA: Walk-In INFORMANT: Patient ED PROVIDER(S): Jj Jules DO CHIEF COMPLAINT: Abdominal pain and nausea HPI: Patient is a 89-year-old female with a past medical history of nausea and hyponatremia who presents to the ER for abdominal pain and and nausea. Symptoms started about 2 to 3 days ago. Have been worsening. No vomiting. She denies any dysuria, urgency or frequency. No headache or change in vision. No chest pain or shortness of breath. No previous abdominal surgeries. She notes she has not had a bowel movement the past 3 days. She has taken several medications per the daughter who provides additional history. She took these meds today. She notes that eating and drinking does not really change her symptoms. ADDITIONAL HISTORY OBTAINED: Daughter provides additional history and notes that they went to see the PCP today who obtained blood work and a urine but they got no results and nothing for nausea. Chronic Medical/Social Conditions Affecting Care: Per HPI PAST MEDICAL HISTORY:See Below PAST SURGICAL HISTORY:See Below FAMILY HISTORY:See Below SOCIAL HISTORY:See Below HOME MEDICATIONS:See Below ALLERGIES:See Below VITALS:See Below PHYSICAL EXAMINATION: GENERAL: Sitting up in bed, alert, well appearing, well nourished, no distress, non-toxic EYE EXAM: normal conjunctiva. OROPHARYNX: mucous membranes are moist LUNGS: Clear to auscultation. Normal chest wall mechanics HEART: no murmurs, S1 normal and S2 normal ABDOMEN: abdomen soft, non-tender, normo-active bowel sounds, no masses, no rebound or guarding. UPPER EXTREMITIES: upper extremities are grossly normal. LOWER EXTREMITIES: No pitting edema. NEURO EXAM: Normal sensorium, cranial nerves II-XII grossly intact, normal speech, no gross weakness of arms, no gross weakness of legs. MEDICAL DECISION MAKING: Patient is an 89-year-old female who ER for the above-stated complaint. IV was established and blood work is obtained. Labs show no significant leukocytosis. Mild anemia 11.2. BMP with mild hyponatremia 131. LFTs and bilirubin was remarkable. Lipase is normal. TSH at 1.1. UA with leuks and whites. Patient was given IV Zofran and IV Rocephin for the UTI. CT abdomen pelvis was obtained and showed possible twisting of the hiatal hernia. Consulted general surgery and patient was evaluated by Hanh. She recommended admission and they will follow. Discussed the case with the hospitalist for further evaluation management treatment. Consults/Care Managements Discussions: Per [facility] Triage Nursing notes reviewed. Limited review of prior medical records performed Vital Signs: reviewed and remarkable for HTN and tachy Differential diagnosis: Differential diagnoses includes but is not limited to gastritis, peptic ulcer disease, GERD, gallbladder disease, pancreatitis, small bowel obstruction, appendicitis, diverticulitis, hernia, urinary tract infection, torsion, perforation, trauma, infectious. ER treatment provided: See below Diagnostics interpreted by me include EKG and cardiac monitoring as listed below: -Cardiac Monitoring: An order was placed for continuous cardiac monitoring. The monitor shows a rate of 90 with sinus rhythm. -ECG: none -Laboratory studies:Interpreted by me as stated above in MDM and shown below. Imaging studies: Xrays: As interpreted by me:none CTs show: CT abdomen pelvis per my pleurae interpretation showed a distended gallbladder CT abdomen per radiologist described above Procedures:none Critical Care: None Past Med/Surg History Problem List (Updated 09/13/24 @ 00:21 by Jj Jules DO) Esophageal hiatal hernia (Acute) Abdominal pain (Acute) Acute hyponatremia (Acute) Nausea (Acute) Weakness (Acute) Hyponatremia (Acute) Pain in right lower leg Cystitis (Acute) Essential hematuria (Acute) Recurrent UTI (Acute) Urinary tract infection, acute (Acute) Hematuria (Acute) Dysuria (Acute) Urinary tract infection (Acute) Medical History UTI (urinary tract infection) High blood pressure Surgical History H/O: hysterectomy No significant past surgical history Family History Daughter Diabetes Nephrolithiasis Other Family history non-contributory Social History Smoking Status: Never smoker Second Hand Exposure: No; Do You Dip or Chew Tobacco: No; Hx Alcohol Use: No Hx Substance Use: No Preferred Language: Azerbaijani Communication Ability: Effective Choral Director Required: No Beliefs That Will Affect Care: None Current Living Situation: Family Current Living Situation Comment: lives with daughter Feels Safe at Home: Yes Assistive Devices: Walker and Wheelchair Allergies Allergies Allergy/AdvReac Type Severity Reaction Status Date / Time nitrofurantoin Allergy Intermediate all over Verified 05/08/24 13:28 pruritic rash trimethoprim Allergy Intermediate Rash Verified 05/08/24 13:28 Sulfa (Sulfonamide AdvReac Severe Gastrointestinal Verified 05/08/24 13:28 Antibiotics) Upset Home Meds Home Medications Medication Instructions Recorded Confirmed atorvastatin 40 mg tablet 40 mg PO DAILY 03/21/24 09/12/24 calcium 600 mg (as 1 tab PO DAILY 03/21/24 09/12/24 carbonate)-vitamin D3 5 mcg (200 unit) tablet cetirizine 10 mg tablet 10 mg PO DAILY 03/21/24 09/12/24 cyanocobalamin (vitamin B-12) 1,000 mcg PO DAILY 03/21/24 09/12/24 1,000 mcg tablet omeprazole 20 mg capsule,delayed 20 mg PO DAILY 03/21/24 09/12/24 release tramadol 50 mg tablet 50 mg PO HS PRN Severe Pain (Scale 03/21/24 09/12/24 Score 7-10) fluconazole 150 mg tablet 150 mg PO ONCE 09/12/24 09/12/24 Previous Rx's Medication Instructions Recorded lisinopril 10 mg tablet 10 mg PO QAM #30 tabs 03/24/24 methenamine hippurate 1 gram tablet 1 g PO BID #90 tabs 07/13/24 Results & Data (ED) Vital Signs Vital Signs - 24 hr 09/12/24 18:50 09/12/24 20:49 09/12/24 22:00 Temperature 36.7 C Temperature Source Temporal Artery Scan Pulse Rate 98 H Pulse Rate [Apical] 99 H 115 H Pulse Rhythm [Apical] Regular Pulse Strength [Apical] Normal Respiratory Rate 18 18 18 Respiratory Effort / Characteristics Non-Labored Spontaneous Non-Labored Spontaneous Respiratory Depth Normal Normal Respiratory Pattern Regular Regular Blood Pressure 191/96 H Blood Pressure [Left Arm] 184/100 H 173/103 H Blood Pressure Mean 127 Blood Pressure Mean [Left Arm] 128 126 Blood Pressure Position Sitting Blood Pressure Position [Left Arm] Semi-fowlers Pulse Oximetry 96 90 93 Oxygen Delivery Method Room Air Room Air Room Air Sepsis Recent Fever Within 48 Hours No Sepsis New/Unexplained Change in Mental Status N/A Sepsis Action Taken by Nursing No Action Required 09/12/24 22:59 09/12/24 23:00 09/12/24 23:34 Temperature Temperature Source Pulse Rate 111 H 113 H Pulse Rate [Apical] 113 H Pulse Rhythm [Apical] Regular Pulse Strength [Apical] Normal Respiratory Rate 18 Respiratory Effort / Characteristics Non-Labored Spontaneous Respiratory Depth Normal Respiratory Pattern Regular Blood Pressure 156/87 H Blood Pressure [Left Arm] 156/87 H Blood Pressure Mean Blood Pressure Mean [Left Arm] 110 Blood Pressure Position Blood Pressure Position [Left Arm] Lying Pulse Oximetry 91 Oxygen Delivery Method Room Air Sepsis Recent Fever Within 48 Hours Sepsis New/Unexplained Change in Mental Status Sepsis Action Taken by Nursing 09/12/24 23:49 09/13/24 00:10 Temperature Temperature Source Pulse Rate 95 H 96 H Pulse Rate [Apical] Pulse Rhythm [Apical] Pulse Strength [Apical] Respiratory Rate 20 Respiratory Effort / Characteristics Respiratory Depth Respiratory Pattern Blood Pressure 133/96 169/103 H Blood Pressure [Left Arm] Blood Pressure Mean Blood Pressure Mean [Left Arm] Blood Pressure Position Blood Pressure Position [Left Arm] Pulse Oximetry 94 Oxygen Delivery Method Room Air Sepsis Recent Fever Within 48 Hours Sepsis New/Unexplained Change in Mental Status Sepsis Action Taken by Nursing Laboratory Data 09/12/24 19:20 09/12/24 19:20 Lab Results 09/12/24 09/12/24 09/12/24 Range/Units 19:20 19:25 20:44 WBC 6.01 (4.8-10.8) K/ul RBC 3.72 L (4.20-5.40) M/uL Hgb 11.2 L (12.0-16.0) g/dl POC Hgb 11.6 L (12.0-16.0) g/dl Hct 33.3 L (37.0-47.0) % POC Hct 34 L (37-47) % MCV 89.5 (80.0-100.0) fL MCH 30.1 (25.0-34.0) pg MCHC 33.6 (32.0-36.0) g/dL RDW Std Deviation 41.9 (36.4-46.3) fL RDW Coeff of Gera 12.9 (11.5-14.5) % Plt Count 204 (130-400) K/uL MPV 9.2 L (9.4-12.4) fL Immature Gran % (Auto) 0.2 % Neut % (Auto) 72.2 % Lymph % (Auto) 20.0 % [place] % (Auto) 7.2 % Eos % (Auto) 0.2 % Baso % (Auto) 0.2 % Neut # (Auto) 4.35 (1.40-6.50) K/uL Lymph # (Auto) 1.20 (1.20-3.40) K/uL [place] # (Auto) 0.43 (0.11-0.59) K/uL Eos # (Auto) 0.01 (0.00-0.50) K/uL Baso # (Auto) 0.01 (0.00-0.20) K/uL Immature Gran # (Auto) 0.01 (0.01-0.20) K/uL POC Sodium 131 L (135-144) mmol/L Sodium 131 L (136-145) mmol/L POC Potassium 3.9 (3.3-5.0) mmol/L Potassium 3.9 (3.5-5.1) mmol/L POC Chloride 96 L (101-112) mmol/L Chloride 97 L (98-107) mmol/L Carbon Dioxide 25 (21-32) mmol/L POC Total CO2 23 L (24-31) mmol/L Anion Gap 9 (3-11) POC Anion Gap 17.0 (16-25) mmol/L POC BUN 14 (7-18) mg/dl BUN 15 (6-23) mg/dl Creatinine 0.72 (0.6-1.2) mg/dl POC Creatinine 0.8 (0.6-1.3) mg/dl Est Cr Clr Drug Dosing 48.6 ml/min eGFR 80.87 BUN/Creatinine Ratio 20.8 H (10-20) Glucose 150 H (70-99(Fasting)) mg/dl POC Glucose (other) 151 H (70-99) mg/dl Calcium 9.4 (8.6-10.3) mg/dl POC Ioniz Calcium Kalyan 1.18 (1.12-1.32) mmol/l Magnesium 1.7 (1.7-2.4) mg/dl Total Bilirubin 1.4 H (0.2-1.0) mg/dl AST 18 (13-39) U/L ALT 10 (7-52) U/L Alkaline Phosphatase 64 (34-104) U/L Total Protein 7.5 (6.0-8.3) gm/dl Albumin 4.2 (3.4-5.0) gm/dl Globulin 3.3 (2.5-4.0) gm/dl Albumin/Globulin Ratio 1.3 (0.9-2) Lipase 6 L (11-82) U/L TSH 1.154 (0.300-4.500) uIu/ml Urine Color Yellow Urine Appearance Clear (Clear) Urine pH 6.5 (4.5-7.5) Ur Specific Simpson 1.032 H (1.000-1.030) Urine Protein 1+ H (Negative) Urine Glucose (UA) Negative (Negative) Urine Ketones Trace H (Negative) Urine Blood 2+ H (Negative) Urine Nitrite Negative (Negative) Urine Bilirubin Negative (Negative) Urine Urobilinogen Negative (Negative) Ur Leukocyte Esterase 1+ H (Negative) Urine WBC (Auto) 21-50 H (0-5) /hpf Urine RBC (Auto) >20 H (0-2) /hpf U Hyaline Cast (Auto) 0-2 (0-2) /lpf U Epithel Cells (Auto) 0-2 (0-2) /hpf Urine Bacteria (Auto) None Seen (None Seen) Hyaline Casts Present A (None Presnt) /lpf Urine Comment Administered Medications Discontinued Medications Sodium Chloride (Nss) 1,000 mls @ 999 mls/hr IV .Q1H1M ONE Stop: 09/12/24 20:12 Last Infusion: 09/12/24 21:40 Dose: Infused Documented By: Admin: 09/12/24 20:35 Dose: 999 mls/hr Documented By: VIOLA Ceftriaxone Sodium (Rocephin) 2,000 mg in 50 mls @ 100 mls/hr IV NOW STA Stop: 09/12/24 21:41 Last Infusion: 09/12/24 21:53 Dose: Infused Documented By: Admin: 09/12/24 21:23 Dose: 100 mls/hr Documented By: VIOLA Sodium Chloride (Nss) 500 mls @ 999 mls/hr IV .Q31M ONE Stop: 09/12/24 22:33 Last Infusion: 09/12/24 23:00 Dose: Infused Documented By: Admin: 09/12/24 22:29 Dose: 999 mls/hr Documented By: VIOLA Ertapenem (Invanz 1000mg) 1,000 mg in 10 mls @ 2 mls/min IV ONE STA Stop: 09/12/24 23:21 Last Admin: 09/12/24 23:35 Dose: 2 mls/min Documented By: SIMBA Acetaminophen (Ofirmev) 1,000 mg in 100 mls @ 400 mls/hr IV NOW STA Stop: 09/12/24 23:48 Last Infusion: 09/12/24 23:56 Dose: Infused Documented By: Admin: 09/12/24 23:41 Dose: 400 mls/hr Documented By: SIMBA Ioversol (Optiray 320 100ml) 90 ml IV ONCE ONE Stop: 09/12/24 19:57 Last Admin: 09/12/24 19:57 Dose: 90 ml Documented By: DYLON Metoprolol Tartrate (Metoprolol Tartrate 1 Mg/Ml Vial) 2.5 mg IV NOW STA Stop: 09/12/24 22:44 Last Admin: 09/12/24 23:34 Dose: 2.5 mg Documented By: SIMBA Ondansetron HCl (Ondansetron Inj 2 Mg/Ml 2 Ml Vial) 4 mg IV NOW STA Stop: 09/12/24 19:18 Last Admin: 09/12/24 19:43 Dose: 4 mg Documented By: VIOLA Ondansetron HCl (Ondansetron Inj 2 Mg/Ml 2 Ml Vial) 4 mg IV NOW STA Stop: 09/12/24 22:04 Last Admin: 09/12/24 22:29 Dose: 4 mg Documented By: VIOLA Imaging Data Radiologist's Impression: Abdomen/Pelvis CT 09/12/24 19:13 Exam(s): CT ABDOMEN + PELVIS With Contrast IV Amt: 90 ml optiray 320 EXAM: CT Abdomen and Pelvis With Intravenous Contrast CLINICAL HISTORY: Reason for exam: mid abd pain. TECHNIQUE: Axial computed tomography images of the abdomen and pelvis with intravenous contrast. CTDI is 17.26 mGy and DLP is 711.8 mGy-cm. Automated exposure control was utilized for the study. A dose lowering technique was utilized adhering to the principles of ALARA. CONTRAST: Patient received 90 ml optiray 320 of IV contrast COMPARISON: CT abdomen/pelvis: 03/22/2024 FINDINGS: Lung bases: Interval bibasilar alveolointerstitial opacities/infiltrates RT>LT.. Small calcified nodules/granulomas in the left lower lobe. No consolidation. ABDOMEN: Liver: Mild diffuse fatty hepatic infiltration. No mass. Gallbladder and bile ducts: Distended gallbladder. No calcified stones. No ductal dilation. Pancreas: Fatty infiltration of the pancreas.. No contour deforming pancreatic mass.. No ductal dilation. Spleen: Unremarkable. No splenomegaly. Adrenals: Unremarkable. No mass. Kidneys and ureters: There are bilateral renal cysts, largest is 3.0 x 2.2 cm seen anteriorly on the left. No solid mass. No hydronephrosis. Stomach and bowel: A moderately large size hiatal hernia is seen with an organoaxial rotation and with gastroesophageal wall thickening. Fluid and gas filled normal caliber small bowel loops. Mildly distended cecum/ascending colon is seen filled with liquid stool/gas. Moderately large amount of formed stool is seen in the rest of the colon. There is diffuse descending colon and sigmoid diverticulosis coli. In the left lower abdominal quadrant pericolonic mild inflammatory versus reactive mesenteric fat stranding is seen (series 300 image 37). No obstruction. No mucosal thickening. PELVIS: Appendix: No findings to suggest acute appendicitis. Bladder: Unremarkable. No mass. Reproductive: Unremarkable as visualized. ABDOMEN and PELVIS: Intraperitoneal space: No free air. No significant fluid collection. Bones/joints: Osteopenia. No acute fracture. No dislocation. L1 vertebral mild retrolisthesis. Multilevel moderately advanced degenerative thoracolumbosacral spondylotic changes seen. Soft tissues: Unremarkable. A small fat-containing right inguinal hernia. Vasculature: Atherosclerotic calcified plaques, tortuosity/elongation of the aortoiliac vasculature. No abdominal aortic aneurysm. Lymph nodes: Small mesenteric lymph nodes. No significant enlarged lymph nodes.. IMPRESSION: Lung bases: Alveolointerstitial opacities/infiltrates RT>LT. A distended gallbladder. A moderately large size hiatal hernia with rotation and gastroesophageal wall thickening. Mildly distended cecum/ascending colon seen filled with liquid stool/gas. Moderately large amount of formed stool seen in the rest of the colon. Diffuse descending colon and sigmoid diverticulosis coli. In the left lower abdominal quadrant pericolonic fat stranding/ mild diverticulitis versus reactive mesenteric stranding is seen. Clinical correlation is recommended. Additional findings as above . Electronically signed by: Giancarlo Du MD, HEDYR 09/12/24 20:54 PM Discharge Plan Visit Data Chief Complaint: Urinary Symptoms Stated Complaint: BLADDER INFECTION SICK ED Provider: Jj Jules Discharge Problem: Abdominal pain, Nausea, Hyponatremia, Urinary tract infection, Esophageal hiatal hernia Condition: Fair Discharge Instructions Interventions: ED Discharge Assessment Last Done: 09/13/24 00:10 Forms Stand Alone Forms: [facility] Prescriptions Prescriptions: No Action methenamine hippurate 1 gram tablet 1 g PO BID Qty: 90 1RF atorvastatin 40 mg tablet 40 mg PO DAILY cetirizine 10 mg tablet 10 mg PO DAILY cyanocobalamin (vitamin B-12) 1,000 mcg tablet 1,000 mcg PO DAILY tramadol 50 mg tablet 50 mg PO HS PRN (Reason: Severe Pain (Scale Score 7-10)) omeprazole 20 mg capsule,delayed release(DR/EC) 20 mg PO DAILY calcium carbonate-vitamin D3 600 mg-5 mcg (200 unit) Tablet 1 tab PO DAILY lisinopril 10 mg Tablet 10 mg PO QAM Qty: 30 0RF fluconazole 150 mg tablet 150 mg PO ONCE Referrals Referrals: Sid Roche MD [Primary Care Provider] - Discharge Problem: Abdominal pain Qualifiers: Abdominal location: unspecified location Qualified Code(s): R10.9 - Unspecified abdominal pain Urinary tract infection Qualifiers: Urinary tract infection type: site unspecified Hematuria presence: without hematuria Qualified Code(s): N39.0 - Urinary tract infection, site not specified
[2024-09-12 19:33] LABS: Hematocrit (blood only) 33.3 % (37.0-47.0); Hemoglobin 11.2 g/dl (12.0-16.0); Immature Granulocytes # (auto) 0.01 K/uL (0.01-0.20); Immature Granulocytes % (auto) 0.2 %; Mean Corpuscular Hemoglobin 30.1 pg (25.0-34.0); Mean Corpuscular Volume 89.5 fL (80.0-100.0); Platelet Count 204 K/uL (130-400); RDW Standard Deviation 41.9 fL (36.4-46.3); Red Blood Count 3.72 M/uL (4.20-5.40); White Blood Count 6.01 K/ul (4.8-10.8)
[2024-09-12] MEDS: ONDANSETRON INJ 2 MG/ML 2 ML VIAL IV STA ×2 (19:43→22:29)
[2024-09-12 19:50] LABS: Alanine Aminotransferase 10.0 U/L (7-52); Albumin Globulin Ratio 1.3 (0.9-2); Alkaline Phosphatase 64.0 U/L (34-104); Anion Gap 9.0 (3-11); Bilirubin,Total 1.4 mg/dl (0.2-1.0); Blood Urea Nitrogen 15.0 mg/dl (6-23); Calcium 9.4 mg/dl (8.6-10.3); Carbon Dioxide 25.0 mmol/L (21-32); Chloride 97.0 mmol/L (98-107); Creatinine Clr Calc Pharmacy 48.6 ml/min; Globulin 3.3 gm/dl (2.5-4.0); Glucose 150.0 mg/dl (70-99(Fasting)); Lipase 6.0 U/L (11-82); Potassium 3.9 mmol/L (3.5-5.1); Sodium 131.0 mmol/L (136-145); Total Protein 7.5 gm/dl (6.0-8.3)
[2024-09-12] MEDS: OPTIRAY 320 100ml IV ONE (19:57)
[2024-09-12] MEDS: SODIUM CHLORIDE 0.9% 1,000 ML IV ONE (20:35)
--- NOTE | 2024-09-12 20:55 | CT Scan Report ---
Exam(s): CT ABDOMEN + PELVIS With Contrast IV Amt: 90 ml optiray 320 EXAM: CT Abdomen and Pelvis With Intravenous Contrast CLINICAL HISTORY: Reason for exam: mid abd pain. TECHNIQUE: Axial computed tomography images of the abdomen and pelvis with intravenous contrast. CTDI is 17.26 mGy and DLP is 711.8 mGy-cm. Automated exposure control was utilized for the study. A dose lowering technique was utilized adhering to the principles of ALARA. CONTRAST: Patient received 90 ml optiray 320 of IV contrast COMPARISON: CT abdomen/pelvis: 03/22/2024 FINDINGS: Lung bases: Interval bibasilar alveolointerstitial opacities/infiltrates RT>LT.. Small calcified nodules/granulomas in the left lower lobe. No consolidation. ABDOMEN: Liver: Mild diffuse fatty hepatic infiltration. No mass. Gallbladder and bile ducts: Distended gallbladder. No calcified stones. No ductal dilation. Pancreas: Fatty infiltration of the pancreas.. No contour deforming pancreatic mass.. No ductal dilation. Spleen: Unremarkable. No splenomegaly. Adrenals: Unremarkable. No mass. Kidneys and ureters: There are bilateral renal cysts, largest is 3.0 x 2.2 cm seen anteriorly on the left. No solid mass. No hydronephrosis. Stomach and bowel: A moderately large size hiatal hernia is seen with an organoaxial rotation and with gastroesophageal wall thickening. Fluid and gas filled normal caliber small bowel loops. Mildly distended cecum/ascending colon is seen filled with liquid stool/gas. Moderately large amount of formed stool is seen in the rest of the colon. There is diffuse descending colon and sigmoid diverticulosis coli. In the left lower abdominal quadrant pericolonic mild inflammatory versus reactive mesenteric fat stranding is seen (series 300 image 37). No obstruction. No mucosal thickening. PELVIS: Appendix: No findings to suggest acute appendicitis. Bladder: Unremarkable. No mass. Reproductive: Unremarkable as visualized. ABDOMEN and PELVIS: Intraperitoneal space: No free air. No significant fluid collection. Bones/joints: Osteopenia. No acute fracture. No dislocation. L1 vertebral mild retrolisthesis. Multilevel moderately advanced degenerative thoracolumbosacral spondylotic changes seen. Soft tissues: Unremarkable. A small fat-containing right inguinal hernia. Vasculature: Atherosclerotic calcified plaques, tortuosity/elongation of the aortoiliac vasculature. No abdominal aortic aneurysm. Lymph nodes: Small mesenteric lymph nodes. No significant enlarged lymph nodes.. IMPRESSION: Lung bases: Alveolointerstitial opacities/infiltrates RT>LT. A distended gallbladder. A moderately large size hiatal hernia with rotation and gastroesophageal wall thickening. Mildly distended cecum/ascending colon seen filled with liquid stool/gas. Moderately large amount of formed stool seen in the rest of the colon. Diffuse descending colon and sigmoid diverticulosis coli. In the left lower abdominal quadrant pericolonic fat stranding/ mild diverticulitis versus reactive mesenteric stranding is seen. Clinical correlation is recommended. Additional findings as above . Electronically signed by: Giancarlo Du MD, DABR 09/12/24 20:54 PM
[2024-09-12 21:06] LABS: Appearance Urine Clear (Clear); Bacteria Urine Automated None Seen (None Seen); Cast Urine Automated 0-2 /lpf (0-2); Epithelial Cell Urine Auto 0-2 /hpf (0-2); Glucose Urine UA Negative (Negative); RBC Urine Automated >20 /hpf (0-2); WBC Urine Automated 21-50 /hpf (0-5)
[2024-09-12] MEDS: cefTRIAXone SODIUM 2,000 MG/50 ML BAG IV STA (21:23)
[2024-09-12] MEDS: SODIUM CHLORIDE 0.9% 500 ML IV ONE (22:29)
--- NOTE | 2024-09-12 23:09 | History & Physical Report ---
Date of Service September 12, 2024 Assessment & Plan (1) Asymptomatic hypertensive urgency: Plan: Assessment and plan below following discussion of case with ED provider and reviewing patient history/pertinent normal/abnormal diagnostic test results. Hypertensive urgency Secondary to abdominal pain Abdominal pain Multifactorial Bowel distention, history chronic constipation as per records Possible complicated UTI, history recurrent UTIs on methenamine suppression Rx, history ESBL as per records, no sepsis for now Acute on chronic hyponatremia secondary illness hyperlipidemia, on statin Rx chronic anemia, hemoglobin at baseline rheumatoid arthritis, currently not on maintenance medications prediabetes, hemoglobin A1c of 5.6 from 2020 GERD, on PPI Admit to med/tele IV Lopressor 1 dose now given concomitant tachycardia symptoms Titrate home lisinopril Analgesia Bowel rest, n.p.o. Bowel regimen General Surgery consult re: bowel distention/abnormal CTAP (Patient already evaluated by provider at the ER.) Urine CS, ertapenem given ESBL history Careful correction of sodium Update hemoglobin A1c DVT prophylaxis. Lovenox subcu DNR Text document was generated using [employer] voice recognition software. It may contain grammatical or spelling errors. Kindly contact undersigned for clarification of any documentation item in question. History of Present Illness Chief Complaint: Abdominal pain Primary Care Provider: Sid Roche MD History obtained from patient and records. Medical history significant for hypertension, hyperlipidemia, chronic anemia (baseline hemoglobin 10-11), rheumatoid arthritis, prediabetes, chronic hyponatremia, GERD, chronic constipation as per records, recurrent UTIs on chronic methenamine suppression Rx, history ESBL UTI. Last confinement March 2024 for hyponatremia. Nephrology recommended 2 L fluid restriction and discontinuing home diuretics on discharge. 2 days ago, patient noted achy abdominal pain associate with nausea and constipation symptoms. Denies headache, chest pain, SOB. Patient seen at PCP's office today for evaluation. No obstruction on outpatient x-ray. Laxatives prescribed. Patient brought to ER for worsening symptoms. SBP 190s upon arrival at the ER. Ceftriaxone administered at the ER. Medical History as above Surgical History : Hemorrhoidectomy, glaucoma surgeries, cataract surgeries, SCOTTY with BSO Family History : Lung cancer, RA, DM, heart disease, mood disorder Personal/Social history : Non-smoker, no EtOH intake, retired from factory work Allergies Allergy/AdvReac Type Severity Reaction Status Date / Time nitrofurantoin Allergy Intermediate all over Verified 05/08/24 13:28 pruritic rash trimethoprim Allergy Intermediate Rash Verified 05/08/24 13:28 Sulfa (Sulfonamide AdvReac Severe Gastrointestinal Verified 05/08/24 13:28 Antibiotics) Upset Home Medications Medication Instructions Recorded Confirmed Type atorvastatin 40 mg tablet 40 mg PO DAILY 03/21/24 09/12/24 History calcium 600 mg (as 1 tab PO DAILY 03/21/24 09/12/24 History carbonate)-vitamin D3 5 mcg (200 unit) tablet cetirizine 10 mg tablet 10 mg PO DAILY 03/21/24 09/12/24 History cyanocobalamin (vitamin B-12) 1,000 mcg PO DAILY 03/21/24 09/12/24 History 1,000 mcg tablet omeprazole 20 mg capsule,delayed 20 mg PO DAILY 03/21/24 09/12/24 History release tramadol 50 mg tablet 50 mg PO HS PRN Severe Pain (Scale 03/21/24 09/12/24 History Score 7-10) lisinopril 10 mg tablet 10 mg PO QAM #30 tabs 03/24/24 09/12/24 Rx methenamine hippurate 1 gram tablet 1 g PO BID #90 tabs 07/13/24 09/12/24 Rx fluconazole 150 mg tablet 150 mg PO ONCE 09/12/24 09/12/24 History Past Med/Surg History Problem List (Updated 09/13/24 @ 10:19 by Bala Quiñones MD) Asymptomatic hypertensive urgency Esophageal hiatal hernia (Acute) Abdominal pain (Acute) Acute hyponatremia (Acute) Nausea (Acute) Weakness (Acute) Hyponatremia (Acute) Pain in right lower leg Cystitis (Acute) Essential hematuria (Acute) Recurrent UTI (Acute) Urinary tract infection, acute (Acute) Hematuria (Acute) Dysuria (Acute) Urinary tract infection (Acute) Medical History UTI (urinary tract infection) High blood pressure Surgical History H/O: hysterectomy No significant past surgical history Family History Daughter Diabetes Nephrolithiasis Other Family history non-contributory Social History Smoking Status: Never smoker Second Hand Exposure: No; Do You Dip or Chew Tobacco: No; Tobacco Cessation Education Requested by Patient: No Hx Alcohol Use: No Hx Substance Use: No Preferred Language: Occitan Communication Ability: Effective Certified Driver Examiner Required: No Beliefs That Will Affect Care: None Current Living Situation: Family Current Living Situation Comment: lives with daughter Other Information That Helps Us Care for You: No Feels Safe at Home: Yes Safety Concerns: Feels Safe At This Time Assistive Devices: Walker Review of Systems Review of Systems: As per HPI, all other systems reviewed and negative Physical Exam Physical Exam: GENERAL: Comfortable, slightly anxious, no respiratory distress SKIN: Pallor, warm HEENT: Pale palpebral conjunctivae, no ptosis, dry buccal mucosa NECK : Supple, no tenderness CHEST : CTA, no tenderness HEART : Tachycardic, no obvious murmurs ABDOMEN: Some distention, minimal central abdominal tenderness EXTREMITIES : No LE swelling/tenderness, palpable pulses, no other conspicuous deformities noted NEUROLOGIC : Coherent, no facial asymmetry, no other gross focality Results & Data Results & Data Vital Signs (Past 12 Hours) Vital Signs Temp Pulse Pulse Resp BP BP Pulse Ox 09/12/24 22:00 115 H 18 173/103 H 93 09/12/24 20:49 99 H 18 184/100 H 90 09/12/24 18:50 36.7 C 98 H 18 191/96 H 96 O2 Del Method 09/12/24 22:00 Room Air 09/12/24 20:49 Room Air 09/12/24 18:50 Room Air Laboratory Results Laboratory Results WBC 6.01 K/ul (4.8-10.8) 09/12/24 19:20 RBC 3.72 M/uL (4.20-5.40) L 09/12/24 19:20 Hgb 11.2 g/dl (12.0-16.0) L 09/12/24 19:20 POC Hgb 11.6 g/dl (12.0-16.0) L 09/12/24 19:25 Hct 33.3 % (37.0-47.0) L 09/12/24 19:20 POC Hct 34 % (37-47) L 09/12/24 19:25 MCV 89.5 fL (80.0-100.0) 09/12/24 19:20 MCH 30.1 pg (25.0-34.0) 09/12/24 19:20 MCHC 33.6 g/dL (32.0-36.0) 09/12/24 19:20 RDW Std Deviation 41.9 fL (36.4-46.3) 09/12/24 19:20 RDW Coeff of Gera 12.9 % (11.5-14.5) 09/12/24 19:20 Plt Count 204 K/uL (130-400) 09/12/24 19:20 MPV 9.2 fL (9.4-12.4) L 09/12/24 19:20 Immature Gran % (Auto) 0.2 % 09/12/24 19:20 Neut % (Auto) 72.2 % 09/12/24 19:20 Lymph % (Auto) 20.0 % 09/12/24 19:20 [place] % (Auto) 7.2 % 09/12/24 19:20 Eos % (Auto) 0.2 % 09/12/24 19:20 Baso % (Auto) 0.2 % 09/12/24 19:20 Neut # (Auto) 4.35 K/uL (1.40-6.50) 09/12/24 19:20 Lymph # (Auto) 1.20 K/uL (1.20-3.40) 09/12/24 19:20 [place] # (Auto) 0.43 K/uL (0.11-0.59) 09/12/24 19:20 Eos # (Auto) 0.01 K/uL (0.00-0.50) 09/12/24 19:20 Baso # (Auto) 0.01 K/uL (0.00-0.20) 09/12/24 19:20 Immature Gran # (Auto) 0.01 K/uL (0.01-0.20) 09/12/24 19:20 POC Sodium 131 mmol/L (135-144) L 09/12/24 19:25 Sodium 131 mmol/L (136-145) L 09/12/24 19:20 POC Potassium 3.9 mmol/L (3.3-5.0) 09/12/24 19:25 Potassium 3.9 mmol/L (3.5-5.1) 09/12/24 19:20 POC Chloride 96 mmol/L (101-112) L 09/12/24 19:25 Chloride 97 mmol/L (98-107) L 09/12/24 19:20 Carbon Dioxide 25 mmol/L (21-32) 09/12/24 19:20 POC Total CO2 23 mmol/L (24-31) L 09/12/24 19:25 Anion Gap 9 (3-11) 09/12/24 19:20 POC Anion Gap 17.0 mmol/L (16-25) 09/12/24 19:25 POC BUN 14 mg/dl (7-18) 09/12/24 19:25 BUN 15 mg/dl (6-23) 09/12/24 19:20 Creatinine 0.72 mg/dl (0.6-1.2) 09/12/24 19:20 POC Creatinine 0.8 mg/dl (0.6-1.3) 09/12/24 19:25 Est Cr Clr Drug Dosing 48.6 ml/min 09/12/24 19:20 eGFR 80.87 09/12/24 19:20 BUN/Creatinine Ratio 20.8 (10-20) H 09/12/24 19:20 Glucose 150 mg/dl (70-99(Fasting)) H 09/12/24 19:20 POC Glucose (other) 151 mg/dl (70-99) H 09/12/24 19:25 Calcium 9.4 mg/dl (8.6-10.3) 09/12/24 19:20 POC Ioniz Calcium [place] 1.18 mmol/l (1.12-1.32) 09/12/24 19:25 Total Bilirubin 1.4 mg/dl (0.2-1.0) H 09/12/24 19:20 AST 18 U/L (13-39) 09/12/24 19:20 ALT 10 U/L (7-52) 09/12/24 19:20 Alkaline Phosphatase 64 U/L (34-104) 09/12/24 19:20 Total Protein 7.5 gm/dl (6.0-8.3) 09/12/24 19:20 Albumin 4.2 gm/dl (3.4-5.0) 09/12/24 19:20 Globulin 3.3 gm/dl (2.5-4.0) 09/12/24 19:20 Albumin/Globulin Ratio 1.3 (0.9-2) 09/12/24 19:20 Lipase 6 U/L (11-82) L 09/12/24 19:20 Urine Color Yellow 09/12/24 20:44 Urine Appearance Clear (Clear) 09/12/24 20:44 Urine pH 6.5 (4.5-7.5) 09/12/24 20:44 Ur Specific [place] 1.032 (1.000-1.030) H 09/12/24 20:44 Urine Protein 1+ (Negative) H 09/12/24 20:44 Urine Glucose (UA) Negative (Negative) 09/12/24 20:44 Urine Ketones Trace (Negative) H 09/12/24 20:44 Urine Blood 2+ (Negative) H 09/12/24 20:44 Urine Nitrite Negative (Negative) 09/12/24 20:44 Urine Bilirubin Negative (Negative) 09/12/24 20:44 Urine Urobilinogen Negative (Negative) 09/12/24 20:44 Ur Leukocyte Esterase 1+ (Negative) H 09/12/24 20:44 Urine WBC (Auto) 21-50 /hpf (0-5) H 09/12/24 20:44 Urine RBC (Auto) >20 /hpf (0-2) H 09/12/24 20:44 U Hyaline Cast (Auto) 0-2 /lpf (0-2) 09/12/24 20:44 U Epithel Cells (Auto) 0-2 /hpf (0-2) 09/12/24 20:44 Urine Bacteria (Auto) None Seen (None Seen) 09/12/24 20:44 Hyaline Casts Present /lpf (None Presnt) A 09/12/24 20:44 Urine Comment 09/12/24 20:44 Impressions Abdomen/Pelvis CT 09/12/24 19:13 Exam(s): CT ABDOMEN + PELVIS With Contrast IV Amt: 90 ml optiray 320 EXAM: CT Abdomen and Pelvis With Intravenous Contrast CLINICAL HISTORY: Reason for exam: mid abd pain. TECHNIQUE: Axial computed tomography images of the abdomen and pelvis with intravenous contrast. CTDI is 17.26 mGy and DLP is 711.8 mGy-cm. Automated exposure control was utilized for the study. A dose lowering technique was utilized adhering to the principles of ALARA. CONTRAST: Patient received 90 ml optiray 320 of IV contrast COMPARISON: CT abdomen/pelvis: 03/22/2024 FINDINGS: Lung bases: Interval bibasilar alveolointerstitial opacities/infiltrates RT>LT.. Small calcified nodules/granulomas in the left lower lobe. No consolidation. ABDOMEN: Liver: Mild diffuse fatty hepatic infiltration. No mass. Gallbladder and bile ducts: Distended gallbladder. No calcified stones. No ductal dilation. Pancreas: Fatty infiltration of the pancreas.. No contour deforming pancreatic mass.. No ductal dilation. Spleen: Unremarkable. No splenomegaly. Adrenals: Unremarkable. No mass. Kidneys and ureters: There are bilateral renal cysts, largest is 3.0 x 2.2 cm seen anteriorly on the left. No solid mass. No hydronephrosis. Stomach and bowel: A moderately large size hiatal hernia is seen with an organoaxial rotation and with gastroesophageal wall thickening. Fluid and gas filled normal caliber small bowel loops. Mildly distended cecum/ascending colon is seen filled with liquid stool/gas. Moderately large amount of formed stool is seen in the rest of the colon. There is diffuse descending colon and sigmoid diverticulosis coli. In the left lower abdominal quadrant pericolonic mild inflammatory versus reactive mesenteric fat stranding is seen (series 300 image 37). No obstruction. No mucosal thickening. PELVIS: Appendix: No findings to suggest acute appendicitis. Bladder: Unremarkable. No mass. Reproductive: Unremarkable as visualized. ABDOMEN and PELVIS: Intraperitoneal space: No free air. No significant fluid collection. Bones/joints: Osteopenia. No acute fracture. No dislocation. L1 vertebral mild retrolisthesis. Multilevel moderately advanced degenerative thoracolumbosacral spondylotic changes seen. Soft tissues: Unremarkable. A small fat-containing right inguinal hernia. Vasculature: Atherosclerotic calcified plaques, tortuosity/elongation of the aortoiliac vasculature. No abdominal aortic aneurysm. Lymph nodes: Small mesenteric lymph nodes. No significant enlarged lymph nodes.. IMPRESSION: Lung bases: Alveolointerstitial opacities/infiltrates RT>LT. A distended gallbladder. A moderately large size hiatal hernia with rotation and gastroesophageal wall thickening. Mildly distended cecum/ascending colon seen filled with liquid stool/gas. Moderately large amount of formed stool seen in the rest of the colon. Diffuse descending colon and sigmoid diverticulosis coli. In the left lower abdominal quadrant pericolonic fat stranding/ mild diverticulitis versus reactive mesenteric stranding is seen. Clinical correlation is recommended. Additional findings as above . Electronically signed by: Giancarlo Du MD, REYNALDO 09/12/24 20:54 PM
[2024-09-12 23:21] LABS: Magnesium 1.7 mg/dl (1.7-2.4)
[2024-09-12] MEDS: METOPROLOL TARTRATE 1 MG/ML VIAL IV STA (23:34)
[2024-09-12] MEDS: ERTAPENEM 1000MG 1,000 MG/10 ML SYR IV STA (23:35)
[2024-09-12 23:37] LABS: Thyroid Stimulating Hormone 1.154 uIu/ml (0.300-4.500)
[2024-09-12] MEDS: ACETAMINOPHEN 1,000 MG/100 ML VIAL IV STA (23:41)
--- NOTE | 2024-09-13 00:52 | XRay Report ---
Exam(s): XR CXR 1 VIEW EXAM: XR Chest, 1 View CLINICAL HISTORY: Reason for exam: hyponatremia. TECHNIQUE: Frontal view of the chest. COMPARISON: 03/04/2024 FINDINGS: Lungs: Calcified granuloma left lung base. Subsegmental atelectasis right lung base. No consolidation. Pleural space: No significant pleural effusion. No pneumothorax. Heart: No cardiomegaly or pulmonary vascular congestion. Mediastinum: Small hiatal hernia. Bones/joints: No acute fracture. No dislocation. IMPRESSION: No acute findings in the chest. Electronically signed by: Al Mckinley M.D. 09/13/24 00:51 AM
--- NOTE | 2024-09-13 01:37 | Surgery Consultation ---
Date of Consultation September 13, 2024 Assessment & Plan (1) Esophageal hiatal hernia: Patient is an 89-year-old female with complaints of ongoing abdominal pain, nausea, poor appetite, and urinary symptoms who was found to have CT findings concerning for a large hiatal hernia with rotation and esophageal wall th ickening with distended cecum/ascending colon with liquid stool and gas and a moderate amount of stool in the rest of the colon. CT imaging also did demonstrate possible pericolonic fat stranding/mild diverticulitis versus reactive mesenteric stranding as well. UA also revealed a UTI in the emergency department and patient was given appropriate biotic coverage. I discussed CT findings with both the patient and her daughter at bedside along with speaking to her other daughter via phone. The patient is still actively nauseous and belching during my evaluation and I did recommend admission for further surgical evaluation and also treatment of UTI. For now keep n.p.o., IV hydration, pain control and antiemetics as needed. Monitor bowel function. Patient currently with no signs of acute abdomen that would warrant emergent surgical intervention, will plan to treat conservatively. However when I did discuss possible surgical intervention if needed, the patient's daughter states that due to her mother's comorbidities and age she is unsure if she would not put her through surgery. Surgery team will follow along and will provide additional recommendations as patient's hospital course unfolds. As above. Patient states she is feeling better today than yesterday. She denies a recent history of food intolerance dysphagia nausea etc. however when I spoke to her daughter on the phone she believes that her mom has been having some trouble recently. Patient currently is not in acute pain. We are treating her UTI. After discussing options with her daughter I am going to proceed nessa rrow with an EGD to evaluate the exact extent of the gastric portion and to make sure there is no evidence of any mucosal ischemia. Pending results of tomorrow's test we will have to make a decision regarding operative intervention which I could do in the next 2 to 3 weeks after clearing her UTI. Currently no urgent or emergent indication for surgical intervention. History of Present Illness Reason for Consultation: hiatal hernia History of Present Illness The patient is an 89-year-old female who presented to the emergency department with complaints of abdominal pain, nausea, and urinary symptoms over the last few days. Patient states that over the last week she has had decreased appetite with ongoing nausea and has not had a bowel movement in the last 2 - 3 days. States her abdominal pain is diffuse in nature and she has also been belching more. The patient recently has also been treated with oral antibiotics for UTI and daughter who is at bedside states that she does not believe that antibiotics worked. The patient's symptoms persisted and nothing seem to be helping at home which prompted her to come to the emergency department for further evaluation. Upon workup patient was found to have a UTI on UA along with CT findings concerning for large hiatal hernia with rotation and gastroesophageal wall thickening along with mildly distended cecum/ascending colon filled with liquid stool/gas along with large amounts of formed stool and the rest of the colon and left lower quadrant pericolonic fat stranding/mild diverticulitis vs reactive mesenteric stranding. Due to these findings general surgery was consulted for further evaluation of the patient. Patient was seen and evaluated in the emergency department. She is resting comfortably in bed, vital signs stable, and is nontoxic appearing. During my evaluation the patient states that she does feel nauseous and she is actively belching. She denies passing any gas. Patient states that she has known she has had a hiatal hernia in the past, however this is never caused her any issues. The patient does have a surgical history significant for a total hysterectomy in the past. Allergies Allergy/AdvReac Type Severity Reaction Status Date / Time nitrofurantoin Allergy Intermediate all over Verified 05/08/24 13:28 pruritic rash trimethoprim Allergy Intermediate Rash Verified 05/08/24 13:28 Sulfa (Sulfonamide AdvReac Severe Gastrointestinal Verified 05/08/24 13:28 Antibiotics) Upset Home Medications Medication Instructions Recorded Confirmed Type atorvastatin 40 mg tablet 40 mg PO DAILY 03/21/24 09/12/24 History calcium 600 mg (as 1 tab PO DAILY 03/21/24 09/12/24 History carbonate)-vitamin D3 5 mcg (200 unit) tablet cetirizine 10 mg tablet 10 mg PO DAILY 03/21/24 09/12/24 History cyanocobalamin (vitamin B-12) 1,000 mcg PO DAILY 03/21/24 09/12/24 History 1,000 mcg tablet omeprazole 20 mg capsule,delayed 20 mg PO DAILY 03/21/24 09/12/24 History release tramadol 50 mg tablet 50 mg PO HS PRN Severe Pain (Scale 03/21/24 09/12/24 History Score 7-10) lisinopril 10 mg tablet 10 mg PO QAM #30 tabs 03/24/24 09/12/24 Rx methenamine hippurate 1 gram tablet 1 g PO BID #90 tabs 07/13/24 09/12/24 Rx fluconazole 150 mg tablet 150 mg PO ONCE 09/12/24 09/12/24 History Patient History Medical History UTI (urinary tract infection) High blood pressure Surgical History H/O: hysterectomy No significant past surgical history Family History Daughter Diabetes Nephrolithiasis Other Family history non-contributory Social History Smoking Status: Never smoker Second Hand Exposure: No; Do You Dip or Chew Tobacco: No; Tobacco Cessation Education Requested by Patient: No Hx Alcohol Use: No Hx Substance Use: No Preferred Language: Haitian Communication Ability: Effective Continuous Mining 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 Beliefs That Will Affect Care: None Current Living Situation: Family Current Living Situation Comment: lives with daughter Other Information That Helps Us Care for You: No Feels Safe at Home: Yes Safety Concerns: Feels Safe At This Time Assistive Devices: Walker Review of Systems Constitutional: no fever and no chills Respiratory: no cough and no chest congestion Cardiovascular: no chest pain and no palpitations Gastrointestinal: as per Subjective / HPI, + abdominal pain, + belching and + nausea; no vomiting Genitourinary: as per Subjective / HPI; no hematuria Physical Exam Constitutional: WD/WN, vitals as above Respiratory: normal respiratory effort, lungs clear to auscultation Cardiovascular: Rate/Rhythm: regular rate Gastrointestinal (Abdomen): Abdomen soft, nondistended, mild TTP throughout without any signs of rebound, guarding or peritonitis Old surgical site appreciated in lower abdomen Skin: no rashes, warm and dry Results & Data Vital Signs (Past 12 Hours) Vital Signs Temp Pulse Pulse Resp BP BP Pulse Ox 09/13/24 00:10 96 H 20 169/103 H 94 09/12/24 23:49 95 H 133/96 09/12/24 23:34 113 H 156/87 H 09/12/24 23:00 113 H 18 156/87 H 91 09/12/24 22:59 111 H 09/12/24 22:00 115 H 18 173/103 H 93 09/12/24 20:49 99 H 18 184/100 H 90 09/12/24 18:50 36.7 C 98 H 18 191/96 H 96 O2 Del Method 09/13/24 00:10 Room Air 09/12/24 23:49 09/12/24 23:34 09/12/24 23:00 Room Air 09/12/24 22:59 09/12/24 22:00 Room Air 09/12/24 20:49 Room Air 09/12/24 18:50 Room Air Diagnostic Findings Exam(s): CT ABDOMEN + PELVIS With Contrast IV Amt: 90 ml optiray 320 EXAM: CT Abdomen and Pelvis With Intravenous Contrast CLINICAL HISTORY: Reason for exam: mid abd pain. TECHNIQUE: Axial computed tomography images of the abdomen and pelvis with intravenous contrast. CTDI is 17.26 mGy and DLP is 711.8 mGy-cm. Automated exposure control was utilized for the study. A dose lowering technique was utilized adhering to the principles of ALARA. CONTRAST: Patient received 90 ml optiray 320 of IV contrast COMPARISON: CT abdomen/pelvis: 03/22/2024 FINDINGS: Lung bases: Interval bibasilar alveolointerstitial opacities/infiltrates RT>LT.. Small calcified nodules/granulomas in the left lower lobe. No consolidation. ABDOMEN: Liver: Mild diffuse fatty hepatic infiltration. No mass. Gallbladder and bile ducts: Distended gallbladder. No calcified stones. No ductal dilation. Pancreas: Fatty infiltration of the pancreas.. No contour deforming pancreatic mass.. No ductal dilation. Spleen: Unremarkable. No splenomegaly. Adrenals: Unremarkable. No mass. Kidneys and ureters: There are bilateral renal cysts, largest is 3.0 x 2.2 cm seen anteriorly on the left. No solid mass. No hydronephrosis. Stomach and bowel: A moderately large size hiatal hernia is seen with an organoaxial rotation and with gastroesophageal wall thickening. Fluid and gas filled normal caliber small bowel loops. Mildly distended cecum/ascending colon is seen filled with liquid stool/gas. Moderately large amount of formed stool is seen in the rest of the colon. There is diffuse descending colon and sigmoid diverticulosis coli. In the left lower abdominal quadrant pericolonic mild inflammatory versus reactive mesenteric fat stranding is seen (series 300 image 37). No obstruction. No mucosal thickening. PELVIS: Appendix: No findings to suggest acute appendicitis. Bladder: Unremarkable. No mass. Reproductive: Unremarkable as visualized. ABDOMEN and PELVIS: Intraperitoneal space: No free air. No significant fluid collection. Bones/joints: Osteopenia. No acute fracture. No dislocation. L1 vertebral mild retrolisthesis. Multilevel moderately advanced degenerative thoracolumbosacral spondylotic changes seen. Soft tissues: Unremarkable. A small fat-containing right inguinal hernia. Vasculature: Atherosclerotic calcified plaques, tortuosity/elongation of the aortoiliac vasculature. No abdominal aortic aneurysm. Lymph nodes: Small mesenteric lymph nodes. No significant enlarged lymph nodes.. IMPRESSION: Lung bases: Alveolointerstitial opacities/infiltrates RT>LT. A distended gallbladder. A moderately large size hiatal hernia with rotation and gastroesophageal wall thickening. Mildly distended cecum/ascending colon seen filled with liquid stool/gas. Moderately large amount of formed stool seen in the rest of the colon. Diffuse descending colon and sigmoid diverticulosis coli. In the left lower abdominal quadrant pericolonic fat stranding/ mild diverticulitis versus reactive mesenteric stranding is seen. Clinical correlation is recommended. Additional findings as above PG Care Time/CCT Total # of Minutes Spent Total Time Spent with Patient: Total time spent is greater than 50% in coordination of care (as documented) at patient's floor/unit and/or counseling patient: [place] [address] INT INP/OBS CARE 1/40MIN Patient Type New Medical Decision Making Straight Forward Diagnoses Esophageal hiatal hernia K44.9
[2024-09-13] MEDS: MAGNESIUM SULFATE / D5W 1 GM/100 ML BAG IV STA (01:52)
[2024-09-13] MEDS: NSS + 20MEQ KCL 20 MEQ/1,000 ML BAG IV STA (01:53)
[2024-09-13] MEDS: ACETAMINOPHEN 325 MG TAB PO PRN (03:48)
[2024-09-13 03:52] LABS: Hematocrit (blood only) 30.2 % (37.0-47.0); Hemoglobin 10.3 g/dl (12.0-16.0); Immature Granulocytes # (auto) 0.02 K/uL (0.01-0.20); Immature Granulocytes % (auto) 0.3 %; Mean Corpuscular Hemoglobin 30.7 pg (25.0-34.0); Mean Corpuscular Volume 90.1 fL (80.0-100.0); Platelet Count 194 K/uL (130-400); RDW Standard Deviation 41.8 fL (36.4-46.3); Red Blood Count 3.35 M/uL (4.20-5.40); White Blood Count 6.66 K/ul (4.8-10.8)
[2024-09-13 04:10] LABS: Anion Gap 7.0 (3-11); Blood Urea Nitrogen 12.0 mg/dl (6-23); Calcium 8.3 mg/dl (8.6-10.3); Carbon Dioxide 24.0 mmol/L (21-32); Chloride 100.0 mmol/L (98-107); Creatinine Clr Calc Pharmacy 54.4 ml/min; Glucose 141.0 mg/dl (70-99(Fasting)); Potassium 3.8 mmol/L (3.5-5.1); Sodium 131.0 mmol/L (136-145)
[2024-09-13 08:01] LABS: Hemoglobin A1C 5.7 % (4.5-5.6)
[2024-09-13] MEDS: ENOXAPARIN INJ 40 MG/0.4 ML SYR SQ SCH (08:19)
[2024-09-13] MEDS: CETIRIZINE HCL 10 MG TABLET PO SCH (08:20)
[2024-09-13] MEDS: PROMETHAZINE 6.25 MG/50.25 ML BAG IV PRN (08:20)
[2024-09-13] MEDS: ATORVASTATIN 40 MG TAB PO SCH (08:20)
[2024-09-13] MEDS: CYANOCOBALAMIN (B-12) 500 MCG TABLET PO SCH (08:20)
[2024-09-13] MEDS: PANTOprazole 40 MG/10 ML SYR IV SCH (08:21)
[2024-09-13] MEDS: DOCUSATE SODIUM/SENNA 50/8.6MG TAB PO SCH (10:49)
--- NOTE | 2024-09-13 17:28 | Hospitalist Progress Note ---
Date of Service September 13, 2024 Assessment & Plan (1) Asymptomatic hypertensive urgency: Plan: per admitting service notes: Assessment and plan below following discussion of case with ED provider and reviewing patient history/pertinent normal/abnormal diagnostic test results. Hypertensive urgency Secondary to abdominal pain - improving Abdominal pain Multifactorial Bowel distention, history chronic constipation as per records Possible complicated UTI, history recurrent UTIs on methenamine suppression Rx, history ESBL as per records, no sepsis for now - CT abdomen: large hiatal hernia with rotation, GE wall thickinening- Gen Surg consulted, for EGD tomorrow Constipation- Lactulose, Suppository, will avoid enema in light of diverticulitis Diverticulitis vs Mesenteric Stranding- IV Ertapenem - Urine culture pending IV Ertapenem Acute on chronic hyponatremia secondary illness- Na 131 hyperlipidemia, on statin Rx chronic anemia, hemoglobin at baseline rheumatoid arthritis, currently not on maintenance medications prediabetes, hemoglobin A1c of 5.6 from 2020 GERD, on PPI DVT prophylaxis. Lovenox subcu DNR plan of care discussed with patient and her daughters in detail and at length all questions answered they are understanding, agreeable, comfortable with the plan of care Admission and Anticipated Discharge Date Admission Date: September 12, 2024 Subjective ff up for abdominal pain, etc seen resting in bed, not in distress daughters at bedside visiting states she still has some abdominal pain, nausea no shortness of breath, cough no fever/chills no BM yet, but (+) flatus no other symptoms Review of Systems Review of Systems: all noted and negative except for above Physical Exam Physical Exam: General- oriented x 3, not in distress, speaks in sentences with no effort or accessory muscle use Eyes- anicteric Neck- no JVD Lungs- clear breath sounds bilaterally, no rales/wheezes Heart- normal rate, regular rhythm; no murmurs Abdomen- normal bowel sounds, nondistended, soft, mild tenderness R and L lower quadrants Extremities- no pretibial edema, no calf tenderness Neuro- alert, oriented x 3; no gross focal neurologic deficits Skin- warm & dry Results & Data Results & Data Vital Signs (Past 12 Hours) Vital Signs Temp Pulse Pulse Resp BP BP Pulse Ox 09/13/24 16:46 76 09/13/24 15:17 36.9 C 91 H 18 147/82 H 95 09/13/24 11:20 36.8 C 85 18 154/77 H 94 09/13/24 07:26 82 09/13/24 07:24 37.4 C 89 18 160/83 H 94 O2 Del Method 09/13/24 16:46 09/13/24 15:17 Room Air 09/13/24 11:20 Room Air 09/13/24 07:26 09/13/24 07:24 Room Air all noted and reviewed including below
[2024-09-13] MEDS: ACETAMINOPHEN 1,000 MG/100 ML VIAL IV SCH (18:22)
[2024-09-13] MEDS: LACTULOSE SYRUP 20 GM/30 ML UDC PO STA (18:37)
[2024-09-14] MEDS: ERTAPENEM 1000MG 1,000 MG/10 ML SYR IV SCH (00:22)
[2024-09-14] MEDS ORDERED: PROPOFOL IV EMULSION 10 MG/ML 20 ML VIAL IV ONE (06:27)
[2024-09-14] MEDS ORDERED: LIDOCAINE 2% 2 ML VIAL/AMP(20MG/ML) INFIL ONE (06:27)
[2024-09-14] MEDS ORDERED: ROCURONIUM BROMIDE 10 MG/ML 5 ML VIAL IV ONE (06:35)
--- NOTE | 2024-09-14 07:00 | History & Physical Bridge Note ---
Date of Service September 14, 2024 History & Physical Bridge Note I have examined the patient, reviewed the History & Physical and in the interval since the performance of the History & Physical I have noted the following changes of clinical significance: no changes noted. discussed options with daughter. agrees with proceeding with EGD today .
[2024-09-14] MEDS ORDERED: ONDANSETRON INJ 2 MG/ML 2 ML VIAL IV PRN (07:54)
[2024-09-14] MEDS ORDERED: ATROPINE SULFATE 0.1 MG/ML 10ML SYR IV PRN (07:54)
--- NOTE | 2024-09-14 07:54 | Anesthesiology Consultation ---
Date of Service September 14, 2024 Assessment & Plan Chart Review Chart Review: Acceptable Risk for Surgery and Patient NOT seen in Pre Admission Testing Consults Requested medical & cardiac Pulmonary ASA ASA3 Proposed Anesthesia Anesthesia Type: MAC History Surgery Operation Date: 09/14/24 08:15 Proposed Procedures p Esophagogastroduodenoscopy - Manuel Weber, Height/Weight Height: 5 ft 1 in Weight: 73.7 kg Allergies Allergy/AdvReac Type Severity Reaction Status Date / Time nitrofurantoin Allergy Intermediate all over Verified 05/08/24 13:28 pruritic rash trimethoprim Allergy Intermediate Rash Verified 05/08/24 13:28 Sulfa (Sulfonamide AdvReac Severe Gastrointestinal Verified 05/08/24 13:28 Antibiotics) Upset Medications Home Medications Medication Instructions Recorded Confirmed Last Taken atorvastatin 40 mg tablet 40 mg PO DAILY 03/21/24 09/12/24 Unknown calcium 600 mg (as 1 tab PO DAILY 03/21/24 09/12/24 Unknown carbonate)-vitamin D3 5 mcg (200 unit) tablet cetirizine 10 mg tablet 10 mg PO DAILY 03/21/24 09/12/24 Unknown cyanocobalamin (vitamin B-12) 1,000 mcg PO DAILY 03/21/24 09/12/24 Unknown 1,000 mcg tablet omeprazole 20 mg capsule,delayed 20 mg PO DAILY 03/21/24 09/12/24 Unknown release tramadol 50 mg tablet 50 mg PO HS PRN Severe Pain (Scale 03/21/24 09/12/24 Unknown Score 7-10) lisinopril 10 mg tablet 10 mg PO QAM #30 tabs 03/24/24 09/12/24 Unknown methenamine hippurate 1 gram tablet 1 g PO BID #90 tabs 07/13/24 09/12/24 Unknown fluconazole 150 mg tablet 150 mg PO ONCE 09/12/24 09/12/24 09/12/24 Active Medications Generic Name Dose Route Start Last Admin Trade Name Freq PRN Reason Stop Dose Admin Atorvastatin Calcium 40 mg 09/13/24 09:00 09/13/24 08:20 Atorvastatin 40 Mg Tab PO 10/13/24 08:59 40 mg DAILY ELISA Administration Cetirizine HCl 10 mg 09/13/24 09:00 09/13/24 08:20 Cetirizine Hcl 10 Mg Tablet PO 10/13/24 08:59 10 mg DAILY ELISA Administration Cyanocobalamin 1,000 mcg 09/13/24 09:00 09/13/24 08:20 Cyanocobalamin (B-12) 500 Mcg Tablet PO 10/13/24 08:59 1,000 mcg DAILY ELISA Administration Enoxaparin Sodium 40 mg 09/13/24 09:00 09/13/24 08:19 Enoxaparin Inj 40 Mg/0.4 Ml Syr SQ 10/13/24 08:59 40 mg QAM ELISA Administration Ertapenem 1,000 mg in 10 mls @ 2 mls/min 09/13/24 23:00 09/14/24 00:22 Invanz 1000mg IV 09/23/24 22:59 2 mls/min Q24H ELISA Administration Protocol Promethazine HCl 6.25 mg in 50.25 mls @ 201 mls/hr 09/13/24 00:19 09/13/24 09:19 Phenergan IV 10/13/24 00:18 Infused Q6H PRN Infusion Nausea And Vomiting Pantoprazole Sodium 40 mg in 10 mls @ 5 mls/min 09/13/24 09:00 09/13/24 20:55 Protonix IV 10/13/24 08:59 5 mls/min BID ELISA Administration Acetaminophen 1,000 mg in 100 mls @ 400 mls/hr 09/13/24 17:00 09/14/24 01:38 Ofirmev IV 09/16/24 16:59 Infused Q8H ELISA Infusion Lisinopril 10 mg 09/13/24 09:00 09/13/24 08:20 Lisinopril 10 Mg Tab PO 10/13/24 08:59 10 mg QAM ELISA Administration Senna/Docusate Sodium 1 tab 09/13/24 10:30 09/13/24 10:49 Docusate Sodium/Senna 50/8.6mg Tab PO 10/13/24 10:29 1 tab QAM ELISA Administration NPO Date Last Intake of Fluids: 09/13/24 Time Last Intake of Fluids: 23:59 Date Last Intake of Solids: 09/13/24 Time Last Intake of Solids: 23:59 Past Medical History Medical History UTI (urinary tract infection) High blood pressure Past Family History Family History Daughter Diabetes Nephrolithiasis Other Family history non-contributory Past Surgical History Surgical History H/O: hysterectomy No significant past surgical history Social History Smoking Status: Never smoker Do You Dip or Chew Tobacco: No Hx Alcohol Use: No Hx Substance Use: No substance use type: does not use Physical Exam Vital Signs Last Vital Signs Temp 37.4 C 09/14/24 07:14 Pulse 59 L 09/14/24 07:21 Resp 18 09/14/24 07:14 BP 153/84 H 09/14/24 07:14 Pulse Ox 93 09/14/24 07:14 O2 Del Method Room Air 09/14/24 07:14 Testing Laboratory Results 09/13/24 03:18 09/13/24 03:18 Hemoglobin A1c 5.7 % (4.5-5.6) H 09/13/24 03:18 Urine Color Yellow 09/12/24 20:44 Urine Appearance Clear (Clear) 09/12/24 20:44 Urine pH 6.5 (4.5-7.5) 09/12/24 20:44 Ur Specific [place] 1.032 (1.000-1.030) H 09/12/24 20:44 Urine Protein 1+ (Negative) H 09/12/24 20:44 Urine Glucose (UA) Negative (Negative) 09/12/24 20:44 Urine Ketones Trace (Negative) H 09/12/24 20:44 Urine Nitrite Negative (Negative) 09/12/24 20:44 Ur Leukocyte Esterase 1+ (Negative) H 09/12/24 20:44 Urine WBC (Auto) 21-50 /hpf (0-5) H 09/12/24 20:44 Urine RBC (Auto) >20 /hpf (0-2) H 09/12/24 20:44 U Hyaline Cast (Auto) 0-2 /lpf (0-2) 09/12/24 20:44 U Epithel Cells (Auto) 0-2 /hpf (0-2) 09/12/24 20:44 Urine Bacteria (Auto) None Seen (None Seen) 09/12/24 20:44
--- NOTE | 2024-09-14 08:20 | Operative Report ---
PG Post Operative Report Pre & Post Diagnosis Operation Date: 09/14/24 08:15 Pre-Op Diagnosis: (1)Moderate hiatal hernia: Post-Op Diagnosis: (1) Moderate hiatal hernia: I identified the patient and participated in the time-out.: Yes Procedure Operation Date: 09/14/24 08:15 Actual Procedures p Esophagogastroduodenoscopy(Not Applicable) - Manuel Weber DO Surgeon Manuel Weber DO Pipe Line Walker none Estimated Blood Loss 0 Findings Consistent with Post-Op Diagnosis Specimens none Description of Procedure After informed consent was obtained the patient was taken to the operating room and placed in a left lateral Aguirre's position. A bite block was placed. IV sedation was administered by anesthesia and titrated to effect. After adequate sedation the Scope was lubricated and inserted in the oropharynx and the proximal esophagus without difficulty. Keeping the lumen in view at all times scope was passed down into the stomach through the pylorus into the 1st, 2nd and 3rd portions of the duodenum. The scope was then withdrawn back into the distal stomach and retroflexed upon itself to evaluate the proximal stomach. There was a moderate probably 4 to 5 cm hiatal hernia present. There did not appear to be any gastric twisting or volvulus. There was no evidence of ischemia or even stricturing. The stomach is ultimately decompressed and the scope withdrawn. The patient was awakened and transferred to recovery in stable condition I attest to the content of the Intraoperative Record and any orders documented therein. Any exceptions are noted below.
--- NOTE | 2024-09-14 09:47 | Anesthesiology Progress Note ---
Date of Service September 14, 2024 Anesthesia Post Procedure Vital Signs Vital Signs: Temp Pulse Pulse Pulse Resp BP BP 09/14/24 08:40 36.7 C 72 21 147/73 H 09/14/24 08:30 74 14 154/71 H 09/14/24 08:21 36.3 C L 78 15 153/73 H 09/14/24 07:21 59 L 09/14/24 07:14 37.4 C 82 18 153/84 H 09/14/24 03:08 37.2 C 74 18 111/64 09/13/24 23:45 73 09/13/24 22:26 37.2 C 83 18 113/70 09/13/24 19:29 37.5 C 78 18 127/72 09/13/24 16:46 76 09/13/24 15:17 36.9 C 91 H 18 147/82 H 09/13/24 11:20 36.8 C 85 18 154/77 H Pulse Ox O2 Del Method O2 Flow Rate 09/14/24 08:40 96 Room Air 09/14/24 08:30 98 Room Air 09/14/24 08:21 98 Oxymask 10 09/14/24 07:21 09/14/24 07:14 93 Room Air 09/14/24 03:08 95 Room Air 09/13/24 23:45 09/13/24 22:26 94 Room Air 09/13/24 19:29 94 Room Air 09/13/24 16:46 09/13/24 15:17 95 Room Air 09/13/24 11:20 94 Room Air Transfer of Care Handoff Completed per policy Notes Mental Status: alert / awake / arousable Patient Amnestic to Procedure: Yes Nausea / Vomiting: adequately controlled Pain: adequately controlled Airway Patency, RR, SpO2: stable & adequate BP & HR: stable & adequate Hydration State: stable & adequate Anesthetic Complications: no major complications apparent and Pt Satisfied with anesthetic care
[2024-09-14 10:23] LABS: Hematocrit (blood only) 29.9 % (37.0-47.0); Hemoglobin 10.1 g/dl (12.0-16.0); Immature Granulocytes # (auto) 0.02 K/uL (0.01-0.20); Immature Granulocytes % (auto) 0.2 %; Mean Corpuscular Hemoglobin 30.8 pg (25.0-34.0); Mean Corpuscular Volume 91.2 fL (80.0-100.0); Platelet Count 191 K/uL (130-400); RDW Standard Deviation 42.8 fL (36.4-46.3); Red Blood Count 3.28 M/uL (4.20-5.40); White Blood Count 8.77 K/ul (4.8-10.8)
[2024-09-14 10:44] LABS: Alanine Aminotransferase 7.0 U/L (7-52); Albumin Globulin Ratio 1.3 (0.9-2); Alkaline Phosphatase 53.0 U/L (34-104); Anion Gap 7.0 (3-11); Bilirubin,Total 0.9 mg/dl (0.2-1.0); Blood Urea Nitrogen 11.0 mg/dl (6-23); Calcium 8.6 mg/dl (8.6-10.3); Carbon Dioxide 25.0 mmol/L (21-32); Chloride 104.0 mmol/L (98-107); Creatinine Clr Calc Pharmacy 44.4 ml/min; Globulin 2.7 gm/dl (2.5-4.0); Glucose 88.0 mg/dl (70-99(Fasting)); Magnesium 2.0 mg/dl (1.7-2.4); Potassium 3.7 mmol/L (3.5-5.1); Sodium 136.0 mmol/L (136-145); Total Protein 6.1 gm/dl (6.0-8.3)
--- NOTE | 2024-09-14 16:37 | Hospitalist Progress Note ---
Date of Service September 14, 2024 Assessment & Plan (1) Asymptomatic hypertensive urgency: Plan: per admitting service notes: Assessment and plan below following discussion of case with ED provider and reviewing patient history/pertinent normal/abnormal diagnostic test results. Hypertensive urgency Secondary to abdominal pain - improving Abdominal pain Multifactorial Bowel distention, history chronic constipation as per records Possible complicated UTI, history recurrent UTIs on methenamine suppression Rx, history ESBL as per records, no sepsis for now - CT abdomen: large hiatal hernia with rotation, GE wall thickinening- Gen Surg consulted, for EGD tomorrow Constipation- Lactulose, Suppository, will avoid enema in light of diverticulitis Diverticulitis vs Mesenteric Stranding- IV Ertapenem - Urine culture pending IV Ertapenem 09/14 s/p EGD by Dr. Weber: The scope was then withdrawn back into the distal stomach and retroflexed upon itself to evaluate the proximal stomach. There was a moderate probably 4 to 5 cm hiatal hernia present. There did not appear to be any gastric twisting or volvulus. There was no evidence of ischemia or even stricturing. The stomach is ultimately decompressed and the scope withdrawn. abdominal pain is improving today positive BMs continue IV ertapenem Diet advanced urine culture: Ros glabrata product Continue IV ertapenem Acute on chronic hyponatremia secondary illness- Na 136 hyperlipidemia, on statin Rx chronic anemia, hemoglobin at baseline rheumatoid arthritis, currently not on maintenance medications prediabetes, hemoglobin A1c of 5.6 from 2020 GERD, on PPI DVT prophylaxis. Lovenox subcu DNR Admission and Anticipated Discharge Date Admission Date: September 12, 2024 Subjective Seen resting in bed, not in distress, Comfortable States she feels better today than yesterday abdominal pain improving No nausea, tolerating clear liquids Positive BMs yesterday and today No melena or hematochezia Denies chest pain, shortness of breath, palpitations, dizziness No fevers or chills No other new symptoms Review of Systems Review of Systems: all noted and negative except for above Physical Exam Physical Exam: General- oriented x 3, not in distress, speaks in sentences with no effort or accessory muscle use Eyes- anicteric Neck- no JVD Lungs- clear breath sounds bilaterally, no rales/wheezes Heart- normal rate, regular rhythm; no murmurs Abdomen- normal bowel sounds, nondistended, soft, very mild tenderness BL lower quadrants Extremities- no pretibial edema, no calf tenderness Neuro- alert, oriented x 3; no gross focal neurologic deficits Skin- warm & dry Results & Data Results & Data Vital Signs (Past 12 Hours) Vital Signs Temp Pulse Pulse Pulse Resp BP BP 09/14/24 15:01 36.7 C 63 18 122/75 09/14/24 14:56 67 09/14/24 11:10 37.3 C 63 18 156/93 H 09/14/24 08:40 36.7 C 72 21 147/73 H 09/14/24 08:30 74 14 154/71 H 09/14/24 08:21 36.3 C L 78 15 153/73 H 09/14/24 07:21 59 L 09/14/24 07:14 37.4 C 82 18 153/84 H Pulse Ox O2 Del Method O2 Flow Rate 09/14/24 15:01 94 Room Air 09/14/24 14:56 09/14/24 11:10 95 Room Air 09/14/24 08:40 96 Room Air 09/14/24 08:30 98 Room Air 09/14/24 08:21 98 Oxymask 10 09/14/24 07:21 09/14/24 07:14 93 Room Air all noted and reviewed including below
--- NOTE | 2024-09-14 16:55 | Hospitalist Progress Note ---
Date of Service September 14, 2024 Assessment & Plan (1) Asymptomatic hypertensive urgency: Plan: per admitting service notes: Assessment and plan below following discussion of case with ED provider and reviewing patient history/pertinent normal/abnormal diagnostic test results. Hypertensive urgency Secondary to abdominal pain - improving Abdominal pain Multifactorial Bowel distention, history chronic constipation as per records Possible complicated UTI, history recurrent UTIs on methenamine suppression Rx, history ESBL as per records, no sepsis for now - CT abdomen: large hiatal hernia with rotation, GE wall thickinening- Gen Surg consulted, for EGD tomorrow Constipation- Lactulose, Suppository, will avoid enema in light of diverticulitis Diverticulitis vs Mesenteric Stranding- IV Ertapenem - Urine culture pending IV Ertapenem 09/14 s/p EGD by Dr. Weber: The scope was then withdrawn back into the distal stomach and retroflexed upon itself to evaluate the proximal stomach. There was a moderate probably 4 to 5 cm hiatal hernia present. There did not appear to be any gastric twisting or volvulus. There was no evidence of ischemia or even stricturing. The stomach is ultimately decompressed and the scope withdrawn. abdominal pain is improving today positive BMs continue IV ertapenem Diet advanced urine culture: Ros glabrata product Continue IV ertapenem Acute on chronic hyponatremia secondary illness- Na 136 hyperlipidemia, on statin Rx chronic anemia, hemoglobin at baseline rheumatoid arthritis, currently not on maintenance medications prediabetes, hemoglobin A1c of 5.6 from 2020 GERD, on PPI DVT prophylaxis. Lovenox subcu DNR Admission and Anticipated Discharge Date Admission Date: September 12, 2024 Results & Data Results & Data Vital Signs (Past 12 Hours) Vital Signs Temp Pulse Pulse Pulse Resp BP BP 09/14/24 15:01 36.7 C 63 18 122/75 09/14/24 14:56 67 09/14/24 11:10 37.3 C 63 18 156/93 H 09/14/24 08:40 36.7 C 72 21 147/73 H 09/14/24 08:30 74 14 154/71 H 09/14/24 08:21 36.3 C L 78 15 153/73 H 09/14/24 07:21 59 L 09/14/24 07:14 37.4 C 82 18 153/84 H Pulse Ox O2 Del Method O2 Flow Rate 09/14/24 15:01 94 Room Air 08/07/25 14:56 09/14/24 11:10 95 Room Air 09/14/24 08:40 96 Room Air 09/14/24 08:30 98 Room Air 09/14/24 08:21 98 Oxymask 10 09/14/24 07:21 09/14/24 07:14 93 Room Air
[2024-09-15 06:42] LABS: Hematocrit (blood only) 29.9 % (37.0-47.0); Hemoglobin 9.8 g/dl (12.0-16.0); Immature Granulocytes # (auto) 0.02 K/uL (0.01-0.20); Immature Granulocytes % (auto) 0.3 %; Mean Corpuscular Hemoglobin 30.2 pg (25.0-34.0); Mean Corpuscular Volume 92.0 fL (80.0-100.0); Platelet Count 192 K/uL (130-400); RDW Standard Deviation 44.7 fL (36.4-46.3); Red Blood Count 3.25 M/uL (4.20-5.40); White Blood Count 6.33 K/ul (4.8-10.8)
[2024-09-15 07:08] LABS: Anion Gap 5.0 (3-11); Bilirubin,Total 0.9 mg/dl (0.2-1.0); Calcium 8.4 mg/dl (8.6-10.3); Carbon Dioxide 26.0 mmol/L (21-32); Chloride 106.0 mmol/L (98-107); Magnesium 2.0 mg/dl (1.7-2.4); Potassium 3.6 mmol/L (3.5-5.1); Sodium 137.0 mmol/L (136-145)
[2024-09-15 07:14] LABS: Alanine Aminotransferase 6.0 U/L (7-52); Albumin Globulin Ratio 1.5 (0.9-2); Alkaline Phosphatase 50.0 U/L (34-104); Blood Urea Nitrogen 11.0 mg/dl (6-23); Creatinine Clr Calc Pharmacy 45.9 ml/min; Globulin 2.3 gm/dl (2.5-4.0); Glucose 78.0 mg/dl (70-99(Fasting)); Total Protein 5.8 gm/dl (6.0-8.3)
--- NOTE | 2024-09-15 07:40 | Surgery Progress Note ---
Date of Service September 15, 2024 Assessment & Plan (1) Esophageal hiatal hernia: Plan: Pt here w/ hiatal hernia EGD performed yesterday showing no volvulus/twisting, or evidence of ischemia in the stomach We have no plans for any further surgical intervention at this time She may continue to advance her diet as tolerates Treating UTI We will sign off, but call with any questions/concerns Admission and Anticipated Discharge Date Admission Date: September 12, 2024 Subjective Patient feeling fine. Tolerating liquids without nausea/vomiting/pain. Physical Exam Physical Exam: awake, lying in bed in no distress Respiratory: normal respiratory effort Gastrointestinal (Abdomen): Percussion/Palpation: abdomen soft; abdomen nontender Results & Data Vital Signs (Past 12 Hours) Vital Signs Temp Pulse Pulse Resp BP BP Pulse Ox 09/15/24 02:45 97.9 F 76 18 158/74 H 97 09/15/24 00:11 64 09/14/24 22:31 98.2 F 87 18 125/69 93 O2 Del Method 09/15/24 02:45 Room Air 09/15/24 00:11 09/14/24 22:31 Room Air PG Care Time/CCT Total # of Minutes Spent Total Time Spent with Patient: Total time spent is greater than 50% in coordination of care (as documented) at patient's floor/unit and/or counseling patient: Coding Level of Care Code 20366 SUB INP/OBS CARE 03/04MIN Diagnoses Esophageal hiatal hernia K44.9
[2024-09-15] MEDS: ADVANCED PROBIOTIC 625 MG CAPSULE PO SCH (13:16)
[2024-09-15] MEDS: ACETAMINOPHEN 500 MG TAB PO SCH (17:56)
--- NOTE | 2024-09-15 18:06 | Hospitalist Progress Note ---
Date of Service September 15, 2024 Assessment & Plan (1) Abdominal pain: Plan: (1) Asymptomatic hypertensive urgency: Plan: per admitting service notes: Assessment and plan below following discussion of case with ED provider and cleo graf patient history/pertinent normal/abnormal diagnostic test results. Hypertensive urgency Secondary to abdominal pain - improving Abdominal pain Multifactorial Bowel distention, history chronic constipation as per records Possible complicated UTI, history recurrent UTIs on methenamine suppression Rx, history ESBL as per records, no sepsis for now - CT abdomen: large hiatal hernia with rotation, GE wall thickinening- Gen Surg consulted, for EGD tomorrow Constipation- Lactulose, Suppository, will avoid enema in light of diverticulitis Diverticulitis vs Mesenteric Stranding- IV Ertapenem - Urine culture pending IV Ertapenem 09/14 s/p EGD by Dr. Weber: The scope was then withdrawn back into the distal stomach and retroflexed upon itself to evaluate the proximal stomach. There was a moderate probably 4 to 5 cm hiatal hernia present. There did not appear to be any gastric twisting or volvulus. There was no evidence of ischemia or even stricturing. The stomach is ultimately decompressed and the scope withdrawn. abdominal pain is improving today positive BMs continue IV ertapenem Diet advanced urine culture: Ros glabrata Continue IV ertapenem 09/15 clinically improving GI symptoms mostly resolved -- advance diet transition to Augmentin BID continue bowel regimen, Protonix -- PT/OT eval Acute on chronic hyponatremia secondary illness- Na 137 Hyperlipidemia, on statin Rx Chronic anemia, hemoglobin at baseline Rheumatoid arthritis, currently not on maintenance medications prediabetes, hemoglobin A1c of 5.6 from 2020 GERD, on PPI DVT prophylaxis. Lovenox subcu DNR Admission and Anticipated Discharge Date Admission Date: September 12, 2024 Subjective ff up for abdominal pain, etc seen resting in bed, comfortable in good spirits states she feels much better reports abdominal pain has resolved (+) BMs no nausea, tolerated full liquids for breakfast well no fever/chills no other symptoms Review of Systems Review of Systems: all noted and negative except for above Physical Exam Physical Exam: General- oriented x 3, not in distress, speaks in sentences with no effort or accessory muscle use Eyes- anicteric Neck- no JVD Lungs- clear breath sounds bilaterally, no rales/wheezes Heart- normal rate, regular rhythm; no murmurs Abdomen- normal bowel sounds, nondistended, soft, no tenderness Extremities- no pretibial edema, no calf tenderness Neuro- alert, oriented x 3; no gross focal neurologic deficits Skin- warm & dry Results & Data Results & Data Vital Signs (Past 12 Hours) Vital Signs Temp Pulse Pulse Resp BP Pulse Ox O2 Del Method 09/15/24 16:28 36.9 C 76 17 156/83 H 97 Room Air 09/15/24 14:00 91 H 09/15/24 11:18 36.6 C 76 17 136/77 97 Room Air 09/15/24 07:39 36.8 C 71 16 149/81 H 94 Room Air 09/15/24 07:30 52 L all noted and reviewed including below (1) Abdominal pain Abdominal location: unspecified location Qualified Code(s): R10.9 - Unspecified abdominal pain
--- NOTE | 2024-09-15 18:08 | Consultation ---
Date of Consultation September 15, 2024 History of Present Illness Attending Physician: Juan Beaulieu MD Allergies Allergy/AdvReac Type Severity Reaction Status Date / Time nitrofurantoin Allergy Intermediate all over Verified 05/08/24 13:28 pruritic rash trimethoprim Allergy Intermediate Rash Verified 05/08/24 13:28 Sulfa (Sulfonamide AdvReac Severe Gastrointestinal Verified 05/08/24 13:28 Antibiotics) Upset Home Medications Medication Instructions Recorded Confirmed Type atorvastatin 40 mg tablet 40 mg PO DAILY 03/21/24 09/12/24 History calcium 600 mg (as 1 tab PO DAILY 03/21/24 09/12/24 History carbonate)-vitamin D3 5 mcg (200 unit) tablet cetirizine 10 mg tablet 10 mg PO DAILY 03/21/24 09/12/24 History cyanocobalamin (vitamin B-12) 1,000 mcg PO DAILY 03/21/24 09/12/24 History 1,000 mcg tablet omeprazole 20 mg capsule,delayed 20 mg PO DAILY 03/21/24 09/12/24 History release tramadol 50 mg tablet 50 mg PO HS PRN Severe Pain (Scale 03/21/24 09/12/24 History Score 7-10) lisinopril 10 mg tablet 10 mg PO QAM #30 tabs 03/24/24 09/12/24 Rx methenamine hippurate 1 gram tablet 1 g PO BID #90 tabs 07/13/24 09/12/24 Rx fluconazole 150 mg tablet 150 mg PO ONCE 09/12/24 09/12/24 History Patient History Medical History (Updated 09/13/24 @ 10:19 by Bala Quiñones MD) UTI (urinary tract infection) High blood pressure Surgical History (Updated 09/14/24 @ 08:44 by Nohemi Carvajal RN) H/O esophagogastroduodenoscopy (09/14/24) Esophagogastroduodenoscopy - Manuel Weber, H/O: hysterectomy No significant past surgical history Family History Daughter Diabetes Nephrolithiasis Other Family history non-contributory Social History Smoking Status: Never smoker Second Hand Exposure: No; Do You Dip or Chew Tobacco: No; Tobacco Cessation Education Requested by Patient: No Hx Alcohol Use: No Hx Substance Use: No Preferred Language: Romansh Communication Ability: Effective Strategic Development Manager Required: No Beliefs That Will Affect Care: None Current Living Situation: Family Current Living Situation Comment: lives with daughter Other Information That Helps Us Care for You: No Feels Safe at Home: Yes Safety Concerns: Feels Safe At This Time Assistive Devices: Walker Results & Data Vital Signs (Past 12 Hours) Vital Signs Temp Pulse Pulse Resp BP Pulse Ox O2 Del Method 09/15/24 16:28 36.9 C 76 17 156/83 H 97 Room Air 09/15/24 14:00 91 H 09/15/24 11:18 36.6 C 76 17 136/77 97 Room Air 09/15/24 07:39 36.8 C 71 16 149/81 H 94 Room Air 09/15/24 07:30 52 L
[2024-09-15] MEDS: AMOXICILLIN/CLAVULANATE 875 MG TAB PO SCH (20:01)
[2024-09-15 23:44] VITALS: RESP 16
--- NOTE | 2024-09-16 10:49 | Hospitalist Progress Note ---
Date of Service September 16, 2024 delayed entry date of service noted above Assessment & Plan (1) Abdominal pain: Plan: (1) Asymptomatic hypertensive urgency: Plan: per admitting service notes: Assessment and plan below following discussion of case with ED provider and reviewing patient history/pertinent normal/abnormal diagnostic test results. Hypertensive urgency Secondary to abdominal pain - resolved Abdominal pain Multifactorial Hiatal Hernia, Constipation, possible Diverticulitis history chronic constipation as per records - CT abdomen: IMPRESSION: Lung bases: Alveolointerstitial opacities/infiltrates RT>LT. A distended gallbladder. A moderately large size hiatal hernia with rotation and gastroesophageal wall thickening. Mildly distended cecum/ascending colon seen filled with liquid stool/gas. Moderately large amount of formed stool seen in the rest of the colon. Diffuse descending colon and sigmoid diverticulosis coli. In the left lower abdominal quadrant pericolonic fat stranding/ mild diverticulitis versus reactive mesenteric stranding is seen. Clinical correlation is recommended. Constipation- Lactulose, Suppository, will avoid enema in light of diverticulitis Diverticulitis vs Mesenteric Stranding- IV Ertapenem - Urine culture: pending IV Ertapenem 09/14 s/p EGD by Dr. Weber: The scope was then withdrawn back into the distal stomach and retroflexed upon itself to evaluate the proximal stomach. There was a moderate probably 4 to 5 cm hiatal hernia present. There did not appear to be any gastric twisting or volvulus. There was no evidence of ischemia or even stricturing. The stomach is ultimately decompressed and the scope withdrawn. abdominal pain is improving today positive BMs continue IV ertapenem Diet advanced urine culture: Ros glabrata Continue IV ertapenem 09/16 clinically improved advanced diet (+) BMs GI symptoms resolved -- transitioned to Augmentin BID continue bowel regimen, Protonix Acute on chronic hyponatremia secondary illness- Na 137 Hyperlipidemia, on statin Rx Chronic anemia, hemoglobin at baseline --> further work up as outpatient Rheumatoid arthritis, currently not on maintenance medications prediabetes, hemoglobin A1c of 5.6 from 2020 GERD, on PPI DVT prophylaxis. Lovenox subcu given DNR Disposition d/c home ff up with PCP in 1 week plan of care discussed with patient and daughter Annelise over the phone in detail and at length all questions answered they are understanding, agreeable, comfortable with the plan of care Admission and Anticipated Discharge Date Admission Date: September 12, 2024 Subjective resting in bed, comfortable states she feels better overall no abdominal pain, nausea tolerating diet well no other new symptoms states she is ready and would like to be discharged discussed with daughter over the phone at bedside, she is agreeable for discharge Review of Systems Review of Systems: all noted and negative except for above Physical Exam Physical Exam: General- oriented x 3, not in distress, speaks in sentences with no effort or accessory muscle use Eyes- anicteric Neck- no JVD Lungs- clear breath sounds bilaterally, no rales/wheezes Heart- normal rate, regular rhythm; no murmurs Abdomen- normal bowel sounds, nondistended, soft, nontender Extremities- no pretibial edema, no calf tenderness Neuro- alert, oriented x 3; no gross focal neurologic deficits Skin- warm & dry Results & Data Results & Data Vital Signs (Past 12 Hours) Vital Signs Temp Pulse Resp BP BP Pulse Ox O2 Del Method 09/16/24 08:11 36.4 C L 67 16 126/65 97 Room Air 09/16/24 03:21 36.8 C 67 16 126/74 94 Room Air 09/15/24 23:20 36.8 C 78 16 101/55 L 95 Room Air all noted and reviewed including below (1) Abdominal pain Abdominal location: unspecified location Qualified Code(s): R10.9 - Unspecified abdominal pain
[2024-09-16 12:01] VITALS: BP 156/83; TEMP 98.1; O2SAT 94
[2024-09-16 14:37] VITALS: PULSE 91
--- NOTE | 2024-09-16 19:29 | Discharge Summary ---
Discharge Summary Date of Service September 16, 2024 Principal Dx & Hospital Course #1 = Principal Diagnosis (1) Abdominal pain: 1) Abdominal pain: Plan: (1) Asymptomatic hypertensive urgency: Plan: per admitting service notes: Assessment and plan below following discussion of case with ED provider and reviewing patient history/pertinent normal/abnormal diagnostic test results. Hypertensive urgency Secondary to abdominal pain - resolved Abdominal pain Multifactorial Hiatal Hernia, Constipation, possible Diverticulitis history chronic constipation as per records - CT abdomen: IMPRESSION: Lung bases: Alveolointerstitial opacities/infiltrates RT>LT. A distended gallbladder. A moderately large size hiatal hernia with rotation and gastroesophageal wall thickening. Mildly distended cecum/ascending colon seen filled with liquid stool/gas. Moderately large amount of formed stool seen in the rest of the colon. Diffuse descending colon and sigmoid diverticulosis coli. In the left lower abdominal quadrant pericolonic fat stranding/ mild diverticulitis versus reactive mesenteric stranding is seen. Clinical correlation is recommended. Constipation- Lactulose, Suppository, will avoid enema in light of diverticulitis Diverticulitis vs Mesenteric Stranding- IV Ertapenem - Urine culture: pending IV Ertapenem 09/14 s/p EGD by Dr. Weber: The scope was then withdrawn back into the distal stomach and retroflexed upon itself to evaluate the proximal stomach. There was a moderate probably 4 to 5 cm hiatal hernia present. There did not appear to be any gastric twisting or volvulus. There was no evidence of ischemia or even stricturing. The stomach is ultimately decompressed and the scope withdrawn. abdominal pain is improving today positive BMs continue IV ertapenem Diet advanced urine culture: Ros glabrata Continue IV ertapenem 09/16 clinically improved advanced diet (+) BMs GI symptoms resolved -- transitioned to Augmentin BID continue bowel regimen, Protonix Abnormal CT Abd/pelvis findings: Atherosclerotic calcified plaques, tortuosity/elongation of the aortoiliac vasculature. -Please refer to full report in the Ordered Studies section - Further work up, management, and ff up as outpatient Other chronic medical problems: Acute on chronic hyponatremia secondary illness- Na 137 Hyperlipidemia, on statin Rx Chronic anemia, hemoglobin at baseline --> further work up as outpatient Rheumatoid arthritis, currently not on maintenance medications prediabetes, hemoglobin A1c of 5.6 from 2020 GERD, on PPI DVT prophylaxis. Lovenox subcu given DNR Disposition d/c home ff up with PCP in 1 week plan of care discussed with patient and daughter Annelise over the phone in detail and at length all questions answered they are understanding, agreeable, comfortable with the plan of care Notes For Next Care Provider Medication Changes From Visit per medical reconciliation Admission HPI Per Admitting Provider History obtained from patient and records. Medical history significant for hypertension, hyperlipidemia, chronic anemia (baseline hemoglobin 10-11), rheumatoid arthritis, prediabetes, chronic hyponatremia, GERD, chronic constipation as per records, recurrent UTIs on chronic methenamine suppression Rx, history ESBL UTI. Last confinement March 2024 for hyponatremia. Nephrology recommended 2 L fluid restriction and discontinuing home diuretics on discharge. 2 days ago, patient noted achy abdominal pain associate with nausea and constipation symptoms. Denies headache, chest pain, SOB. Patient seen at PCP's office today for evaluation. No obstruction on outpatient x-ray. Laxatives prescribed. Patient brought to ER for worsening symptoms. SBP 190s upon arrival at the ER. Ceftriaxone administered at the ER. Medical History as above Surgical History : Hemorrhoidectomy, glaucoma surgeries, cataract surgeries, SCOTTY with BSO Family History : Lung cancer, RA, DM, heart disease, mood disorder Personal/Social history : Non-smoker, no EtOH intake, retired from factory work Admission Exam Per Admitting Provider GENERAL: Comfortable, slightly anxious, no respiratory distress SKIN: Pallor, warm HEENT: Pale palpebral conjunctivae, no ptosis, dry buccal mucosa NECK : Supple, no tenderness CHEST : CTA, no tenderness HEART : Tachycardic, no obvious murmurs ABDOMEN: Some distention, minimal central abdominal tenderness EXTREMITIES : No LE swelling/tenderness, palpable pulses, no other conspicuous deformities noted NEUROLOGIC : Coherent, no facial asymmetry, no other gross focality Discharge Exam General- oriented x 3, not in distress, speaks in sentences with no effort or accessory muscle use Eyes- anicteric Neck- no JVD Lungs- clear breath sounds bilaterally, no rales/wheezes Heart- normal rate, regular rhythm; no murmurs Abdomen- normal bowel sounds, nondistended, soft, nontender Extremities- no pretibial edema, no calf tenderness Neuro- alert, oriented x 3; no gross focal neurologic deficits Skin- warm & dry Updated Medication List Medication Instructions Recorded Confirmed Type atorvastatin 40 mg tablet 40 mg PO DAILY 03/21/24 09/12/24 History calcium 600 mg (as 1 tab PO DAILY 03/21/24 09/12/24 History carbonate)-vitamin D3 5 mcg (200 unit) tablet cetirizine 10 mg tablet 10 mg PO DAILY 03/21/24 09/12/24 History cyanocobalamin (vitamin B-12) 1,000 mcg PO DAILY 03/21/24 09/12/24 History 1,000 mcg tablet omeprazole 20 mg capsule,delayed 20 mg PO DAILY 03/21/24 09/12/24 History release tramadol 50 mg tablet 50 mg PO HS PRN Severe Pain (Scale 03/21/24 09/12/24 History Score 7-10) lisinopril 10 mg tablet 10 mg PO QAM #30 tabs 03/24/24 09/12/24 Rx methenamine hippurate 1 gram tablet 1 g PO BID #90 tabs 07/13/24 09/12/24 Rx L.acidop,casei,lactis,rham-B.lact,malaika 14 cap PO DAILY 14 days #14 caps 09/16/24 Rx 625 mg (10 billion cell) capsule (Advanced Probiotic) amoxicillin 875 mg-potassium 1 tab PO BID 5 days #10 tabs 09/16/24 Rx clavulanate 125 mg tablet lactulose 10 gram/15 mL oral 30 g (45 mL) PO DAILY #300 mL 09/16/24 Rx solution polyethylene glycol 3350 17 gram 17 g PO DAILY 30 days #30 ea 09/16/24 Rx oral powder packet (Miralax) Hospital Stay Data Consultations 09/12/24 21:54 Consult General Surgery Stat 09/12/24 22:49 ED Decision to Admit Stat Procedures Performed Operation Date: 09/14/24 08:15 Actual Procedures p Esophagogastroduodenoscopy(Not Applicable) - DO Manuel Farah DO Labor Relations Analyst none Estimated Blood Loss 0 Findings Consistent with Post-Op Diagnosis Specimens none Description of Procedure After informed consent was obtained the patient was taken to the operating room and placed in a left lateral Aguirre's position. A bite block was placed. IV sedation was administered by anesthesia and titrated to effect. After adequate sedation the Scope was lubricated and inserted in the oropharynx and the proximal esophagus without difficulty. Keeping the lumen in view at all times scope was passed down into the stomach through the pylorus into the 1st, 2nd and 3rd portions of the duodenum. The scope was then withdrawn back into the distal stomach and retroflexed upon itself to evaluate the proximal stomach. There was a moderate probably 4 to 5 cm hiatal hernia present. There did not appear to be any gastric twisting or volvulus. There was no evidence of ischemia or even stricturing. The stomach is ultimately decompressed and the scope withdrawn. The patient was awakened and transferred to recovery in stable condition I attest to the content of the Intraoperative Record and any orders documented therein. Any exceptions are noted below. Diagnostic Imagining Performed Laboratory Results WBC 6.33 K/ul (4.8-10.8) 09/15/24 05:57 RBC 3.25 M/uL (4.20-5.40) L 09/15/24 05:57 Hgb 9.8 g/dl (12.0-16.0) L 09/15/24 05:57 POC Hgb 11.6 g/dl (12.0-16.0) L 09/12/24 19:25 Hct 29.9 % (37.0-47.0) L 09/15/24 05:57 POC Hct 34 % (37-47) L 09/12/24 19:25 MCV 92.0 fL (80.0-100.0) 09/15/24 05:57 MCH 30.2 pg (25.0-34.0) 09/15/24 05:57 MCHC 32.8 g/dL (32.0-36.0) 09/15/24 05:57 RDW Std Deviation 44.7 fL (36.4-46.3) 09/15/24 05:57 RDW Coeff of Gera 13.3 % (11.5-14.5) 09/15/24 05:57 Plt Count 192 K/uL (130-400) 09/15/24 05:57 MPV 9.3 fL (9.4-12.4) L 09/15/24 05:57 Immature Gran % (Auto) 0.3 % 09/15/24 05:57 Neut % (Auto) 51.0 % 09/15/24 05:57 Lymph % (Auto) 35.2 % 09/15/24 05:57 [place] % (Auto) 11.8 % 09/15/24 05:57 Eos % (Auto) 1.1 % 09/15/24 05:57 Baso % (Auto) 0.6 % 09/15/24 05:57 Neut # (Auto) 3.22 K/uL (1.40-6.50) 09/15/24 05:57 Lymph # (Auto) 2.23 K/uL (1.20-3.40) 09/15/24 05:57 [place] # (Auto) 0.75 K/uL (0.11-0.59) H 09/15/24 05:57 Eos # (Auto) 0.07 K/uL (0.00-0.50) 09/15/24 05:57 Baso # (Auto) 0.04 K/uL (0.00-0.20) 09/15/24 05:57 Immature Gran # (Auto) 0.02 K/uL (0.01-0.20) 09/15/24 05:57 POC Sodium 131 mmol/L (135-144) L 09/12/24 19:25 Sodium 137 mmol/L (136-145) 09/15/24 05:57 POC Potassium 3.9 mmol/L (3.3-5.0) 09/12/24 19:25 Potassium 3.6 mmol/L (3.5-5.1) 09/15/24 05:57 POC Chloride 96 mmol/L (101-112) L 09/12/24 19:25 Chloride 106 mmol/L (98-107) 09/15/24 05:57 Carbon Dioxide 26 mmol/L (21-32) 09/15/24 05:57 POC Total CO2 23 mmol/L (24-31) L 09/12/24 19:25 Anion Gap 5 (3-11) 09/15/24 05:57 POC Anion Gap 17.0 mmol/L (16-25) 09/12/24 19:25 POC BUN 14 mg/dl (7-18) 09/12/24 19:25 BUN 11 mg/dl (6-23) 09/15/24 05:57 Creatinine 0.79 mg/dl (0.6-1.2) 09/15/24 05:57 POC Creatinine 0.8 mg/dl (0.6-1.3) 09/12/24 19:25 Est Cr Clr Drug Dosing 45.9 ml/min 09/15/24 05:57 eGFR 72.35 09/15/24 05:57 BUN/Creatinine Ratio 13.9 (10-20) 09/15/24 05:57 Glucose 78 mg/dl (70-99(Fasting)) 09/15/24 05:57 POC Glucose (other) 151 mg/dl (70-99) H 09/12/24 19:25 Estimat Average Glucose 117 mg/dl 09/13/24 03:18 Hemoglobin A1c 5.7 % (4.5-5.6) H 09/13/24 03:18 Osmolality 276 mOsm/kg (280-300) L 09/12/24 19:20 Calcium 8.4 mg/dl (8.6-10.3) L 09/15/24 05:57 POC Ioniz Calcium [place] 1.18 mmol/l (1.12-1.32) 09/12/24 19:25 Phosphorus 3.4 mg/dl (2.5-4.9) 09/15/24 05:57 Magnesium 2.0 mg/dl (1.7-2.4) 09/15/24 05:57 Total Bilirubin 0.9 mg/dl (0.2-1.0) 09/15/24 05:57 AST 16 U/L (13-39) 09/15/24 05:57 ALT 6 U/L (7-52) L 09/15/24 05:57 Alkaline Phosphatase 50 U/L (34-104) 09/15/24 05:57 Total Protein 5.8 gm/dl (6.0-8.3) L 09/15/24 05:57 Albumin 3.5 gm/dl (3.4-5.0) 09/15/24 05:57 Globulin 2.3 gm/dl (2.5-4.0) L 09/15/24 05:57 Albumin/Globulin Ratio 1.5 (0.9-2) 09/15/24 05:57 Lipase 6 U/L (11-82) L 09/12/24 19:20 TSH 1.154 uIu/ml (0.300-4.500) 09/12/24 19:20 Urine Color Yellow 09/12/24 20:44 Urine Appearance Clear (Clear) 09/12/24 20:44 Urine pH 6.5 (4.5-7.5) 09/12/24 20:44 Ur Specific [place] 1.032 (1.000-1.030) H 09/12/24 20:44 Urine Protein 1+ (Negative) H 09/12/24 20:44 Urine Glucose (UA) Negative (Negative) 09/12/24 20:44 Urine Ketones Trace (Negative) H 09/12/24 20:44 Urine Blood 2+ (Negative) H 09/12/24 20:44 Urine Nitrite Negative (Negative) 09/12/24 20:44 Urine Bilirubin Negative (Negative) 09/12/24 20:44 Urine Urobilinogen Negative (Negative) 09/12/24 20:44 Ur Leukocyte Esterase 1+ (Negative) H 09/12/24 20:44 Urine WBC (Auto) 21-50 /hpf (0-5) H 09/12/24 20:44 Urine RBC (Auto) >20 /hpf (0-2) H 09/12/24 20:44 U Hyaline Cast (Auto) 0-2 /lpf (0-2) 09/12/24 20:44 U Epithel Cells (Auto) 0-2 /hpf (0-2) 09/12/24 20:44 Urine Bacteria (Auto) None Seen (None Seen) 09/12/24 20:44 Hyaline Casts Present /lpf (None Presnt) A 09/12/24 20:44 Urine Comment 09/12/24 20:44 Impressions Abdomen/Pelvis CT 09/12/24 19:13 Exam(s): CT ABDOMEN + PELVIS With Contrast IV Amt: 90 ml optiray 320 EXAM: CT Abdomen and Pelvis With Intravenous Contrast CLINICAL HISTORY: Reason for exam: mid abd pain. TECHNIQUE: Axial computed tomography images of the abdomen and pelvis with intravenous contrast. CTDI is 17.26 mGy and DLP is 711.8 mGy-cm. Automated exposure control was utilized for the study. A dose lowering technique was utilized adhering to the principles of ALARA. CONTRAST: Patient received 90 ml optiray 320 of IV contrast COMPARISON: CT abdomen/pelvis: 03/22/2024 FINDINGS: Lung bases: Interval bibasilar alveolointerstitial opacities/infiltrates RT>LT.. Small calcified nodules/granulomas in the left lower lobe. No consolidation. ABDOMEN: Liver: Mild diffuse fatty hepatic infiltration. No mass. Gallbladder and bile ducts: Distended gallbladder. No calcified stones. No ductal dilation. Pancreas: Fatty infiltration of the pancreas.. No contour deforming pancreatic mass.. No ductal dilation. Spleen: Unremarkable. No splenomegaly. Adrenals: Unremarkable. No mass. Kidneys and ureters: There are bilateral renal cysts, largest is 3.0 x 2.2 cm seen anteriorly on the left. No solid mass. No hydronephrosis. Stomach and bowel: A moderately large size hiatal hernia is seen with an organoaxial rotation and with gastroesophageal wall thickening. Fluid and gas filled normal caliber small bowel loops. Mildly distended cecum/ascending colon is seen filled with liquid stool/gas. Moderately large amount of formed stool is seen in the rest of the colon. There is diffuse descending colon and sigmoid diverticulosis coli. In the left lower abdominal quadrant pericolonic mild inflammatory versus reactive mesenteric fat stranding is seen (series 300 image 37). No obstruction. No mucosal thickening. PELVIS: Appendix: No findings to suggest acute appendicitis. Bladder: Unremarkable. No mass. Reproductive: Unremarkable as visualized. ABDOMEN and PELVIS: Intraperitoneal space: No free air. No significant fluid collection. Bones/joints: Osteopenia. No acute fracture. No dislocation. L1 vertebral mild retrolisthesis. Multilevel moderately advanced degenerative thoracolumbosacral spondylotic changes seen. Soft tissues: Unremarkable. A small fat-containing right inguinal hernia. Vasculature: Atherosclerotic calcified plaques, tortuosity/elongation of the aortoiliac vasculature. No abdominal aortic aneurysm. Lymph nodes: Small mesenteric lymph nodes. No significant enlarged lymph nodes.. IMPRESSION: Lung bases: Alveolointerstitial opacities/infiltrates RT>LT. A distended gallbladder. A moderately large size hiatal hernia with rotation and gastroesophageal wall thickening. Mildly distended cecum/ascending colon seen filled with liquid stool/gas. Moderately large amount of formed stool seen in the rest of the colon. Diffuse descending colon and sigmoid diverticulosis coli. In the left lower abdominal quadrant pericolonic fat stranding/ mild diverticulitis versus reactive mesenteric stranding is seen. Clinical correlation is recommended. Additional findings as above . Electronically signed by: Giancarlo Du MD, HEDYR 09/12/24 20:54 PM Chest X-Ray 09/12/24 23:02 Exam(s): XR CXR 1 VIEW EXAM: XR Chest, 1 View CLINICAL HISTORY: Reason for exam: hyponatremia. TECHNIQUE: Frontal view of the chest. COMPARISON: 03/04/2024 FINDINGS: Lungs: Calcified granuloma left lung base. Subsegmental atelectasis right lung base. No consolidation. Pleural space: No significant pleural effusion. No pneumothorax. Heart: No cardiomegaly or pulmonary vascular congestion. Mediastinum: Small hiatal hernia. Bones/joints: No acute fracture. No dislocation. IMPRESSION: No acute findings in the chest. Electronically signed by: Al Mckinley M.D. 09/13/24 00:51 AM 09/12/24 19:13 CT abd pelvis IV con only Stat Pending Results Patient Have Any Pending Studies at Discharge: No Discharge Instructions Given to Patient (Per Discharging Provider) PLEASE REFER TO YOUR NEW MEDICATION LIST AND FOLLOW INSTRUCTIONS CAREFULLY. YOUR NEW MEDICATIONS INCLUDE: Augmentin- antibiotic for diverticulitis Miralax- daily laxative Lactulose- as needed for constipation/no bowel movement x 2 days PLEASE CALL YOUR PRIMARY CARE PHYSICIAN OR RETURN TO THE ER IF WITH WORSENING OF SYMPTOMS, INCLUDING abdominal pain, nausea/vomiting, fever/chills, constipation/diarrhea, etc FOLLOW UP WITH PRIMARY CARE PHYSICIAN IN 1 WEEK. Total Time Total Time Spent Total Time Spent (In Minutes): 55 minutes
== END 2024-09-16 14:37 | disposition home health service (06) | DRG 392 ==
LOC: ED 18:48 → 2W 23:11